=== PATIENT | female | born 1965 | race Hispanic/Latino ===

== ENCOUNTER 2018-03-23 12:43 | Emergency (ER) | payer MEDICARE ==
--- NOTE | 2018-03-23 13:17 | Emergency Department Report ---
ED Psych HPI - General Stated Complaint: EVALUATION Time Seen by Provider: 03/23/18 12:51 - History of Present Illness Initial Comments: Patient is 53 years old female with history of depression and anxiety and panic attack. Patient presented to the ER stating that she is having thoughts of killing herself. Patient does not have a specific plan. She's been very depressed recently. She denied any homicidal ideation, visual or auditory hallucination. MD Complaint: suicidal ideation, feels depressed - Related Data Home Medications Medication Instructions Recorded Confirmed Last Taken Gabapentin [Neurontin] 600 mg PO Q8H 06/20/15 06/20/15 06/20/15 Ibuprofen [Motrin 800 MG tab] 800 mg PO TID 06/20/15 06/20/15 06/20/15 clonazePAM [KlonoPIN] 2 mg PO TID 06/20/15 06/20/15 06/20/15 Allergies Allergy/AdvReac Type Severity Reaction Status Date / Time No Known Allergies Allergy Verified 06/14/15 13:01 ED Review of Systems ROS: Stated complaint: EVALUATION Other details as noted in HPI Comment: All other systems reviewed and negative Constitutional: denies: chills, fever Respiratory: denies: cough Gastrointestinal: denies: abdominal pain, nausea Musculoskeletal: denies: back pain Neurological: denies: headache, weakness ED Past Medical Hx - Past Medical History Hx Psychiatric Treatment: Yes (anxiety, panic attack) Additional medical history: jhoana's dz - Social History Smoking Status: Current Every Day Smoker Substance Use Type: None - Medications Home Medications: Home Medications Medication Instructions Recorded Confirmed Last Taken Type Gabapentin [Neurontin] 600 mg PO Q8H 06/20/15 06/20/15 06/20/15 History Ibuprofen [Motrin 800 MG tab] 800 mg PO TID 06/20/15 06/20/15 06/20/15 History clonazePAM [KlonoPIN] 2 mg PO TID 06/20/15 06/20/15 06/20/15 History ED Physical Exam - General Limitations: No Limitations General appearance: alert, in no apparent distress - Head Head exam: Present: atraumatic, normocephalic, normal inspection - Eye Eye exam: Present: normal appearance, PERRL - ENT ENT exam: Present: normal exam, normal orophraynx, mucous membranes moist - Neck Neck exam: Present: normal inspection, full ROM. Absent: tenderness, meningismus, lymphadenopathy, thyromegaly - Respiratory Respiratory exam: Present: normal lung sounds bilaterally. Absent: respiratory distress, wheezes, rales, rhonchi, chest wall tenderness, accessory muscle use, decreased breath sounds, prolonged expiratory - Cardiovascular Cardiovascular Exam: Present: regular rate, normal rhythm, normal heart sounds - GI/Abdominal GI/Abdominal exam: Present: soft, normal bowel sounds. Absent: distended, tenderness, guarding, rebound, rigid, organomegaly, mass, bruit, pulsatile mass , hernia - Extremities Exam Extremities exam: Present: normal inspection, full ROM, normal capillary refill - Back Exam Back exam: Present: normal inspection, full ROM. Absent: tenderness, CVA tenderness (R) - Neurological Exam Neurological exam: Present: alert, oriented X3, CN II-XII intact, normal gait, reflexes normal - Skin Skin exam: Present: warm, intact, normal color Critical care attestation.: If time is entered above; I have spent that time in minutes in the direct care of this critically ill patient, excluding procedure time. ED Disposition Clinical Impression: Depression, Suicidal ideation Disposition: DC/TX-65 PSY HOSP/PSY UNIT Is pt being admited?: No Condition: Stable Referrals: PRIMARY CARE, [Primary Care Provider] - 3-5 Days
[2018-03-23 13:39] LABS: Basophils # (Auto) 0.1 K/mm3 (0.0-0.1); Basophils % (Auto) 0.8 % (0.0-1.8); Eosinophils # (Auto) 0.1 K/mm3 (0.0-0.4); Eosinophils % (Auto) 0.9 % (0.0-4.3); Hematocrit 44.2 % (30.3-42.9); Hemoglobin 15.5 gm/dl (10.1-14.3); Lymphocytes # (Auto) 2.6 K/mm3 (1.2-5.4); Lymphocytes % (Auto) 32.3 % (13.4-35.0); Mean Corpuscular HGB Conc 35 % (30-34); Mean Corpuscular Hemoglobin 35 pg (28-32); Mean Corpuscular Volume 99 fl (79-97); Monocytes # (Auto) 0.4 K/mm3 (0.0-0.8); Monocytes % (Auto) 5.4 % (0.0-7.3); Platelet Count 343 K/mm3 (140-440); Red Blood Count 4.47 M/mm3 (3.65-5.03); Red Cell Distribution Width 13.5 % (13.2-15.2)
[2018-03-23 13:44] LABS: Bilirubin,Urine NEG (Negative); Blood,Urine NEG (Negative); Color,Urine Yellow (Yellow); Mucus,Urine FEW /HPF; Urobilinogen,Urine < 2.0 mg/dL (<2.0)
[2018-03-23 13:52] LABS: Amphetamine Screen,Urine PRESUMPTIVE NEGATIVE; Benzodiazepines Screen,Urine PRESUMPTIVE NEGATIVE; Cocaine Screen,Urine PRESUMPTIVE NEGATIVE; Methadone Screen,Urine PRESUMPTIVE NEGATIVE; Opiate Screen,Urine PRESUMPTIVE NEGATIVE
[2018-03-23 14:00] LABS: Alanine Aminotransferase 55 units/L (7-56); Albumin 4.9 g/dL (3.9-5); BUN/Creatinine Ratio 14; Blood Urea Nitrogen 11 mg/dL (7-17); Calcium 9.8 mg/dL (8.4-10.2); Hemolysis Index 10
[2018-03-23 14:07] LABS: Cannabinoid Screen,Urine PRESUMPTIVE POSITIVE
[2018-03-24 00:45] VITALS: BP 148/67
== END 2018-03-24 02:40 ==
LOC: EEVIPCON 12:43 → ED 12:43
DX: F32.9 Major depressive disorder, single episode, unspecified (principal); F41.0 Panic disorder [episodic paroxysmal anxiety]; F17.200 Nicotine dependence, unspecified, uncomplicated
CPT/HCPCS: 36415; 80053; 80307; 81001; 84703; 85025; 99285; G0480; 80320

== ENCOUNTER 2018-08-27 15:17 | Emergency (ER) | payer MEDICARE ==
[2018-08-27 16:37] LABS: Basophils # (Auto) 0.1 K/mm3 (0.0-0.1); Basophils % (Auto) 0.9 % (0.0-1.8); Eosinophils # (Auto) 0.1 K/mm3 (0.0-0.4); Eosinophils % (Auto) 1.1 % (0.0-4.3); Hemoglobin 15.3 gm/dl (10.1-14.3); Lymphocytes # (Auto) 2.9 K/mm3 (1.2-5.4); Lymphocytes % (Auto) 30.9 % (13.4-35.0); Mean Corpuscular HGB Conc 34 % (30-34); Mean Corpuscular Volume 99 fl (79-97); Monocytes # (Auto) 0.4 K/mm3 (0.0-0.8); Monocytes % (Auto) 4.7 % (0.0-7.3); Platelet Count 329 K/mm3 (140-440); Red Blood Count 4.54 M/mm3 (3.65-5.03); Red Cell Distribution Width 13.4 % (13.2-15.2)
--- NOTE | 2018-08-27 16:38 | Emergency Department Report ---
HPI - General Chief Complaint: Psych Time Seen by Provider: 08/27/18 15:56 - HPI HPI: 53-year-old female presents to the emergency department via EMS with complaint of suicidal thoughts and racing thoughts. Patient says that she has a history of anxiety for which he takes Ativan. She is a tobacco smoker and also occasionally will smoke marijuana but denies any other illicit drug use. She denies any history of schizophrenia, bipolar disorder or any other psychiatric conditions. She denies having a specific plan as to how she would harm herself. She denies any auditory or visual hallucinations or any homicidal ideations. 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 - Surgical History Past Surgical History?: Yes Additional Surgical History: hand surgery - Social History Smoking Status: Current Some Day Smoker Substance Use Type: None - Medications Home Medications: Home Medications Medication Instructions Recorded Confirmed Last Taken Type Gabapentin [Neurontin] 600 mg PO Q8H 06/20/15 06/20/15 06/20/15 History Ibuprofen [Motrin 800 MG tab] 800 mg PO TID 06/20/15 06/20/15 06/20/15 History clonazePAM [KlonoPIN] 2 mg PO TID 06/20/15 06/20/15 06/20/15 History ED Review of Systems ROS: Stated complaint: MENTAL HEALTH Other details as noted in HPI Comment: All other systems reviewed and negative Constitutional: denies: chills, fever Eyes: denies: eye pain, vision change ENT: denies: ear pain, throat pain Respiratory: denies: cough, shortness of breath Cardiovascular: denies: chest pain, palpitations Gastrointestinal: denies: abdominal pain, vomiting Genitourinary: denies: dysuria, discharge Musculoskeletal: denies: back pain, arthralgia Skin: denies: rash, lesions Neurological: denies: headache, numbness Psychiatric: suicidal thoughts. denies: auditory hallucinations, visual hallucinations Physical Exam - Physical Exam Physical Exam: GENERAL: The patient is well-developed well-nourished. HEENT: Normocephalic. Atraumatic. Patient has moist mucous membranes. EYES: Extraocular motions are intact. NECK: Supple. Trachea is midline. CHEST/LUNGS: Clear to auscultation. There is no respiratory distress noted. HEART/CARDIOVASCULAR: Regular. There is no tachycardia. There is no obvious murmur. ABDOMEN: Abdomen is soft, nontender. Patient has normal bowel sounds. There is no abdominal distention. SKIN: Skin is warm and dry. NEURO: The patient is awake, alert, and oriented. The patient is cooperative. The patient has no focal neurologic deficits. The patient has normal speech. MUSCULOSKELETAL: There is no tenderness or deformity. There is no evidence of acute injury. ED Medical Decision Making - Lab Data Result diagrams: 08/27/18 16:13 08/27/18 16:13 - Medical Decision Making Patient presents to the emergency department with suicidal ideations. For this reason she has been made a 1013 and we will seek inpatient psychiatric admission. Vital signs have been stable throughout her ED course thus far. Labs have been unremarkable including blood alcohol level and urine drug screen. The patient appears medically cleared for psychiatric admission. - Differential Diagnosis depression, anxiety, bipolar disorder, mood disorder Critical Care Time: No Critical care attestation.: If time is entered above; I have spent that time in minutes in the direct care of this critically ill patient, excluding procedure time. ED Disposition Clinical Impression: Suicidal ideations Depression Qualifiers: Depression Type: unspecified Qualified Code(s): F32.9 - Major depressive disorder, single episode, unspecified Disposition: DC/TX-65 PSY HOSP/PSY UNIT Is pt being admited?: No Condition: Stable Referrals: T[facility] SO[facility] [Primary Care Provider] - 3-5 Days Time of Disposition: 18:08
[2018-08-27 16:41] LABS: BUN/Creatinine Ratio 11; Blood Urea Nitrogen 8 mg/dL (7-17); Calcium 9.6 mg/dL (8.4-10.2); Hemolysis Index 11
[2018-08-27 17:03] VITALS: BP 146/91
[2018-08-27 17:17] LABS: Bacteria,Urine 1+ /HPF (Negative); Bilirubin,Urine NEG (Negative); Blood,Urine NEG (Negative); Color,Urine Straw (Yellow); Protein,Urine <15 mg/dL mg/dL (Negative); Urobilinogen,Urine < 2.0 mg/dL (<2.0)
[2018-08-27 17:27] LABS: Amphetamine Screen,Urine PRESUMPTIVE NEGATIVE; Benzodiazepines Screen,Urine PRESUMPTIVE NEGATIVE; Cannabinoid Screen,Urine PRESUMPTIVE NEGATIVE; Cocaine Screen,Urine PRESUMPTIVE NEGATIVE; Methadone Screen,Urine PRESUMPTIVE NEGATIVE; Opiate Screen,Urine PRESUMPTIVE NEGATIVE
[2018-08-27] MEDS ORDERED: NEURONTIN ONE (19:45)
[2018-08-27] MEDS ORDERED: ATIVAN PO SCH (20:00)
[2018-08-27] MEDS ORDERED: NEURONTIN PO SCH (22:00)
[2018-08-27] MEDS ORDERED: NON-FORMULARY (Gabapentin [Neurontin] 800 MG) PO SCH (22:00)
== END 2018-08-27 23:23 ==
LOC: ED 15:17 → EEVIPCON 15:17 → ED 23:23
DX: F32.9 Major depressive disorder, single episode, unspecified (principal); F17.200 Nicotine dependence, unspecified, uncomplicated; F41.0 Panic disorder [episodic paroxysmal anxiety]
CPT/HCPCS: 36415; 80048; 80307; 81001; 85025; 99285; G0480; 80320; J3246

== ENCOUNTER 2019-08-31 20:40 | Emergency (ER) | payer MEDICARE ==
[2019-08-31 21:20] LABS: Basophils % (Auto) 0.7 % (0.0-1.8); Eosinophils % (Auto) 0.7 % (0.0-4.3); Hematocrit 43.6 % (30.3-42.9); Hemoglobin 14.9 gm/dl (10.1-14.3); Lymphocytes # (Auto) 1.9 K/mm3 (1.2-5.4); Lymphocytes % (Auto) 31.6 % (13.4-35.0); Mean Corpuscular HGB Conc 34 % (30-34); Mean Corpuscular Volume 96 fl (79-97); Monocytes # (Auto) 0.3 K/mm3 (0.0-0.8); Monocytes % (Auto) 5.6 % (0.0-7.3); Platelet Count 279 K/mm3 (140-440); Red Blood Count 4.52 M/mm3 (3.65-5.03)
[2019-08-31 21:34] LABS: Bacteria,Urine 1+ /HPF (Negative); Bilirubin,Urine NEG (Negative); Blood,Urine SM (Negative); Color,Urine Yellow (Yellow); Mucus,Urine FEW /HPF; Urobilinogen,Urine < 2.0 mg/dL (<2.0)
[2019-08-31 21:36] LABS: BUN/Creatinine Ratio 13; Blood Urea Nitrogen 9 mg/dL (7-17); Calcium 9.9 mg/dL (8.4-10.2); Hemolysis Index 8
[2019-08-31 21:41] LABS: Amphetamine Screen,Urine PRESUMPTIVE NEGATIVE; Benzodiazepines Screen,Urine PRESUMPTIVE NEGATIVE; Cannabinoid Screen,Urine PRESUMPTIVE NEGATIVE; Cocaine Screen,Urine PRESUMPTIVE NEGATIVE; Methadone Screen,Urine PRESUMPTIVE NEGATIVE; Opiate Screen,Urine PRESUMPTIVE NEGATIVE
--- NOTE | 2019-08-31 22:14 | Emergency Department Report ---
ED General Adult HPI - General Chief complaint: Psych Stated complaint: SI Time Seen by Provider: 08/31/19 21:31 Source: patient Mode of arrival: Ambulatory Limitations: No Limitations - History of Present Illness Initial comments: Patient presents to the emergency department the chief complaint of suicidal ideation. Patient states that she has no plan to kill herself but is concerned because she is having suicidal thoughts. Patient also complains that she is having increased episodes of panic attacks and normally takes Ativan for them. Patient is anxious on my examination. Patient denies homicidal thoughts. Patient denies auditory visual hallucinations. -: Sudden Severity scale (0 -10): 0 Consistency: constant Improves with: none Worsens with: none Associated Symptoms: denies other symptoms Treatments Prior to Arrival: none - Related Data Home Medications Medication Instructions Recorded Confirmed Last Taken Gabapentin [Neurontin] 800 mg PO QID 08/27/18 08/27/18 08/27/18 LORazepam [Ativan] 1 mg PO TID 08/27/18 08/27/18 08/27/18 Allergies Allergy/AdvReac Type Severity Reaction Status Date / Time No Known Allergies Allergy Verified 06/14/15 13:01 ED Review of Systems ROS: Stated complaint: SI Other details as noted in HPI Constitutional: denies: chills, fever Eyes: denies: eye pain, eye discharge, vision change ENT: denies: ear pain, throat pain Respiratory: denies: cough, shortness of breath, wheezing Cardiovascular: denies: chest pain, palpitations Endocrine: no symptoms reported Gastrointestinal: denies: abdominal pain, nausea, diarrhea Genitourinary: denies: urgency, dysuria, discharge Musculoskeletal: denies: back pain, joint swelling, arthralgia Skin: denies: rash, lesions Neurological: denies: headache, weakness, paresthesias Psychiatric: suicidal thoughts. 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 - Surgical History Past Surgical History?: No Additional Surgical History: hand surgery - Social History Smoking Status: Current Every Day Smoker - Medications Home Medications: Home Medications Medication Instructions Recorded Confirmed Last Taken Type Gabapentin [Neurontin] 800 mg PO QID 08/27/18 08/27/1808/27/19 History LORazepam [Ativan] 1 mg PO TID 08/27/18 08/27/18 08/27/18 History ED Physical Exam - General Limitations: No Limitations General appearance: alert, in no apparent distress - Head Head exam: Present: atraumatic, normocephalic - Eye Eye exam: Present: normal appearance, PERRL, EOMI - ENT ENT exam: Present: mucous membranes moist - Neck Neck exam: Present: normal inspection - Respiratory Respiratory exam: Present: normal lung sounds bilaterally. Absent: respiratory distress - Cardiovascular Cardiovascular Exam: Present: regular rate, normal rhythm. Absent: systolic murmur, diastolic murmur, rubs, gallop - GI/Abdominal GI/Abdominal exam: Present: soft, normal bowel sounds. Absent: distended, tenderness - Extremities Exam Extremities exam: Present: normal inspection - Back Exam Back exam: Present: normal inspection - Neurological Exam Neurological exam: Present: alert, oriented X3, CN II-XII intact. Absent: motor sensory deficit - Psychiatric Psychiatric exam: Present: normal affect, normal mood, suicidal ideation - Skin Skin exam: Present: warm, dry, intact, normal color. Absent: rash ED Medical Decision Making - Lab Data Result diagrams: 08/31/19 21:05 08/31/19 21:05 Lab Results 08/31/19 08/31/19 08/31/19 Range/Units 21:05 21:05 21:05 WBC (4.5-11.0) K/mm3 RBC (3.65-5.03) M/mm3 Hgb (10.1-14.3) gm/dl Hct (30.3-42.9) % MCV (79-97) fl MCH (28-32) pg MCHC (30-34) % RDW (13.2-15.2) % Plt Count (140-440) K/mm3 Lymph % (Auto) (13.4-35.0) % [place] % (Auto) (0.0-7.3) % Eos % (Auto) (0.0-4.3) % Baso % (Auto) (0.0-1.8) % Lymph # (1.2-5.4) K/mm3 [place] # (0.0-0.8) K/mm3 Eos # (0.0-0.4) K/mm3 Baso # (0.0-0.1) K/mm3 Seg Neutrophils % (40.0-70.0) % Seg Neutrophils # (1.8-7.7) K/mm3 Sodium 136 L (137-145) mmol/L Potassium 3.6 (3.6-5.0) mmol/L Chloride 99.2 (98-107) mmol/L Carbon Dioxide 21 L (22-30) mmol/L Anion Gap 19 mmol/L BUN 9 (7-17) mg/dL Creatinine 0.7 (0.7-1.2) mg/dL Estimated GFR > 60 ml/min BUN/Creatinine Ratio 13 % Glucose 104 H (65-100) mg/dL Calcium 9.9 (8.4-10.2) mg/dL Urine Color (Yellow) Urine Turbidity (Clear) Urine pH (5.0-7.0) Ur Specific [place] (1.003-1.030) Urine Protein (Negative) mg/dL Urine Glucose (UA) (Negative) mg/dL Urine Ketones (Negative) mg/dL Urine Blood (Negative) Urine Nitrite (Negative) Urine Bilirubin (Negative) Urine Urobilinogen (<2.0) mg/dL Ur Leukocyte Esterase (Negative) Urine WBC (Auto) (0.0-6.0) /HPF Urine RBC (Auto) (0.0-6.0) /HPF U Epithel Cells (Auto) (0-13.0) /HPF Urine Bacteria (Auto) (Negative) /HPF Urine Mucus /HPF Salicylates < 0.3 L (2.8-20.0) mg/dL Urine Opiates Screen Urine Methadone Screen Acetaminophen < 5.0 L (10.0-30.0) ug/mL Ur Barbiturates Screen Ur Phencyclidine Scrn Ur Amphetamines Screen U Benzodiazepines Scrn Urine Cocaine Screen U Marijuana (THC) Screen Drugs of Abuse Note Plasma/Serum Alcohol (0-0.07) % 08/31/19 08/31/19 08/31/19 Range/Units 21:05 21:05 21:19 WBC 6.0 (4.5-11.0) K/mm3 RBC 4.52 (3.65-5.03) M/mm3 Hgb 14.9 H (10.1-14.3) gm/dl Hct 43.6 H (30.3-42.9) % MCV 96 (79-97) fl MCH 33 H (28-32) pg MCHC 34 (30-34) % RDW 13.0 L (13.2-15.2) % Plt Count 279 (140-440) K/mm3 Lymph % (Auto) 31.6 (13.4-35.0) % [place] % (Auto) 5.6 (0.0-7.3) % Eos % (Auto) 0.7 (0.0-4.3) % Baso % (Auto) 0.7 (0.0-1.8) % Lymph # 1.9 (1.2-5.4) K/mm3 [place] # 0.3 (0.0-0.8) K/mm3 Eos # 0.0 (0.0-0.4) K/mm3 Baso # 0.0 (0.0-0.1) K/mm3 Seg Neutrophils % 61.4 (40.0-70.0) % Seg Neutrophils # 3.7 (1.8-7.7) K/mm3 Sodium (137-145) mmol/L Potassium (3.6-5.0) mmol/L Chloride (98-107) mmol/L Carbon Dioxide (22-30) mmol/L Anion Gap mmol/L BUN (7-17) mg/dL Creatinine (0.7-1.2) mg/dL Estimated GFR ml/min BUN/Creatinine Ratio % Glucose (65-100) mg/dL Calcium (8.4-10.2) mg/dL Urine Color Yellow (Yellow) Urine Turbidity Clear (Clear) Urine pH 5.0 (5.0-7.0) Ur Specific [place] 1.012 (1.003-1.030) Urine Protein 30 mg/dl (Negative) mg/dL Urine Glucose (UA) Neg (Negative) mg/dL Urine Ketones 20 (Negative) mg/dL Urine Blood Sm (Negative) Urine Nitrite Neg (Negative) Urine Bilirubin Neg (Negative) Urine Urobilinogen < 2.0 (<2.0) mg/dL Ur Leukocyte Esterase Tr (Negative) Urine WBC (Auto) 6.0 (0.0-6.0) /HPF Urine RBC (Auto) 2.0 (0.0-6.0) /HPF U Epithel Cells (Auto) 1.0 (0-13.0) /HPF Urine Bacteria (Auto) 1+ (Negative) /HPF Urine Mucus Few /HPF Salicylates (2.8-20.0) mg/dL Urine Opiates Screen Urine Methadone Screen Acetaminophen (10.0-30.0) ug/mL Ur Barbiturates Screen Ur Phencyclidine Scrn Ur Amphetamines Screen U Benzodiazepines Scrn Urine Cocaine Screen U Marijuana (THC) Screen Drugs of Abuse Note Plasma/Serum Alcohol < 0.01 (0-0.07) % 08/31/19 Range/Units 21:19 WBC (4.5-11.0) K/mm3 RBC (3.65-5.03) M/mm3 Hgb (10.1-14.3) gm/dl Hct (30.3-42.9) % MCV (79-97) fl MCH (28-32) pg MCHC (30-34) % RDW (13.2-15.2) % Plt Count (140-440) K/mm3 Lymph % (Auto) (13.4-35.0) % [place] % (Auto) (0.0-7.3) % Eos % (Auto) (0.0-4.3) % Baso % (Auto) (0.0-1.8) % Lymph # (1.2-5.4) K/mm3 [place] # (0.0-0.8) K/mm3 Eos # (0.0-0.4) K/mm3 Baso # (0.0-0.1) K/mm3 Seg Neutrophils % (40.0-70.0) % Seg Neutrophils # (1.8-7.7) K/mm3 Sodium (137-145) mmol/L Potassium (3.6-5.0) mmol/L Chloride (98-107) mmol/L Carbon Dioxide (22-30) mmol/L Anion Gap mmol/L BUN (7-17) mg/dL Creatinine (0.7-1.2) mg/dL Estimated GFR ml/min BUN/Creatinine Ratio % Glucose (65-100) mg/dL Calcium (8.4-10.2) mg/dL Urine Color (Yellow) Urine Turbidity (Clear) Urine pH (5.0-7.0) Ur Specific [place] (1.003-1.030) Urine Protein (Negative) mg/dL Urine Glucose (UA) (Negative) mg/dL Urine Ketones (Negative) mg/dL Urine Blood (Negative) Urine Nitrite (Negative) Urine Bilirubin (Negative) Urine Urobilinogen (<2.0) mg/dL Ur Leukocyte Esterase (Negative) Urine WBC (Auto) (0.0-6.0) /HPF Urine RBC (Auto) (0.0-6.0) /HPF U Epithel Cells (Auto) (0-13.0) /HPF Urine Bacteria (Auto) (Negative) /HPF Urine Mucus /HPF Salicylates (2.8-20.0) mg/dL Urine Opiates Screen Presumptive negative Urine Methadone Screen Presumptive negative Acetaminophen (10.0-30.0) ug/mL Ur Barbiturates Screen Presumptive negative Ur Phencyclidine Scrn Presumptive negative Ur Amphetamines Screen Presumptive negative U Benzodiazepines Scrn Presumptive negative Urine Cocaine Screen Presumptive negative U Marijuana (THC) Screen Presumptive negative Drugs of Abuse Note Disclamer Plasma/Serum Alcohol (0-0.07) % - Medical Decision Making MEDICALLY CLEARED AWAITING MENTAL HEALTH EVALUATION Critical care attestation.: If time is entered above; I have spent that time in minutes in the direct care of this critically ill patient, excluding procedure time. ED Disposition Clinical Impression: Suicidal ideation Disposition: DC/TX-65 PSY HOSP/PSY UNIT Is pt being admited?: No Does the pt Need Aspirin: No Condition: Stable Referrals: PRIMARY CARE, [Primary Care Provider] - 3-5 Days
[2019-08-31] MEDS ORDERED: LORazepam 1 MG TAB PO ONE (22:46)
[2019-08-31] MEDS ORDERED: LORazepam 1 MG TAB ONE (22:46)
[2019-09-01] MEDS ORDERED: LORazepam 1 MG TAB PO ONE (11:27)
[2019-09-01 20:09] VITALS: BP 149/87
== END 2019-09-01 22:58 | disposition other institution (70) ==
LOC: ED 20:40
DX: R45.851 Suicidal ideations (principal); F41.9 Anxiety disorder, unspecified; F17.200 Nicotine dependence, unspecified, uncomplicated; Z98.890 Other specified postprocedural states; Z79.899 Other long term (current) drug therapy
CPT/HCPCS: 36415; 80048; 80307; 80320; 81001; 85025; G0480

== ENCOUNTER 2019-09-26 23:21 | Emergency (ER) | payer MEDICARE ==
--- NOTE | 2019-09-26 23:38 | Emergency Department Report ---
HPI - General Time Seen by Provider: 09/26/19 23:25 - HPI HPI: 54-year-old female presents to the emergency department via EMS with a complaint of depression and suicidal ideations. The patient also admits to some generic homicidal ideations that she does not want to hurt anyone in particular but does say that she feels "like I might hurt somebody." The patient denies any specific reason as to why she is feeling so depressed and suicidal at this time. The suicidal ideation started earlier today. Patient says that she has a diagnosed history of anxiety for which she takes Ativan. She also has a medical history of "permanent nerve damage" for which she takes gabapentin. She has been inpatient at [facility] in the past. She is a tobacco smoker but denies an y illicit drug use or any heavy alcohol use/abuse. 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 - Surgical History Past Surgical History?: Yes Hx Cholecystectomy: No Hx Appendectomy: No Additional Surgical History: hand surgery - Social History Smoking Status: Current Some Day Smoker Substance Use Type: None - Medications Home Medications: Home Medications Medication Instructions Recorded Confirmed Last Taken Type LORazepam [Ativan] 1 mg PO TID 08/27/18 09/02/19 08/27/18 History Doxepin [SINEquan] 10 mg PO QHS #30 capsule 09/10/19 Unknown Rx Escitalopram [Lexapro] 5 mg PO QDAY #30 tablet 09/10/19 Unknown Rx Gabapentin [Neurontin] 800 mg PO TID #90 09/10/19 Unknown Rx Melatonin [Melatonin 5MG TAB] 5 mg PO QHS PRN #30 tablet 09/10/19 Unknown Rx Nystatin [Nystop Powder] 1 applic TP BID powder 09/10/19 Unknown Rx ED Review of Systems ROS: Stated complaint: SUICIDAL IDEATIONS Other details as noted in HPI Comment: All other systems reviewed and negative Constitutional: denies: chills, fever Eyes: denies: eye pain, vision change ENT: denies: ear pain, throat pain Respiratory: denies: cough, shortness of breath Cardiovascular: denies: chest pain, palpitations Gastrointestinal: denies: abdominal pain, vomiting Musculoskeletal: denies: back pain, arthralgia Neurological: denies: headache, weakness Psychiatric: anxiety, depression, homicidal thoughts, suicidal thoughts. denies: auditory hallucinations, visual hallucinations Physical Exam - Physical Exam Vital Signs: Vital Signs 09/26/19 23:30 Temperature 98.1 F Pulse Rate 89 Respiratory 18 Rate Blood Pressure 113/97 O2 Sat by Pulse 96 Oximetry Physical Exam: GENERAL: The patient is well-developed well-nourished. HENT: Normocephalic. Atraumatic. Patient has moist mucous membranes. EYES: Extraocular motions are intact. NECK: Supple. Trachea is midline. CHEST/LUNGS: Clear to auscultation. There is no respiratory distress noted. HEART/CARDIOVASCULAR: Regular. There is no tachycardia. ABDOMEN: Abdomen is soft, nontender. Patient has normal bowel sounds. SKIN: Skin is warm and dry. NEURO: The patient is awake, alert, and oriented. The patient is cooperative. Normal speech. MUSCULOSKELETAL: There is no tenderness or deformity. There is no evidence of acute injury. ED Course Vital Signs 09/26/19 23:30 Temperature 98.1 F Pulse Rate 89 Respiratory 18 Rate Blood Pressure 113/97 O2 Sat by Pulse 96 Oximetry ED Medical Decision Making - Lab Data Result diagrams: 09/26/19 23:35 09/26/19 23:35 - Medical Decision Making This patient presents to the emergency department with complaint of depression and suicidal ideations. However the reason for these feelings are nonspecific. The patient says that she would overdose on pills in order to harm herself. For all these reasons the patient has been made a 1013. Patient's labs are mostly unremarkable including CBC, metabolic panel, blood alcohol level, urine drug screen, but the patient does have a urinary tract infection. She has been started on Macrobid. Vital signs stable throughout her ED course. The patient is medically cleared for psychiatric placement. - Differential Diagnosis Depression, bipolar disorder, schizophrenia, schizoaffective, substance abu Critical Care Time: No Critical care attestation.: If time is entered above; I have spent that time in minutes in the direct care of this critically ill patient, excluding procedure time. ED Disposition Clinical Impression: Suicidal ideations Depression Qualifiers: Depression Type: unspecified Qualified Code(s): F32.9 - Major depressive disorder, single episode, unspecified Disposition: DC/TX-65 PSY HOSP/PSY UNIT Is pt being admited?: No Condition: Stable Time of Disposition: 05:58
[2019-09-27 00:25] LABS: Bacteria,Urine 1+ /HPF (Negative); Bilirubin,Urine NEG (Negative); Blood,Urine SM (Negative); Color,Urine Yellow (Yellow); Mucus,Urine 2+ /HPF; Urobilinogen,Urine < 2.0 mg/dL (<2.0)
[2019-09-27 00:28] LABS: Amphetamine Screen,Urine PRESUMPTIVE NEGATIVE; Benzodiazepines Screen,Urine PRESUMPTIVE NEGATIVE; Cannabinoid Screen,Urine PRESUMPTIVE NEGATIVE; Cocaine Screen,Urine PRESUMPTIVE NEGATIVE; Methadone Screen,Urine PRESUMPTIVE NEGATIVE; Opiate Screen,Urine PRESUMPTIVE NEGATIVE
[2019-09-27 00:44] LABS: Basophils # (Auto) 0.1 K/mm3 (0.0-0.1); Basophils % (Auto) 0.8 % (0.0-1.8); Eosinophils # (Auto) 0.1 K/mm3 (0.0-0.4); Eosinophils % (Auto) 1.3 % (0.0-4.3); Hemoglobin 15.1 gm/dl (10.1-14.3); Lymphocytes # (Auto) 1.9 K/mm3 (1.2-5.4); Mean Corpuscular HGB Conc 34 % (30-34); Mean Corpuscular Volume 98 fl (79-97); Monocytes # (Auto) 0.4 K/mm3 (0.0-0.8); Monocytes % (Auto) 6.7 % (0.0-7.3); Platelet Count 307 K/mm3 (140-440); Red Blood Count 4.61 M/mm3 (3.65-5.03)
[2019-09-27 01:09] LABS: BUN/Creatinine Ratio 14; Blood Urea Nitrogen 11 mg/dL (7-17); Calcium 10.2 mg/dL (8.4-10.2); Hemolysis Index 4
[2019-09-27] MEDS ORDERED: LORazepam 1 MG TAB PO ONE ×3 (02:13→12:19)
[2019-09-27] MEDS: NITROFURANTOIN MONOHYD/M-CRYST 100 MG CAP PO SCH ×2 (02:17→11:12)
[2019-09-27 08:44] VITALS: BP 128/89
== END 2019-09-27 15:00 ==
LOC: ED 23:21
DX: F32.9 Major depressive disorder, single episode, unspecified (principal); R45.851 Suicidal ideations; F17.200 Nicotine dependence, unspecified, uncomplicated; F41.9 Anxiety disorder, unspecified
CPT/HCPCS: 36415; 80048; 80307; 80320; 81001; 85025; 87076; 87086; 87186; G0480

== ENCOUNTER 2020-01-29 11:32 | Emergency (ER) | payer MEDICARE ==
[2020-01-29 12:44] VITALS: BP 134/87
[2020-01-29] MEDS ORDERED: MELATONIN 5 MG TAB PO PRN (14:10)
[2020-01-29] MEDS ORDERED: LORazepam 1 MG TAB PO ONE (14:11)
[2020-01-29] MEDS ORDERED: GABAPENTIN 400 MG CAP PO ONE (14:12)
[2020-01-29 14:44] LABS: Basophils % (Auto) 0.7 % (0.0-1.8); Eosinophils # (Auto) 0.1 K/mm3 (0.0-0.4); Eosinophils % (Auto) 1.2 % (0.0-4.3); Hematocrit 44.6 % (30.3-42.9); Hemoglobin 15.1 gm/dl (10.1-14.3); Lymphocytes # (Auto) 1.8 K/mm3 (1.2-5.4); Lymphocytes % (Auto) 26.4 % (13.4-35.0); Mean Corpuscular HGB Conc 34 % (30-34); Mean Corpuscular Volume 99 fl (79-97); Monocytes # (Auto) 0.3 K/mm3 (0.0-0.8); Monocytes % (Auto) 4.3 % (0.0-7.3); Platelet Count 297 K/mm3 (140-440); Red Blood Count 4.52 M/mm3 (3.65-5.03); Red Cell Distribution Width 13.5 % (13.2-15.2)
--- NOTE | 2020-01-29 14:44 | Emergency Department Report ---
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 Patient has been feeling suicidal since last night. She denies a trigger. She denies plan or previous suicide attempt. She wants to go to [facility] or [facility]. She denies auditory visual hallucinations. She is requesting continuation of her chronic Ativan and gabapentin. She states she is feeling anxious at this time - Related Data Home Medications Medication Instructions Recorded Confirmed Last Taken LORazepam [Ativan] 1 mg PO TID 08/27/18 01/29/20 08/27/18 Previous Rx's Medication Instructions Recorded Last Taken Type Doxepin [SINEquan] 10 mg PO QHS #30 capsule 09/10/19 Unknown Rx Escitalopram [Lexapro] 5 mg PO QDAY #30 tablet 09/10/19 Unknown Rx Gabapentin [Neurontin] 800 mg PO TID #90 09/10/19 Unknown Rx Melatonin [Melatonin 5MG TAB] 5 mg PO QHS PRN #30 tablet 09/10/19 Unknown Rx Nystatin [Nystop Powder] 1 applic TP BID powder 09/10/19 Unknown Rx Allergies Allergy/AdvReac Type Severity Reaction Status Date / Time No Known Allergies Allergy Verified 06/14/15 13:01 ED Review of Systems ROS: Stated complaint: SI Other details as noted in HPI Comment: All other systems reviewed and negative 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 - Surgical History Hx Cholecystectomy: No Hx Appendectomy: No Additional Surgical History: hand surgery - Social History Smoking Status: Current Every Day Smoker Substance Use Type: None - Medications Home Medications: Home Medications Medication Instructions Recorded Confirmed Last Taken Type LORazepam [Ativan] 1 mg PO TID 08/27/18 01/29/20 08/27/18 History Doxepin [SINEquan] 10 mg PO QHS #30 capsule 09/10/19 01/29/20 Unknown Rx Escitalopram [Lexapro] 5 mg PO QDAY #30 tablet 09/10/19 01/29/20 Unknown Rx Gabapentin [Neurontin] 800 mg PO TID #90 09/10/19 01/29/20 Unknown Rx Melatonin [Melatonin 5MG TAB] 5 mg PO QHS PRN #30 tablet 09/10/19 01/29/20 Unknown Rx Nystatin [Nystop Powder] 1 applic TP BID powder 09/10/19 01/29/20 Unknown Rx ED Physical Exam - General Limitations: No Limitations - Other Other exam information: General: No acute distress Head: Atraumatic Eyes: normal appearance ENT: Moist mucous membranes Neck: Normal appearance, no midline tenderness Chest: Clear to auscultation bilaterally CV: Regular rate and rhythm Abdomen: Soft, normal bowel sounds, nontender, nondistended, no rebound or guarding Back: Normal inspection Extremity: Normal inspection, full range of motion Neuro: Alert O x 3, no facial asymmetry, speech clear, no gross motor sensory deficit Psych: Appropriate behavior Skin: No rash ED Course Vital Signs 01/29/20 01/29/20 01/29/20 12:32 12:45 14:47 Temperature 99.1 F Pulse Rate 98 H Respiratory 18 Rate Blood Pressure 134/87 O2 Sat by Pulse 99 98 Oximetry - Consultations Consultation #1: 01/29/20 16:25 Patient received mental health evaluation. Patient does not meet criteria for inpatient psychiatric treatment and case was discussed with nurse practitioner. Patient also has a outpatient counselor and it was verified the patient has medications currently as well as prescriptions for a 3-month supply of her medications. Since patient has outpatient counseling resources in place and has access to his medications she will be discharged. As per crisis note: Pt is a 54 yo female presenting to ED for MHE, as pt reported SI and requested to be admitted to [facility]. During ax, pt presented as calm and cooperative, with congruent affect. Pt displays lucid thought process. Pt stated she came in for suicidal ideations. Pt denies plan. Pt denies A/V H. Pt reports a dx of Anxiety and Panic Attacks, with connection to OP tx. Per records, pt is connected to [facility]. Pt informed collections representative that she has been out of her psychiatric medication. Pt initially reported attending day program Tuesday, Tuesday and Tuesday. Once collections representative attempted to explore f/u care on Tuesday to address medication concern, pt recanted and stated she does not go to program until Tuesday. Multicraft Operator contacted shield cleaner, Silvia of [facility] to inquire about pts treatment. Per Silvia, pt last received a 3-month supply for medication on December 18. Multicraft Operator informed that contact will be made with pharmacy to check if refill was picked up. Multicraft Operator also informed that pt is scheduled for day program services Tuesday-Tuesday; however, has recently not been coming out of [facility] when being picked up in the morning. Per Silvia, she will call to encourage pt to attend. Pt is scheduled to see SENIOR STORAGE ENGINE[facility] this upcoming , and medication will be explored. Recommendations: Multicraft Operator presents to ED with passive SI and is actively seeking IP tx admission, although she does not meet criteria for IP tx currently and is not presenting with acute sxs. Pt is well known to psychiatric team and is being recommended for discharge, with f/u OP tx with [facility]. Multicraft Operator confirmed with OP team. Case has been briefed with psychiatry team. ED Medical Decision Making - Lab Data Result diagrams: 01/29/20 14:27 01/29/20 14:27 Lab Results 01/29/20 01/29/20 01/29/20 Range/Units 14:27 14:27 14:27 WBC 6.8 (4.5-11.0) K/mm3 RBC 4.52 (3.65-5.03) M/mm3 Hgb 15.1 H (10.1-14.3) gm/dl Hct 44.6 H (30.3-42.9) % MCV 99 H (79-97) fl MCH 33 H (28-32) pg MCHC 34 (30-34) % RDW 13.5 (13.2-15.2) % Plt Count 297 (140-440) K/mm3 Lymph % (Auto) 26.4 (13.4-35.0) % [place] % (Auto) 4.3 (0.0-7.3) % Eos % (Auto) 1.2 (0.0-4.3) % Baso % (Auto) 0.7 (0.0-1.8) % Lymph # 1.8 (1.2-5.4) K/mm3 [place] # 0.3 (0.0-0.8) K/mm3 Eos # 0.1 (0.0-0.4) K/mm3 Baso # 0.0 (0.0-0.1) K/mm3 Seg Neutrophils % 67.4 (40.0-70.0) % Seg Neutrophils # 4.6 (1.8-7.7) K/mm3 Sodium 139 (137-145) mmol/L Potassium 4.3 (3.6-5.0) mmol/L Chloride 102.3 (98-107) mmol/L Carbon Dioxide 25 (22-30) mmol/L Anion Gap 16 mmol/L BUN 5 L (7-17) mg/dL Creatinine 0.7 (0.7-1.2) mg/dL Estimated GFR > 60 ml/min BUN/Creatinine Ratio 7 % Glucose 113 H (65-100) mg/dL Calcium 9.3 (8.4-10.2) mg/dL Salicylates < 0.3 L (2.8-20.0) mg/dL Acetaminophen (10.0-30.0) ug/mL Plasma/Serum Alcohol (0-0.07) % 01/29/20 01/29/20 Range/Units 14:27 14:27 WBC (4.5-11.0) K/mm3 RBC (3.65-5.03) M/mm3 Hgb (10.1-14.3) gm/dl Hct (30.3-42.9) % MCV (79-97) fl MCH (28-32) pg MCHC (30-34) % RDW (13.2-15.2) % Plt Count (140-440) K/mm3 Lymph % (Auto) (13.4-35.0) % [place] % (Auto) (0.0-7.3) % Eos % (Auto) (0.0-4.3) % Baso % (Auto) (0.0-1.8) % Lymph # (1.2-5.4) K/mm3 [place] # (0.0-0.8) K/mm3 Eos # (0.0-0.4) K/mm3 Baso # (0.0-0.1) K/mm3 Seg Neutrophils % (40.0-70.0) % Seg Neutrophils # (1.8-7.7) K/mm3 Sodium (137-145) mmol/L Potassium (3.6-5.0) mmol/L Chloride (98-107) mmol/L Carbon Dioxide (22-30) mmol/L Anion Gap mmol/L BUN (7-17) mg/dL Creatinine (0.7-1.2) mg/dL Estimated GFR ml/min BUN/Creatinine Ratio % Glucose (65-100) mg/dL Calcium (8.4-10.2) mg/dL Salicylates (2.8-20.0) mg/dL Acetaminophen 5.0 L (10.0-30.0) ug/mL Plasma/Serum Alcohol < 0.01 (0-0.07) % - Medical Decision Making Patient expressed suicidal ideation without plan. Patient has been cleared for discharge by mental health collections representative's we have also verified that she has access to outpatient treatment and medications. She will be discharged to follow-up and continue her current meds Critical Care Time: No Critical care attestation.: If time is entered above; I have spent that time in minutes in the direct care of this critically ill patient, excluding procedure time. ED Disposition Clinical Impression: Suicidal ideation Disposition: DC-01 TO HOME OR SELFCARE Is pt being admited?: No Does the pt Need Aspirin: No Condition: Stable Instructions: Suicide Prevention for Adults (ED) Additional Instructions: Continue your current medication as prescribed. Follow-up with your mental health providers return if symptoms worsen as indicated by your discharge instructions. Referrals: LAILA GALLEGO MD [Primary Care Provider] - 3-5 Days Your, psychiatrist [Other] - 3-5 Days Time of Disposition: 17:36
[2020-01-29 15:02] LABS: BUN/Creatinine Ratio 7; Blood Urea Nitrogen 5 mg/dL (7-17); Calcium 9.3 mg/dL (8.4-10.2); Hemolysis Index 18
[2020-01-29] MEDS ORDERED: GABAPENTIN 400 MG CAP PO SCH (20:00)
[2020-01-29] MEDS ORDERED: LORazepam 1 MG TAB PO SCH (20:00)
[2020-01-29] MEDS ORDERED: NON-FORMULARY EACH (Gabapentin [Neurontin] 800 MG) PO SCH (20:00)
[2020-01-29] MEDS ORDERED: DOXEPIN 10 MG CAP PO SCH (22:00)
[2020-01-30] MEDS ORDERED: ESCITALOPRAM 10 MG TAB PO SCH (10:00)
== END 2020-01-29 17:43 | disposition home or self-care (01) ==
LOC: ED 11:32
DX: R45.851 Suicidal ideations (principal); F17.200 Nicotine dependence, unspecified, uncomplicated; Z98.890 Other specified postprocedural states; Z79.899 Other long term (current) drug therapy
CPT/HCPCS: 36415; 80048; 80320; 85025; 99283; G0480

== ENCOUNTER 2020-03-19 19:01 | Emergency (ER) | payer MEDICARE ==
[2020-03-19 20:15] LABS: Basophils % (Auto) 0.7 % (0.0-1.8); Eosinophils # (Auto) 0.1 K/mm3 (0.0-0.4); Eosinophils % (Auto) 1.6 % (0.0-4.3); Hematocrit 42.2 % (30.3-42.9); Hemoglobin 14.3 gm/dl (10.1-14.3); Lymphocytes # (Auto) 2.3 K/mm3 (1.2-5.4); Lymphocytes % (Auto) 31.3 % (13.4-35.0); Mean Corpuscular HGB Conc 34 % (30-34); Mean Corpuscular Volume 100 fl (79-97); Monocytes # (Auto) 0.3 K/mm3 (0.0-0.8); Monocytes % (Auto) 4.3 % (0.0-7.3); Platelet Count 278 K/mm3 (140-440); Red Blood Count 4.21 M/mm3 (3.65-5.03); Red Cell Distribution Width 13.7 % (13.2-15.2)
[2020-03-19 20:29] LABS: BUN/Creatinine Ratio 9; Blood Urea Nitrogen 6 mg/dL (7-17); Calcium 9.3 mg/dL (8.4-10.2); Hemolysis Index 16
--- NOTE | 2020-03-19 20:37 | Emergency Department Report ---
HPI - General Chief Complaint: Psych PUI?: No Time Seen by Provider: 03/19/20 20:27 - HPI HPI: Room 16 The patient is a 55-year-old female present with a chief complaint of suicidal ideation. Patient states she started feeling suicidal yesterday but denies any plans or active attempts at harming herself. Patient states she considered "pills" but never acted on it. ED Past Medical Hx - Past Medical History Hx Psychiatric Treatment: Yes (anxiety, panic attack) Additional medical history: jhoana's dz, 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 - Surgical History Additional Surgical History: hand surgery - Family History Family history: no significant - Social History Smoking Status: Current Every Day Smoker (1/2 pack/day) Substance Use Type: None (Denies illicit drug use) - Medications Home Medications: Home Medications Medication Instructions Recorded Confirmed Last Taken Type LORazepam [Ativan] 1 mg PO TID 08/27/18 01/29/20 08/27/18 History Doxepin [SINEquan] 10 mg PO QHS #30 capsule 09/10/19 01/29/20 Unknown Rx Escitalopram [Lexapro] 5 mg PO QDAY #30 tablet 09/10/19 01/29/20 Unknown Rx Gabapentin [Neurontin] 800 mg PO TID #90 09/10/19 01/29/20 Unknown Rx Melatonin [Melatonin 5MG TAB] 5 mg PO QHS PRN #30 tablet 09/10/19 01/29/20 Unknown Rx Nystatin [Nystop Powder] 1 applic TP BID powder 09/10/19 01/29/20 Unknown Rx ED Review of Systems ROS: Stated complaint: MH Other details as noted in HPI Constitutional: no symptoms reported Respiratory: no symptoms reported Endocrine: no symptoms reported Psychiatric: suicidal thoughts Physical Exam - Physical Exam Vital Signs: Vital Signs 03/19/20 19:23 Temperature 98.1 F Pulse Rate 90 Respiratory 20 Rate Blood Pressure 159/85 O2 Sat by Pulse 97 Oximetry Physical Exam: GENERAL: The patient is well-developed well-nourished female sitting in chair not appearing to be in acute distress HEENT: Normocephalic. Atraumatic. Extraocular motions are intact. Patient has moist mucous membranes. NECK: Supple. Trachea midline CHEST/LUNGS: Clear to auscultation. There is no respiratory distress noted. HEART/CARDIOVASCULAR: Regular. There is no tachycardia. There is no gallop rub or murmur. ABDOMEN: Abdomen is soft, nontender. Patient has normal bowel sounds. There is no abdominal distention. SKIN: There is no rash. There is no edema. There is no diaphoresis. NEURO: The patient is awake, alert, and oriented. The patient is cooperative. The patient has normal speech MUSCULOSKELETAL: There is no evidence of acute injury. ED Course Vital Signs 03/19/20 19:23 Temperature 98.1 F Pulse Rate 90 Respiratory 20 Rate Blood Pressure 159/85 O2 Sat by Pulse 97 Oximetry ED Medical Decision Making - Lab Data Result diagrams: 03/19/20 19:55 03/19/20 19:55 Laboratory Tests 03/19/20 03/19/20 03/19/20 19:25 19:55 19:55 WBC RBC Hgb Hct MCV MCH MCHC RDW Plt Count Lymph % (Auto) [place] % (Auto) Eos % (Auto) Baso % (Auto) Lymph # [place] # Eos # Baso # Seg Neutrophils % Seg Neutrophils # Sodium Potassium Chloride Carbon Dioxide Anion Gap BUN Creatinine Estimated GFR BUN/Creatinine Ratio Glucose Calcium Urine Color Urine Turbidity Urine pH Ur Specific [place] Urine Protein Urine Glucose (UA) Urine Ketones Urine Blood Urine Nitrite Urine Bilirubin Urine Urobilinogen Ur Leukocyte Esterase Urine WBC (Auto) Urine RBC (Auto) Salicylates < 0.3 L Urine Opiates Screen Presumptive negative Urine Methadone Screen Presumptive negative Acetaminophen 5.0 L Ur Barbiturates Screen Presumptive negative Ur Phencyclidine Scrn Presumptive negative Ur Amphetamines Screen Presumptive negative U Benzodiazepines Scrn Presumptive negative Urine Cocaine Screen Presumptive negative U Marijuana (THC) Screen Presumptive negative Drugs of Abuse Note Disclamer Plasma/Serum Alcohol 03/19/20 03/19/20 03/19/20 19:55 19:55 19:55 WBC 7.3 RBC 4.21 Hgb 14.3 Hct 42.2 MCV 100 H MCH 34 H MCHC 34 RDW 13.7 Plt Count 278 Lymph % (Auto) 31.3 [place] % (Auto) 4.3 Eos % (Auto) 1.6 Baso % (Auto) 0.7 Lymph # 2.3 [place] # 0.3 Eos # 0.1 Baso # 0.0 Seg Neutrophils % 62.1 Seg Neutrophils # 4.5 Sodium 139 Potassium 3.9 Chloride 101.5 Carbon Dioxide 24 Anion Gap 17 BUN 6 L Creatinine 0.7 Estimated GFR > 60 BUN/Creatinine Ratio 9 Glucose 99 Calcium 9.3 Urine Color Urine Turbidity Urine pH Ur Specific [place] Urine Protein Urine Glucose (UA) Urine Ketones Urine Blood Urine Nitrite Urine Bilirubin Urine Urobilinogen Ur Leukocyte Esterase Urine WBC (Auto) Urine RBC (Auto) Salicylates Urine Opiates Screen Urine Methadone Screen Acetaminophen Ur Barbiturates Screen Ur Phencyclidine Scrn Ur Amphetamines Screen U Benzodiazepines Scrn Urine Cocaine Screen U Marijuana (THC) Screen Drugs of Abuse Note Plasma/Serum Alcohol < 0.01 03/19/20 20:40 WBC RBC Hgb Hct MCV MCH MCHC RDW Plt Count Lymph % (Auto) [place] % (Auto) Eos % (Auto) Baso % (Auto) Lymph # [place] # Eos # Baso # Seg Neutrophils % Seg Neutrophils # Sodium Potassium Chloride Carbon Dioxide Anion Gap BUN Creatinine Estimated GFR BUN/Creatinine Ratio Glucose Calcium Urine Color Colorless Urine Turbidity Clear Urine pH 8.0 H Ur Specific [place] 1.004 Urine Protein <15 mg/dl Urine Glucose (UA) Neg Urine Ketones Neg Urine Blood Neg Urine Nitrite Neg Urine Bilirubin Neg Urine Urobilinogen < 2.0 Ur Leukocyte Esterase Neg Urine WBC (Auto) 1.0 Urine RBC (Auto) < 1.0 Salicylates Urine Opiates Screen Urine Methadone Screen Acetaminophen Ur Barbiturates Screen Ur Phencyclidine Scrn Ur Amphetamines Screen U Benzodiazepines Scrn Urine Cocaine Screen U Marijuana (THC) Screen Drugs of Abuse Note Plasma/Serum Alcohol - Differential Diagnosis Suicidal ideation Critical care attestation.: If time is entered above; I have spent that time in minutes in the direct care of this critically ill patient, excluding procedure time. ED Disposition Clinical Impression: Suicidal ideation Disposition: DC/TX-65 PSY HOSP/PSY UNIT Is pt being admited?: No Does the pt Need Aspirin: No Condition: Stable Referrals: PRIMARY CARE, [Primary Care Provider] - 3-5 Days Time of Disposition: 20:38 (Awaiting placement)
[2020-03-19] MEDS: LORazepam 1 MG TAB PO SCH (22:17)
[2020-03-19] MEDS: GABAPENTIN 400 MG CAP PO SCH (22:18)
[2020-03-19 23:14] LABS: Bilirubin,Urine NEG (Negative); Blood,Urine NEG (Negative); Color,Urine Colorless (Yellow); Protein,Urine <15 mg/dL mg/dL (Negative); RBC,Urine < 1.0 /HPF (0.0-6.0); Urobilinogen,Urine < 2.0 mg/dL (<2.0)
[2020-03-19 23:15] LABS: Amphetamine Screen,Urine PRESUMPTIVE NEGATIVE; Benzodiazepines Screen,Urine PRESUMPTIVE NEGATIVE; Cannabinoid Screen,Urine PRESUMPTIVE NEGATIVE; Cocaine Screen,Urine PRESUMPTIVE NEGATIVE; Methadone Screen,Urine PRESUMPTIVE NEGATIVE; Opiate Screen,Urine PRESUMPTIVE NEGATIVE
[2020-03-20] MEDS: GABAPENTIN 400 MG CAP PO SCH ×3 (02:47→13:36)
[2020-03-20 09:08] VITALS: BP 121/86
--- NOTE | 2020-03-20 09:08 | Consultation ---
History of Present Illness - Reason for Consult Consult date: 03/20/20 Reason for consult: MHE Requesting physician: JULIÁN MONCADA - Chief Complaint Chief complaint: SI - History of Present Psychiatric Illness Per ED Provider: The patient is a 55-year-old female present with a chief complaint of suicidal ideation. Patient states she started feeling suicidal yesterday but denies any plans or active attempts at harming herself. Patient states she considered "pills" but never acted on it. Per MHA: Pt is a 54 yo female presenting to ED for MHE, as pt reported SI and requested to be admitted to [facility]. During ax, pt presented as calm and cooperative, with congruent affect. Pt displays lucid thought process. Pt stated she came in for suicidal ideations. Pt denies plan. Pt denies A/V H. Pt reports a dx of Anxiety and Panic Attacks, with connection to OP tx. Per records, pt is connected to [facility]. Pt informed lunchroom attendant that she has been out of her psychiatric medication. Pt initially reported attending day program Tuesday, Tuesday and Tuesday. Once lunchroom attendant attempted to explore f/u care on Tuesday to address medication concern, pt recanted and stated she does not go to program until Tuesday. Auto Parts Counter Person contacted power screwdriver operator, Silvia of [facility] to inquire about pts treatment. Per Silvia, pt last received a 3-month supply for medication on December 18. [employer] Counter Person informed that contact will be made with pharmacy to check if refill was picked up. [employer] Counter Person also informed that pt is scheduled for day program services Tuesday-Tuesday; however, has recently not been coming out of home when being picked up in the morning. Per Silvia, she will call to encourage pt to attend. Pt is scheduled to see [facility] N[facility] this upcoming , and medication will be explored. PSYCH HPI Patient is a 55 year old single, unemployed currently on disability 55 year old female who resides in a transitional home with past psychiatric history of depression and panic attacks presents to the ED with chief complaint of suicidal ideation. Patient reports: Now 1 from a transitional living facility after sister having suicidal thoughts and she does not know why. She reports feeling severely depressed with unknown specific trigger, denies hearing voices, she reports sleeping pretty good denies no changes in appetite but endorses decreased interest and motivation to do anything at all. Patient reports she wishes that she knows why she is depressed that she would not be here. Patient appears restless, impulsive and constantly moving PAST PSYCHIATRIC HISTORY: Diagnoses: suicidal thoughts, panic attacks Suicide attempts or Self-harm behavior: Denies Prior psychiatric hospitalizations: Twice Substance Abuse history: Denies Previous psychiatric medications tried: Ativan, Gabapentin Outpatient treatment: Yes PAST MEDICAL HISTORY: None reported Family Psychiatric History None reported SOCIAL HISTORY Marital Status: Single Living Arrangements: "rents a room" Employment Status: Disabled Access to guns/weapons: Denied Education: High school diploma History of Abuse: Denies Legal History: Denies ROS: Constitutional: Negative for weight loss ENT: Negative for stridor Respiratory: Negative for cough or hemoptysis All other systems reviewed and are negative MENTAL STATUS EXAMINATION General Appearance and Behavior: Age appropriate, fair hygiene, wearing appropriate clothes, good eye contact, uncooperative polite with questioning. Cooperation: Participating and Guarded Psychomotor Behavior: Psychomotor agitation Mood: Depressed Affect and affective range: decreased range, dysthymic,, irritable Thought Process: Illogical Thought Content: Illogical Speech: Normal volume, Regular rate and rhythm Intellectual Functioning: Average Suicidal Ideation: Suicidal Homicidal Ideation: Denies HI Impulse Control: Impaired Insight and Judgment: Impaired Memory: Prospective memory impaired Attention: Distractible Orientation: Alert, oriented, anxious Diagnoses: Assessment and Plan - Psychiatric problem (1) Bipolar 2 disorder, major depressive episode Current Visit: Yes Status: Acute Treatment Plan MEDICATIONS: Risks, benefits and alternatives of medications discussed with the patient, questions answered and consent obtained from patient. PSYCHOTHERAPY: Supportive psychotherapy provided MEDICAL: Per primary team DELIRIUM PRECAUTIONS: Please re-orient patient frequently, keep lights on during the day, and minimize benzodiazepines and opiates as these medications could worsen patient's confusion. ECHOCARDIOGRAPH TECH: DISPOSITION: Do Recommend acute inpatient psychiatric hospitalization at this time LEGAL STATUS: 1013 FOLLOW-UP: Will follow Thank you for the consult. Please contact with any questions and/or concerns. Medications and Allergies Allergies Allergy/AdvReac Type Severity Reaction Status Date / Time No Known Allergies Allergy Verified 03/19/20 19:21 Home Medications Medication Instructions Recorded Confirmed Last Taken Type LORazepam [Ativan] 1 mg PO TID 08/27/18 01/29/20 08/27/18 History Doxepin [SINEquan] 10 mg PO QHS #30 capsule 09/10/19 01/29/20 Unknown Rx Escitalopram [Lexapro] 5 mg PO QDAY #30 tablet 09/10/19 01/29/20 Unknown Rx Gabapentin [Neurontin] 800 mg PO TID #90 09/10/19 01/29/20 Unknown Rx Melatonin [Melatonin 5MG TAB] 5 mg PO QHS PRN #30 tablet 09/10/19 01/29/20 Unknown Rx Nystatin [Nystop Powder] 1 applic TP BID powder 09/10/19 01/29/20 Unknown Rx Active Meds: Active Medications Gabapentin (Gabapentin) 800 mg PO TID [facility] Last Admin: 03/20/20 08:37 Dose: 800 mg Documented by: Lorazepam (Ativan) 1 mg PO BID [facility] Last Admin: 03/19/20 22:17 Dose: 1 mg Documented by: Mental Status Exam - Vital signs Last Vital Signs Temp 98.8 F 03/20/20 09:06 Pulse 74 03/20/20 09:06 Resp 18 03/20/20 09:06 BP 121/86 03/20/20 09:06 Pulse Ox 97 03/20/20 09:06 Results Result Diagrams: 03/19/20 19:55 03/19/20 19:55 Abnormal lab results 03/19/20 03/19/20 03/19/20 Range/Units 19:55 19:55 19:55 MCV (79-97) fl MCH (28-32) pg BUN 6 L (7-17) mg/dL Urine pH (5.0-7.0) Salicylates < 0.3 L (2.8-20.0) mg/dL Acetaminophen 5.0 L (10.0-30.0) ug/mL 03/19/20 03/19/20 Range/Units 19:55 20:40 MCV 100 H (79-97) fl MCH 34 H (28-32) pg BUN (7-17) mg/dL Urine pH 8.0 H (5.0-7.0) Salicylates (2.8-20.0) mg/dL Acetaminophen (10.0-30.0) ug/mL All other labs normal. Assessment and Plan - Psychiatric problem (1) Bipolar 2 disorder, major depressive episode Current Visit: Yes Status: Acute
[2020-03-20] MEDS: LORazepam 1 MG TAB PO SCH (09:41)
== END 2020-03-20 19:17 ==
LOC: ED 19:01 → EEVIPCON 19:01 → ED 03-20 19:17
DX: R45.851 Suicidal ideations (principal); F41.9 Anxiety disorder, unspecified; F41.0 Panic disorder [episodic paroxysmal anxiety]; F17.200 Nicotine dependence, unspecified, uncomplicated; Z98.890 Other specified postprocedural states; Z79.899 Other long term (current) drug therapy
CPT/HCPCS: 36415; 80048; 80307; 81001; 85025; 99284; U0003; 80320; G0480

== ENCOUNTER 2020-03-20 14:52 | Inpatient (IN) | payer MEDICARE ==
[2020-03-20] MEDS ORDERED: MELATONIN 5 MG TAB PO PRN (15:59)
--- NOTE | 2020-03-20 16:01 | History and Physical Report ---
GP History & Physical - History of Present Illness Date of admission: 03/20/20 Date of Examination: 03/20/20 Reason for Admission: Danger to self History of Present Illness: Per ED Provider: The patient is a 55-year-old female present with a chief complaint of suicidal ideation. Patient states she started feeling suicidal yesterday but denies any plans or active attempts at harming herself. Patient states she considered "pills" but never acted on it. Per [facility]: Pt is a 54 yo female presenting to ED for MHE, as pt reported SI and requested to be admitted to [employer]. During ax, pt presented as calm and cooperative, with congruent affect. Pt displays lucid thought process. Pt stated she came in for suicidal ideations. Pt denies plan. Pt denies A/V H. Pt reports a dx of Anxiety and Panic Attacks, with connection to OP tx. Per records, pt is connected to [facility]. Pt informed lot boss that she has been out of her psychiatric medication. Pt initially reported attending day program Tuesday, Tuesday and Tuesday. Once lot boss attempted to explore f/u care on Tuesday to address medication concern, pt recanted and stated she does not go to program until Tuesday. Mobile Developer contacted van owner operator, Silvia of [employer] to inquire about pts treatment. Per Silvia, pt last received a 3-month supply for medication on December 18. Mobile Developer informed that contact will be made with pharmacy to check if refill was picked up. Mobile Developer also informed that pt is scheduled for day program services Tuesday-Tuesday; however, has recently not been coming out of home when being picked up in the morning. Per Silvia, she will call to encourage pt to attend. Pt is scheduled to see LICENSED VOCATIONAL NURSE this upcoming , and medication will be explored. PSYCH HPI Patient is a 55 year old single, unemployed currently on disability 55 year old female who resides in a transitional home with past psychiatric history of depression and panic attacks presents to the ED with chief complaint of suicidal ideation. Patient reports: Now 1 from a transitional living facility after sister having suicidal thoughts and she does not know why. She reports feeling severely depressed with unknown specific trigger, denies hearing voices, she reports sleeping pretty good denies no changes in appetite but end orses decreased interest and motivation to do anything at all. Patient reports she wishes that she knows why she is depressed that she would not be here. Patient appears restless, impulsive and constantly moving PAST PSYCHIATRIC HISTORY: Diagnoses: suicidal thoughts, panic attacks Suicide attempts or Self-harm behavior: Denies Prior psychiatric hospitalizations: Twice Substance Abuse history: Denies Previous psychiatric medications tried: Ativan, Gabapentin Outpatient treatment: Yes PAST MEDICAL HISTORY: None reported Family Psychiatric History None reported SOCIAL HISTORY Marital Status: Single Living Arrangements: "rents a room" Employment Status: Disabled Access to guns/weapons: Denied Education: High school diploma History of Abuse: Denies Legal History: Denies ROS: Constitutional: Negative for weight loss ENT: Negative for stridor Respiratory: Negative for cough or hemoptysis All other systems reviewed and are negative MENTAL STATUS EXAMINATION General Appearance and Behavior: Age appropriate, fair hygiene, wearing appropriate clothes, good eye contact, uncooperative polite with questioning. Cooperation: Participating and Guarded Psychomotor Behavior: Psychomotor agitation Mood: Depressed Affect and affective range: decreased range, dysthymic,, irritable Thought Process: Illogical Thought Content: Illogical Speech: Normal volume, Regular rate and rhythm Intellectual Functioning: Average Suicidal Ideation: Suicidal Homicidal Ideation: Denies HI Impulse Control: Impaired Insight and Judgment: Impaired Memory: Prospective memory impaired Attention: Distractible Orientation: Alert, oriented, anxious Diagnoses: Assessment and Plan - Psychiatric problem (1) Bipolar 2 disorder, major depressive episode Current Visit: Yes Status: Acute Treatment Plan Treatment Plan Patient will be admitted for inpatient psychiatric evaluation, medication adjustment and close monitoring The patient's behavior, mood, sleep and appetite will be closely monitored. Patient will be enrolled in individual and group therapeutic sessions and encouraged to attend. Patient will be provided with a safe and structured environment. Patient's physical health needs will be addressed by the Hospitalist. Hospitalist Consulted Labs including CBC, CMP, Lipid profile and Hemoglobin A1C ordered Social Assessment will be completed and the Master Craftsman will work with patient and family to ensure a suitable and safe disposition Medication adjustment will be made as clinically indicated Usual Wellness Sabianist/Preservation: - Start Trazodone 50 mg po QHS & 50 mg po QHS PRN between 10 PM & 2 AM for insomnia - Start Melatonin 5 mg po QHS to promote circadian rhythm - Start [place]-3 for brain health, reduce impulsivity, and as adjunctive treatment for mood disorder, continue upon discharge given overall benefits. - Start B1 prophylaxis with 200 mg po for 5 days The patient agreed on the treatment plan, understood the risk, benefit, alternative treatment, potential consequence of no treatment, and gave informed consent. Initial Certification Inpatient psych services: I certify that the inpatient psychiatric services are required for treatment that could reasonably be expected to improve the patient's condition. Estimated days: 7 Post hospital care: primary care provider, psychiatric provider Legal Status: Voluntary Patient Problems: Current Active Problems Bipolar 2 disorder, major depressive episode (Acute) Suicidal ideation (Acute) Reaction to Hospitalization: Accepting Medications and Allergies Allergies Allergy/AdvReac Type Severity Reaction Status Date / Time No Known Allergies Allergy Verified 03/19/20 19:21 Home Medications Medication Instructions Recorded Confirmed Last Taken Type LORazepam [Ativan] 1 mg PO TID 08/27/18 01/29/20 08/27/18 History Doxepin [SINEquan] 10 mg PO QHS #30 capsule 09/10/19 01/29/20 Unknown Rx Escitalopram [Lexapro] 5 mg PO QDAY #30 tablet 09/10/19 01/29/20 Unknown Rx Gabapentin [Neurontin] 800 mg PO TID #90 09/10/19 01/29/20 Unknown Rx Melatonin [Melatonin 5MG TAB] 5 mg PO QHS PRN #30 tablet 09/10/19 01/29/20 Unknown Rx Nystatin [Nystop Powder] 1 applic TP BID powder 09/10/19 01/29/20 Unknown Rx Assessment and Plan - Psychiatric problem (1) Bipolar 2 disorder, major depressive episode Status: Acute Physician Certification - Certification Statement Physician Certification Statement: This is an acknowledgement statement that ANU LANDRY is a 55 year old F who requires inpatient psychiatric admission for treatment which could reasonably be expected to improve the patient's condition for Estimated period of time patient will need to remain in the hospital: [ ] Plan for post-hospital care: [ ]
[2020-03-20] MEDS: traZODone 50 MG TAB PO SCH (22:19)
[2020-03-20] MEDS: OMEGA-3 FATTY ACIDS/FISH OIL 1 GRAM CAP PO SCH (22:19)
[2020-03-20] MEDS: GABAPENTIN 400 MG CAP PO SCH (22:20)
[2020-03-20] MEDS: LORazepam 1 MG TAB PO SCH (22:20)
--- NOTE | 2020-03-21 08:19 | Progress Note ---
Subjective Date of service: 03/21/20 Principal diagnosis: Bipolar Disorder Subjective Comment: The patient's medical record was reviewed and the patient's progress was discussed with the nursing staff. The nurse note states the patient denies HI and AVH. pt states she is still having suicidal thoughts but she has no plan. During my interview with the patient today, she is sitting in the dayroom. She is a/o x 3. The patient appears slightly anxious. She is fidgety. She describes her mood as "alright." The patient says she "feels suicidal." She denies having a plan. The patient denies hallucinations. REVIEW OF SYSTEMS Constitutional: Negative for weight loss ENT: Negative for stridor Respiratory: Negative for cough or hemoptysis All other systems reviewed and are negative MENTAL STATUS EXAMINATION General Appearance; Dressed appropriately Behavior: Calm and cooperative. Fair eye contact Mood: alright Affect and affective range: congruent with stated mood Thought Process: Fluent/Logical Thought Content: within reality Speech: Normal volume, Regular rate and rhythm Suicidal Ideation: Yes Homicidal Ideation: Denies Hallucinations: Denies Delusions: None elicited Insight and Judgment: Limited Memory/Cognition: Normal Attention: Normal Orientation: Alert, oriented Assessment (1)Bipolar Disorder, Severe, Current Episode Depressed Current Visit: Yes Status: Acute Treatment Plan Patient will be admitted for inpatient psychiatric evaluation, medication adjustment and close monitoring The patient's behavior, mood, sleep and appetite will be closely monitored. Patient will be enrolled in individual and group therapeutic sessions and encouraged to attend. Patient will be provided with a safe and structured environment. Patient's physical health needs will be addressed by the Hospitalist. Hospitalist Consulted Labs including CBC, CMP, Lipid profile and Hemoglobin A1C ordered Social Assessment will be completed and the Grader Meat will work with patient and family to ensure a suitable and safe disposition Medication adjustment will be made as clinically indicated Start Zoloft 25mg po daily Start Abilify 5mg po daily Usual Wellness Shinto/Preservation: - Start Trazodone 50 mg po QHS & 50 mg po QHS PRN between 10 PM & 2 AM for insomnia - Start Melatonin 5 mg po QHS to promote circadian rhythm - Start [place]-3 for brain health, reduce impulsivity, and as adjunctive treatment for mood disorder, continue upon discharge given overall benefits. The patient agreed on the treatment plan, understood the risk, benefit, alternative treatment, potential consequence of no treatment, and gave informed consent. Estimated days: 6 Post hospital care: primary care provider, psychiatric provider Medications and Allergies Allergies Allergy/AdvReac Type Severity Reaction Status Date / Time No Known Allergies Allergy Verified 03/19/20 19:21 Home Medications Medication Instructions Recorded Confirmed Last Taken Type LORazepam [Ativan] 1 mg PO TID 08/27/18 03/20/20 08/27/18 History Melatonin [Melatonin 5MG TAB] 5 mg PO QHS PRN #30 tablet 09/10/19 03/20/20 Unknown Rx Gabapentin [Neurontin] 800 mg PO QID 03/20/20 03/20/20 Unknown History Active Meds: Active Medications Fish Oil (Fish Oil) 2,000 mg PO BID [facility] Last Admin: 03/20/20 22:19 Dose: 2,000 mg Documented by: Gabapentin (Gabapentin) 800 mg PO QID [facility] Last Admin: 03/20/20 22:20 Dose: 800 mg Documented by: Lorazepam (Ativan) 1 mg PO TID [facility] Last Admin: 03/20/20 22:20 Dose: 1 mg Documented by: Melatonin (Melatonin) 5 mg PO QHS PRN PRN Reason: Sleep Last Admin: 03/20/20 22:20 Dose: 5 mg Documented by: Trazodone HCl (Desyrel) 50 mg PO QHS [facility] Last Admin: 03/20/20 22:19 Dose: 50 mg Documented by: Results - Results Labs/Vitals: Laboratory Last Values POC Glucose 85 (70-105) 03/21/20 07:47 Last Vital Signs Temp 98.6 F 03/21/20 07:41 Pulse 82 03/21/20 07:41 Resp 18 03/21/20 07:41 BP 118/81 03/21/20 07:41 Pulse Ox 97 03/21/20 07:41
[2020-03-21] MEDS: LORazepam 1 MG TAB PO SCH ×3 (08:45→20:50)
[2020-03-21] MEDS: SERTRALINE 25 MG TAB PO SCH (09:01)
[2020-03-21] MEDS: ARIPiprazole 5 MG TAB PO SCH (09:01)
[2020-03-21] MEDS: GABAPENTIN 400 MG CAP PO SCH ×4 (09:01→21:08)
[2020-03-21] MEDS: OMEGA-3 FATTY ACIDS/FISH OIL 1 GRAM CAP PO SCH ×2 (09:05→21:08)
[2020-03-21 12:33] LABS: Basophils % (Auto) 0.6 % (0.0-1.8); Eosinophils # (Auto) 0.1 K/mm3 (0.0-0.4); Eosinophils % (Auto) 1.5 % (0.0-4.3); Hemoglobin 13.4 gm/dl (10.1-14.3); Lymphocytes # (Auto) 2.2 K/mm3 (1.2-5.4); Lymphocytes % (Auto) 29.7 % (13.4-35.0); Mean Corpuscular HGB Conc 34 % (30-34); Mean Corpuscular Volume 100 fl (79-97); Monocytes # (Auto) 0.4 K/mm3 (0.0-0.8); Monocytes % (Auto) 4.7 % (0.0-7.3); Platelet Count 287 K/mm3 (140-440); Red Cell Distribution Width 14.3 % (13.2-15.2)
[2020-03-21 12:49] LABS: Alanine Aminotransferase 31 units/L (7-56); Albumin 4.4 g/dL (3.9-5); BUN/Creatinine Ratio 19; Blood Urea Nitrogen 15 mg/dL (7-17); Calcium 9.2 mg/dL (8.4-10.2); HDL Cholesterol 39 mg/dL (40-59); LDL Cholesterol,Direct 156 mg/dL (50-130)
[2020-03-21 12:50] LABS: Chol/HDL Ratio 5.41 %; Hemolysis Index 6
--- NOTE | 2020-03-21 14:45 | Consultation ---
History of Present Illness - Reason for Consult Consult date: 03/21/20 Medical management - History of Present Illness Patient not able to volunteer any history during my encounter As per psych team Patient is a 55 year old single, unemployed currently on disability 55 year old female who resides in a transitional home with past psychiatric history of depression and panic attacks presents to the ED with chief complaint of suicidal ideation. Patient reports: Now 1 from a transitional living facility after sister having suicidal thoughts and she does not know why. She reports feeling severely depressed with unknown specific trigger, denies hearing voices, she reports sleeping pretty good denies no changes in appetite but endorses decreased interest and motivation to do anything at all. Patient reports she wishes that she knows why she is depressed that she would not be here. Patient appears restless, impulsive and constantly moving Medications and Allergies Allergies Allergy/AdvReac Type Severity Reaction Status Date / Time No Known Allergies Allergy Verified 03/19/20 19:21 Home Medications Medication Instructions Recorded Confirmed Last Taken Type LORazepam [Ativan] 1 mg PO TID 08/27/18 03/20/20 08/27/18 History Melatonin [Melatonin 5MG TAB] 5 mg PO QHS PRN #30 tablet 09/10/19 03/20/20 Unknown Rx Gabapentin [Neurontin] 800 mg PO QID 03/20/20 03/20/20 Unknown History Active Meds: Active Medications Aripiprazole (Aripiprazole) 5 mg PO QDAY [facility] Last Admin: 03/21/20 09:01 Dose: 5 mg Documented by: Fish Oil (Fish Oil) 2,000 mg PO BID [facility] Last Admin: 03/21/20 09:05 Dose: Not Given Documented by: Gabapentin (Gabapentin) 800 mg PO QID [facility] Last Admin: 03/21/20 13:32 Dose: 800 mg Documented by: Lorazepam (Ativan) 1 mg PO TID [facility] Last Admin: 03/21/20 13:32 Dose: 1 mg Documented by: Melatonin (Melatonin) 5 mg PO QHS PRN PRN Reason: Sleep Last Admin: 03/20/20 22:20 Dose: 5 mg Documented by: Sertraline HCl (Zoloft) 25 mg PO QDAY [facility] Last Admin: 03/21/20 09:01 Dose: 25 mg Documented by: Trazodone HCl (Desyrel) 50 mg PO QHS [facility] Last Admin: 03/20/20 22:19 Dose: 50 mg Documented by: Review of Systems All systems: negative Exam - Physical Exam Narrative exam: Refused physical exam - Constitutional Vitals: Temp Pulse Resp BP Pulse Ox 98.6 F 82 18 118/81 97 03/21/20 07:41 03/21/20 07:41 03/21/20 07:41 03/21/20 07:41 03/21/20 07:41 - Neurologic Neurologic: moves all extremities Results - Labs CBC & Chem 7: 03/21/20 12:06 03/21/20 12:06 Labs: Abnormal lab results 03/21/20 03/21/20 Range/Units 12:06 12:06 MCV 100 H (79-97) fl MCH 34 H (28-32) pg Glucose 101 H (65-100) mg/dL Triglycerides 216 H (2-149) mg/dL Cholesterol 211 H (50-199) mg/dL LDL Cholesterol Direct 156 H (50-130) mg/dL HDL Cholesterol 39 L (40-59) mg/dL Assessment and Plan 55 year old F with a medical history of depression and panic attacks here with suicidal ideation. Medical team has been consulted for medical management and evaluation of reported rash Patient refused exam today. Will try at a later time Thank you for the consult
[2020-03-21] MEDS: traZODone 50 MG TAB PO SCH ×2 (21:08→21:11)
--- NOTE | 2020-03-22 08:17 | Progress Note ---
Subjective Date of service: 03/22/20 Principal diagnosis: Bipolar Disorder Subjective Comment: The patient's medical record was reviewed and the patient's progress was discussed with the nursing staff. During my interview with the patient today, she is in bed asleep. She easily arouses. She is oriented x 3. She describes her mood as "light depression." She still verbalizes suicidal thoughts that "comes and goes." She denies hallucinations of any kind. Reason for continued inpatient treatment: The patient continues to have depression, with suicidal thoughts on and off. Will continue to treat and stabilize. REVIEW OF SYSTEMS Constitutional: Negative for weight loss ENT: Negative for stridor Respiratory: Negative for cough or hemoptysis All other systems reviewed and are negative MENTAL STATUS EXAMINATION General Appearance; Dressed appropriately Behavior: Calm and cooperative. Fair eye contact Mood: "light depression" Affect and affective range: congruent with stated mood Thought Process: Fluent/Logical Thought Content: within reality Speech: Normal volume, Regular rate and rhythm Suicidal Ideation: Yes, comes and goes Homicidal Ideation: Denies Hallucinations: Denies Delusions: None elicited Insight and Judgment: Limited Memory/Cognition: Normal Attention: Normal Orientation: Alert, oriented Assessment (1)Bipolar Disorder, Severe, Current Episode Depressed Current Visit: Yes Status: Acute Treatment Plan Patient will be admitted for inpatient psychiatric evaluation, medication adjustment and close monitoring The patient's behavior, mood, sleep and appetite will be closely monitored. Patient will be enrolled in individual and group therapeutic sessions and encouraged to attend. Patient will be provided with a safe and structured environment. Patient's physical health needs will be addressed by the Hospitalist. Hospitalist Consulted Labs including CBC, CMP, Lipid profile and Hemoglobin A1C ordered Social Assessment will be completed and the Head Sugar Reprocess Operator will work with patient and family to ensure a suitable and safe disposition Medication adjustment will be made as clinically indicated Start Zoloft 25mg po daily yesterday Start Abilify 5mg po daily yesterday No changes today Usual Wellness Congregational/Preservation: - Start Trazodone 50 mg po QHS & 50 mg po QHS PRN between 10 PM & 2 AM for insomnia - Start Melatonin 5 mg po QHS to promote circadian rhythm - Start [place]-3 for brain health, reduce impulsivity, and as adjunctive treatment for mood disorder, continue upon discharge given overall benefits. The patient agreed on the treatment plan, understood the risk, benefit, alternative treatment, potential consequence of no treatment, and gave informed consent. Estimated days: 5 Post hospital care: primary care provider, psychiatric provider Medications and Allergies Allergies Allergy/AdvReac Type Severity Reaction Status Date / Time No Known Allergies Allergy Verified 03/19/20 19:21 Home Medications Medication Instructions Recorded Confirmed Last Taken Type LORazepam [Ativan] 1 mg PO TID 08/27/18 03/20/20 08/27/18 History Melatonin [Melatonin 5MG TAB] 5 mg PO QHS PRN #30 tablet 09/10/19 03/20/20 Unknown Rx Gabapentin [Neurontin] 800 mg PO QID 03/20/20 03/20/20 Unknown History Active Meds: Active Medications Aripiprazole (Aripiprazole) 5 mg PO QDAY [facility] Last Admin: 03/21/20 09:01 Dose: 5 mg Documented by: Fish Oil (Fish Oil) 2,000 mg PO BID [facility] Last Admin: 03/21/20 21:08 Dose: 2,000 mg Documented by: Gabapentin (Gabapentin) 800 mg PO QID [facility] Last Admin: 03/21/20 21:08 Dose: 800 mg Documented by: Lorazepam (Ativan) 1 mg PO TID [facility] Last Admin: 03/21/20 20:50 Dose: 1 mg Documented by: Melatonin (Melatonin) 5 mg PO QHS PRN PRN Reason: Sleep Last Admin: 03/20/20 22:20 Dose: 5 mg Documented by: Sertraline HCl (Zoloft) 25 mg PO QDAY [facility] Last Admin: 03/21/20 09:01 Dose: 25 mg Documented by: Trazodone HCl (Desyrel) 50 mg PO QHS [facility] Last Admin: 03/21/20 21:11 Dose: Not Given Documented by: Results - Results Labs/Vitals: Laboratory Last Values WBC 7.5 K/mm3 (4.5-11.0) 03/21/20 12:06 RBC 4.00 M/mm3 (3.65-5.03) 03/21/20 12:06 Hgb 13.4 gm/dl (10.1-14.3) 03/21/20 12:06 Hct 40.0 % (30.3-42.9) 03/21/20 12:06 MCV 100 fl (79-97) H 03/21/20 12:06 MCH 34 pg (28-32) H 03/21/20 12:06 MCHC 34 % (30-34) 03/21/20 12:06 RDW 14.3 % (13.2-15.2) 03/21/20 12:06 Plt Count 287 K/mm3 (140-440) 03/21/20 12:06 Lymph % (Auto) 29.7 % (13.4-35.0) 03/21/20 12:06 Winn % (Auto) 4.7 % (0.0-7.3) 03/21/20 12:06 Eos % (Auto) 1.5 % (0.0-4.3) 03/21/20 12:06 Baso % (Auto) 0.6 % (0.0-1.8) 03/21/20 12:06 Lymph # 2.2 K/mm3 (1.2-5.4) 03/21/20 12:06 Winn # 0.4 K/mm3 (0.0-0.8) 03/21/20 12:06 Eos # 0.1 K/mm3 (0.0-0.4) 03/21/20 12:06 Baso # 0.0 K/mm3 (0.0-0.1) 03/21/20 12:06 Seg Neutrophils % 63.5 % (40.0-70.0) 03/21/20 12:06 Seg Neutrophils # 4.8 K/mm3 (1.8-7.7) 03/21/20 12:06 Sodium 139 mmol/L (137-145) 03/21/20 12:06 Potassium 4.4 mmol/L (3.6-5.0) 03/21/20 12:06 Chloride 101.2 mmol/L (98-107) 03/21/20 12:06 Carbon Dioxide 26 mmol/L (22-30) 03/21/20 12:06 Anion Gap 16 mmol/L 03/21/20 12:06 BUN 15 mg/dL (7-17) 03/21/20 12:06 Creatinine 0.8 mg/dL (0.6-1.2) 03/21/20 12:06 Estimated GFR > 60 ml/min 03/21/20 12:06 BUN/Creatinine Ratio 19 % 03/21/20 12:06 Glucose 101 mg/dL (65-100) H 03/21/20 12:06 POC Glucose 84 (70-105) 03/21/20 11:54 Hemoglobin A1c 5.5 % (4-6) 03/21/20 12:06 Calcium 9.2 mg/dL (8.4-10.2) 03/21/20 12:06 Total Bilirubin 0.40 mg/dL (0.1-1.2) 03/21/20 12:06 AST 24 units/L (5-40) 03/21/20 12:06 ALT 31 units/L (7-56) 03/21/20 12:06 Alkaline Phosphatase 81 units/L (35-129) 03/21/20 12:06 Total Protein 7.2 g/dL (6.3-8.2) 03/21/20 12:06 Albumin 4.4 g/dL (3.9-5) 03/21/20 12:06 Albumin/Globulin Ratio 1.6 % 03/21/20 12:06 Triglycerides 216 mg/dL (2-149) H 03/21/20 12:06 Cholesterol 211 mg/dL (50-199) H 03/21/20 12:06 LDL Cholesterol Direct 156 mg/dL (50-130) H 03/21/20 12:06 HDL Cholesterol 39 mg/dL (40-59) L 03/21/20 12:06 Cholesterol/HDL Ratio 5.41 % 03/21/20 12:06 TSH 1.140 mlU/mL (0.270-4.200) 03/21/20 12:06 Last Vital Signs Temp 99.0 F 03/21/20 19:24 Pulse 79 03/21/20 19:24 Resp 18 03/21/20 19:24 BP 106/56 03/21/20 19:24 Pulse Ox 96 03/21/20 19:24
[2020-03-22] MEDS: OMEGA-3 FATTY ACIDS/FISH OIL 1 GRAM CAP PO SCH ×2 (10:00→21:22)
[2020-03-22] MEDS: GABAPENTIN 400 MG CAP PO SCH ×4 (10:00→21:22)
[2020-03-22] MEDS: ARIPiprazole 5 MG TAB PO SCH (10:00)
[2020-03-22] MEDS: SERTRALINE 25 MG TAB PO SCH (10:00)
[2020-03-22] MEDS: LORazepam 1 MG TAB PO SCH ×3 (10:00→20:53)
[2020-03-22] MEDS: traZODone 50 MG TAB PO SCH (21:22)
[2020-03-23] MEDS: SERTRALINE 25 MG TAB PO SCH (09:18)
[2020-03-23] MEDS: OMEGA-3 FATTY ACIDS/FISH OIL 1 GRAM CAP PO SCH ×2 (09:18→21:10)
[2020-03-23] MEDS: ARIPiprazole 5 MG TAB PO SCH (09:18)
[2020-03-23] MEDS: GABAPENTIN 400 MG CAP PO SCH ×4 (09:18→21:10)
[2020-03-23] MEDS: LORazepam 1 MG TAB PO SCH ×3 (09:18→20:45)
--- NOTE | 2020-03-23 09:24 | Progress Note ---
Subjective Date of service: 03/23/20 Principal diagnosis: Bipolar Disorder Subjective Comment: The patient's medical record was reviewed and the patient's progress was discussed with the nursing staff. During my interview with the patient today, she is walking down the [place]. She is disheveled. She is a/o x 3. She says she feels "great." She initially denies SI/HI or hallucinations of any kind, but then states, "I am just a little, not hallucinating but feeling suicidal." Reason for continued inpatient treatment: The patient continues to verbalize suicidal thoughts on and off. Will continue to treat and stabilize. REVIEW OF SYSTEMS Constitutional: Negative for weight loss ENT: Negative for stridor Respiratory: Negative for cough or hemoptysis All other systems reviewed and are negative MENTAL STATUS EXAMINATION General Appearance; Dressed appropriately Behavior: Calm and cooperative. Fair eye contact Mood: "great" Affect and affective range: incongruent with stated mood Thought Process: Fluent/Logical Thought Content: within reality Speech: Normal volume, Regular rate and rhythm Suicidal Ideation: Yes, comes and goes Homicidal Ideation: Denies Hallucinations: Denies Delusions: None elicited Insight and Judgment: Limited Memory/Cognition: Normal Attention: Normal Orientation: Alert, oriented Assessment (1)Bipolar Disorder, Severe, Current Episode Depressed Current Visit: Yes Status: Acute Treatment Plan Patient will be admitted for inpatient psychiatric evaluation, medication adjustment and close monitoring The patient's behavior, mood, sleep and appetite will be closely monitored. Patient will be enrolled in individual and group therapeutic sessions and encouraged to attend. Patient will be provided with a safe and structured environment. Patient's physical health needs will be addressed by the Hospitalist. Hospitalist Consulted Labs including CBC, CMP, Lipid profile and Hemoglobin A1C ordered Social Assessment will be completed and the Adult Basic Education Instructor will work with patient and family to ensure a suitable and safe disposition Medication adjustment will be made as clinically indicated Increased Zoloft 50mg po daily Usual Wellness [facility]/Preservation: - Start Trazodone 50 mg po QHS & 50 mg po QHS PRN between 10 PM & 2 AM for insomnia - Start Melatonin 5 mg po QHS to promote circadian rhythm - Start [place]-3 for brain health, reduce impulsivity, and as adjunctive treatment for mood disorder, continue upon discharge given overall benefits. The patient agreed on the treatment plan, understood the risk, benefit, alternative treatment, potential consequence of no treatment, and gave informed consent. Estimated days: 3 Post hospital care: primary care provider, psychiatric provider Medications and Allergies Allergies Allergy/AdvReac Type Severity Reaction Status Date / Time No Known Allergies Allergy Verified 03/19/20 19:21 Home Medications Medication Instructions Recorded Confirmed Last Taken Type LORazepam [Ativan] 1 mg PO TID 08/27/18 03/20/20 08/27/18 History Melatonin [Melatonin 5MG TAB] 5 mg PO QHS PRN #30 tablet 09/10/19 03/20/20 Unknown Rx Gabapentin [Neurontin] 800 mg PO QID 03/20/20 03/20/20 Unknown History Active Meds: Active Medications Aripiprazole (Aripiprazole) 5 mg PO QDAY [facility] Last Admin: 03/23/20 09:18 Dose: 5 mg Documented by: Fish Oil (Fish Oil) 2,000 mg PO BID [facility] Last Admin: 03/23/20 09:18 Dose: 2,000 mg Documented by: Gabapentin (Gabapentin) 800 mg PO QID [facility] Last Admin: 03/23/20 09:18 Dose: 800 mg Documented by: Lorazepam (Ativan) 1 mg PO TID [facility] Last Admin: 03/23/20 09:18 Dose: 1 mg Documented by: Melatonin (Melatonin) 5 mg PO QHS PRN PRN Reason: Sleep Last Admin: 03/20/20 22:20 Dose: 5 mg Documented by: Sertraline HCl (Zoloft) 25 mg PO QDAY [facility] Last Admin: 03/23/20 09:18 Dose: 25 mg Documented by: Trazodone HCl (Desyrel) 50 mg PO QHS [facility] Last Admin: 03/22/20 21:22 Dose: Not Given Documented by: Results - Results Labs/Vitals: Laboratory Last Values WBC 7.5 K/mm3 (4.5-11.0) 03/21/20 12:06 RBC 4.00 M/mm3 (3.65-5.03) 03/21/20 12:06 Hgb 13.4 gm/dl (10.1-14.3) 03/21/20 12:06 Hct 40.0 % (30.3-42.9) 03/21/20 12:06 MCV 100 fl (79-97) H 03/21/20 12:06 MCH 34 pg (28-32) H 03/21/20 12:06 MCHC 34 % (30-34) 03/21/20 12:06 RDW 14.3 % (13.2-15.2) 03/21/20 12:06 Plt Count 287 K/mm3 (140-440) 03/21/20 12:06 Lymph % (Auto) 29.7 % (13.4-35.0) 03/21/20 12:06 [place] % (Auto) 4.7 % (0.0-7.3) 03/21/20 12:06 Eos % (Auto) 1.5 % (0.0-4.3) 03/21/20 12:06 Baso % (Auto) 0.6 % (0.0-1.8) 03/21/20 12:06 Lymph # 2.2 K/mm3 (1.2-5.4) 03/21/20 12:06 [place] # 0.4 K/mm3 (0.0-0.8) 03/21/20 12:06 Eos # 0.1 K/mm3 (0.0-0.4) 03/21/20 12:06 Baso # 0.0 K/mm3 (0.0-0.1) 03/21/20 12:06 Seg Neutrophils % 63.5 % (40.0-70.0) 03/21/20 12:06 Seg Neutrophils # 4.8 K/mm3 (1.8-7.7) 03/21/20 12:06 Sodium 139 mmol/L (137-145) 03/21/20 12:06 Potassium 4.4 mmol/L (3.6-5.0) 03/21/20 12:06 Chloride 101.2 mmol/L (98-107) 03/21/20 12:06 Carbon Dioxide 26 mmol/L (22-30) 03/21/20 12:06 Anion Gap 16 mmol/L 03/21/20 12:06 BUN 15 mg/dL (7-17) 03/21/20 12:06 Creatinine 0.8 mg/dL (0.6-1.2) 03/21/20 12:06 Estimated GFR > 60 ml/min 03/21/20 12:06 BUN/Creatinine Ratio 19 % 03/21/20 12:06 Glucose 101 mg/dL (65-100) H 03/21/20 12:06 POC Glucose 84 (70-105) 03/21/20 11:54 Hemoglobin A1c 5.5 % (4-6) 03/21/20 12:06 Calcium 9.2 mg/dL (8.4-10.2) 03/21/20 12:06 Total Bilirubin 0.40 mg/dL (0.1-1.2) 03/21/20 12:06 AST 24 units/L (5-40) 03/21/20 12:06 ALT 31 units/L (7-56) 03/21/20 12:06 Alkaline Phosphatase 81 units/L (35-129) 03/21/20 12:06 Total Protein 7.2 g/dL (6.3-8.2) 03/21/20 12:06 Albumin 4.4 g/dL (3.9-5) 03/21/20 12:06 Albumin/Globulin Ratio 1.6 % 03/21/20 12:06 Triglycerides 216 mg/dL (2-149) H 03/21/20 12:06 Cholesterol 211 mg/dL (50-199) H 03/21/20 12:06 LDL Cholesterol Direct 156 mg/dL (50-130) H 03/21/20 12:06 HDL Cholesterol 39 mg/dL (40-59) L 03/21/20 12:06 Cholesterol/HDL Ratio 5.41 % 03/21/20 12:06 TSH 1.140 mlU/mL (0.270-4.200) 03/21/20 12:06 Last Vital Signs Temp 98.5 F 03/22/20 22:00 Pulse 81 03/22/20 22:00 Resp 18 03/22/20 22:00 BP 126/81 03/22/20 22:00 Pulse Ox 94 03/22/20 22:00
[2020-03-23] MEDS: SERTRALINE 50 MG TAB PO SCH (13:28)
[2020-03-23] MEDS: traZODone 50 MG TAB PO SCH (21:11)
[2020-03-24] MEDS: LORazepam 1 MG TAB PO SCH ×3 (08:10→20:41)
--- NOTE | 2020-03-24 09:54 | Progress Note ---
Subjective Date of service: 03/24/20 Principal diagnosis: Bipolar Disorder Subjective Comment: The patient's medical record was reviewed and the patient's progress was discussed with the nursing staff. The nursing staff states the patient has been hyperverbal, easily irritable, and has poor insight. They also say the patient has been pacing, having outbursts and throwing objects. During my interview with the patient today, she is in the dayroom. The patient's hair is disheveled. She describes her mood as "good." She denies hallucinations of any kind. She also denies SI/HI at the moment, but states, "sometimes but not right now." When asking the patient about her behaviors witnessed by the nurse, she sates "I don't really remember that." Reason for continued inpatient treatment: The patient continues to verbalize suicidal thoughts on and off, and have episodic mood swings. Will continue to treat and stabilize. REVIEW OF SYSTEMS Constitutional: Negative for weight loss ENT: Negative for stridor Respiratory: Negative for cough or hemoptysis All other systems reviewed and are negative MENTAL STATUS EXAMINATION General Appearance; Dressed appropriately Behavior: Calm and cooperative. Fair eye contact Mood: "good" Affect and affective range: incongruent with stated mood, restricted Thought Process: Fluent/Logical Thought Content: within reality Speech: Normal volume, Regular rate and rhythm Suicidal Ideation: "sometimes" Homicidal Ideation: Denies Hallucinations: Denies Delusions: None elicited Insight and Judgment: Limited Memory/Cognition: Normal Attention: Normal Orientation: Alert, oriented Assessment (1)Bipolar Disorder, Severe, Current Episode Depressed Current Visit: Yes Status: Acute Treatment Plan Patient will be admitted for inpatient psychiatric evaluation, medication adjustment and close monitoring The patient's behavior, mood, sleep and appetite will be closely monitored. Patient will be enrolled in individual and group therapeutic sessions and encouraged to attend. Patient will be provided with a safe and structured environment. Patient's physical health needs will be addressed by the Hospitalist. Hospitalist Consulted Labs including CBC, CMP, Lipid profile and Hemoglobin A1C ordered Social Assessment will be completed and the Posting Specialist will work with patient and family to ensure a suitable and safe disposition Medication adjustment will be made as clinically indicated Increased Abilify 10mg po daily Start Depakote DR 125mg po BID Usual Wellness [facility]/Preservation: - Start Trazodone 50 mg po QHS & 50 mg po QHS PRN between 10 PM & 2 AM for insomnia - Start Melatonin 5 mg po QHS to promote circadian rhythm - Start [place]-3 for brain health, reduce impulsivity, and as adjunctive treatment for mood disorder, continue upon discharge given overall benefits. The patient agreed on the treatment plan, understood the risk, benefit, alternative treatment, potential consequence of no treatment, and gave informed consent. Estimated days: 3 Post hospital care: primary care provider, psychiatric provider Medications and Allergies Allergies Allergy/AdvReac Type Severity Reaction Status Date / Time No Known Allergies Allergy Verified 03/19/20 19:21 Home Medications Medication Instructions Recorded Confirmed Last Taken Type LORazepam [Ativan] 1 mg PO TID 08/27/18 03/20/20 08/27/18 History Melatonin [Melatonin 5MG TAB] 5 mg PO QHS PRN #30 tablet 09/10/19 03/20/20 Unknown Rx Gabapentin [Neurontin] 800 mg PO QID 03/20/20 03/20/20 Unknown History Active Meds: Active Medications Aripiprazole (Aripiprazole) 5 mg PO QDAY [facility] Last Admin: 03/23/20 09:18 Dose: 5 mg Documented by: Fish Oil (Fish Oil) 2,000 mg PO BID [facility] Last Admin: 03/23/20 21:10 Dose: 2,000 mg Documented by: Gabapentin (Gabapentin) 800 mg PO QID [facility] Last Admin: 03/23/20 21:10 Dose: 800 mg Documented by: Lorazepam (Ativan) 1 mg PO TID [facility] Last Admin: 03/24/20 08:10 Dose: 1 mg Documented by: Melatonin (Melatonin) 5 mg PO QHS PRN PRN Reason: Sleep Last Admin: 03/20/20 22:20 Dose: 5 mg Documented by: Sertraline HCl (Zoloft) 50 mg PO QDAY [facility] Last Admin: 03/23/20 13:28 Dose: 50 mg Documented by: Trazodone HCl (Desyrel) 50 mg PO QHS [facility] Last Admin: 03/23/20 21:11 Dose: Not Given Documented by: Results - Results Labs/Vitals: Laboratory Last Values WBC 7.5 K/mm3 (4.5-11.0) 03/21/20 12:06 RBC 4.00 M/mm3 (3.65-5.03) 03/21/20 12:06 Hgb 13.4 gm/dl (10.1-14.3) 03/21/20 12:06 Hct 40.0 % (30.3-42.9) 03/21/20 12:06 MCV 100 fl (79-97) H 03/21/20 12:06 MCH 34 pg (28-32) H 03/21/20 12:06 MCHC 34 % (30-34) 03/21/20 12:06 RDW 14.3 % (13.2-15.2) 03/21/20 12:06 Plt Count 287 K/mm3 (140-440) 03/21/20 12:06 Lymph % (Auto) 29.7 % (13.4-35.0) 03/21/20 12:06 [place] % (Auto) 4.7 % (0.0-7.3) 03/21/20 12:06 Eos % (Auto) 1.5 % (0.0-4.3) 03/21/20 12:06 Baso % (Auto) 0.6 % (0.0-1.8) 03/21/20 12:06 Lymph # 2.2 K/mm3 (1.2-5.4) 03/21/20 12:06 [place] # 0.4 K/mm3 (0.0-0.8) 03/21/20 12:06 Eos # 0.1 K/mm3 (0.0-0.4) 03/21/20 12:06 Baso # 0.0 K/mm3 (0.0-0.1) 03/21/20 12:06 Seg Neutrophils % 63.5 % (40.0-70.0) 03/21/20 12:06 Seg Neutrophils # 4.8 K/mm3 (1.8-7.7) 03/21/20 12:06 Sodium 139 mmol/L (137-145) 03/21/20 12:06 Potassium 4.4 mmol/L (3.6-5.0) 03/21/20 12:06 Chloride 101.2 mmol/L (98-107) 03/21/20 12:06 Carbon Dioxide 26 mmol/L (22-30) 03/21/20 12:06 Anion Gap 16 mmol/L 03/21/20 12:06 BUN 15 mg/dL (7-17) 03/21/20 12:06 Creatinine 0.8 mg/dL (0.6-1.2) 03/21/20 12:06 Estimated GFR > 60 ml/min 03/21/20 12:06 BUN/Creatinine Ratio 19 % 03/21/20 12:06 Glucose 101 mg/dL (65-100) H 03/21/20 12:06 POC Glucose 84 (70-105) 03/21/20 11:54 Hemoglobin A1c 5.5 % (4-6) 03/21/20 12:06 Calcium 9.2 mg/dL (8.4-10.2) 03/21/20 12:06 Total Bilirubin 0.40 mg/dL (0.1-1.2) 03/21/20 12:06 AST 24 units/L (5-40) 03/21/20 12:06 ALT 31 units/L (7-56) 03/21/20 12:06 Alkaline Phosphatase 81 units/L (35-129) 03/21/20 12:06 Total Protein 7.2 g/dL (6.3-8.2) 03/21/20 12:06 Albumin 4.4 g/dL (3.9-5) 03/21/20 12:06 Albumin/Globulin Ratio 1.6 % 03/21/20 12:06 Triglycerides 216 mg/dL (2-149) H 03/21/20 12:06 Cholesterol 211 mg/dL (50-199) H 03/21/20 12:06 LDL Cholesterol Direct 156 mg/dL (50-130) H 03/21/20 12:06 HDL Cholesterol 39 mg/dL (40-59) L 03/21/20 12:06 Cholesterol/HDL Ratio 5.41 % 03/21/20 12:06 TSH 1.140 mlU/mL (0.270-4.200) 03/21/20 12:06 Last Vital Signs Temp 99.2 F 03/23/20 19:48 Pulse 67 03/23/20 19:48 Resp 16 03/23/20 19:48 BP 126/53 03/23/20 19:48 Pulse Ox 98 03/23/20 20:29
[2020-03-24] MEDS: SERTRALINE 50 MG TAB PO SCH (10:15)
[2020-03-24] MEDS: GABAPENTIN 400 MG CAP PO SCH ×4 (10:15→21:22)
[2020-03-24] MEDS: OMEGA-3 FATTY ACIDS/FISH OIL 1 GRAM CAP PO SCH ×2 (10:15→21:22)
[2020-03-24] MEDS: DIVALPROEX DR 125 MG TAB PO SCH ×2 (10:15→21:22)
[2020-03-24] MEDS: ARIPiprazole 10 MG TAB PO SCH (10:15)
[2020-03-25] MEDS: LORazepam 1 MG TAB PO SCH ×3 (08:15→20:28)
--- NOTE | 2020-03-25 09:10 | Progress Note ---
Subjective Date of service: 03/25/20 Principal diagnosis: Bipolar Disorder Subjective Comment: The patient's medical record was reviewed and the patient's progress was discussed with the nursing staff. During my interview with the patient today, she is in the dayroom. She says she feels "okay." The patient denies hallucinations of any kind. When asked about her mood swings, she says "when, I don't remember that. That must have been the other day." The patient says she's "not experiencing self harm thoughts right now, but early this morning." Reason for continued inpatient treatment: The patient continues to verbalize suicidal thoughts on and off, and have episodic mood swings. Will continue to treat and stabilize. REVIEW OF SYSTEMS Constitutional: Negative for weight loss ENT: Negative for stridor Respiratory: Negative for cough or hemoptysis All other systems reviewed and are negative MENTAL STATUS EXAMINATION General Appearance; Dressed appropriately Behavior: Calm and cooperative. Fair eye contact Mood: "okay" Affect and affective range: congruent with stated mood, restricted Thought Process: Fluent/Logical Thought Content: within reality Speech: Normal volume, Regular rate and rhythm Suicidal Ideation: "not now but early this morning" Homicidal Ideation: Denies Hallucinations: Denies Delusions: None elicited Insight and Judgment: Limited Memory/Cognition: Normal Attention: Normal Orientation: Alert, oriented Assessment (1)Bipolar Disorder, Severe, Current Episode Depressed Current Visit: Yes Status: Acute Treatment Plan Patient will be admitted for inpatient psychiatric evaluation, medication adjustment and close monitoring The patient's behavior, mood, sleep and appetite will be closely monitored. Patient will be enrolled in individual and group therapeutic sessions and encouraged to attend. Patient will be provided with a safe and structured environment. Patient's physical health needs will be addressed by the Hospitalist. Hospitalist Consulted Labs including CBC, CMP, Lipid profile and Hemoglobin A1C ordered Social Assessment will be completed and the Machine Ironer will work with patient and family to ensure a suitable and safe disposition Medication adjustment will be made as clinically indicated Increased Abilify 10mg po daily yesterday Start Depakote DR 250mg po BID Usual Wellness [facility]/Preservation: - Start Trazodone 50 mg po QHS & 50 mg po QHS PRN between 10 PM & 2 AM for insomnia - Start Melatonin 5 mg po QHS to promote circadian rhythm - Start [place]-3 for brain health, reduce impulsivity, and as adjunctive treatment for mood disorder, continue upon discharge given overall benefits. The patient agreed on the treatment plan, understood the risk, benefit, alternative treatment, potential consequence of no treatment, and gave informed consent. Estimated days: 2 Post hospital care: primary care provider, psychiatric provider Medications and Allergies Allergies Allergy/AdvReac Type Severity Reaction Status Date / Time No Known Allergies Allergy Verified 03/19/20 19:21 Home Medications Medication Instructions Recorded Confirmed Last Taken Type LORazepam [Ativan] 1 mg PO TID 08/27/18 03/20/20 08/27/18 History Melatonin [Melatonin 5MG TAB] 5 mg PO QHS PRN #30 tablet 09/10/19 03/20/20 Unknown Rx Gabapentin [Neurontin] 800 mg PO QID 03/20/20 03/20/20 Unknown History Active Meds: Active Medications Aripiprazole (Aripiprazole) 10 mg PO QDAY [facility] Last Admin: 03/24/20 10:15 Dose: 10 mg Documented by: Divalproex Sodium (Depakote Dr) 125 mg PO BID [facility] Last Admin: 03/24/20 21:22 Dose: 125 mg Documented by: Fish Oil (Fish Oil) 2,000 mg PO BID [facility] Last Admin: 03/24/20 21:22 Dose: 2,000 mg Documented by: Gabapentin (Gabapentin) 800 mg PO QID [facility] Last Admin: 03/24/20 21:22 Dose: 800 mg Documented by: Lorazepam (Ativan) 1 mg PO TID [facility] Last Admin: 03/25/20 08:15 Dose: 1 mg Documented by: Melatonin (Melatonin) 5 mg PO QHS PRN PRN Reason: Sleep Last Admin: 03/20/20 22:20 Dose: 5 mg Documented by: Sertraline HCl (Zoloft) 50 mg PO QDAY [facility] Last Admin: 03/24/20 10:15 Dose: 50 mg Documented by: Results - Results Labs/Vitals: Laboratory Last Values WBC 7.5 K/mm3 (4.5-11.0) 03/21/20 12:06 RBC 4.00 M/mm3 (3.65-5.03) 03/21/20 12:06 Hgb 13.4 gm/dl (10.1-14.3) 03/21/20 12:06 Hct 40.0 % (30.3-42.9) 03/21/20 12:06 MCV 100 fl (79-97) H 03/21/20 12:06 MCH 34 pg (28-32) H 03/21/20 12:06 MCHC 34 % (30-34) 03/21/20 12:06 RDW 14.3 % (13.2-15.2) 03/21/20 12:06 Plt Count 287 K/mm3 (140-440) 03/21/20 12:06 Lymph % (Auto) 29.7 % (13.4-35.0) 03/21/20 12:06 [place] % (Auto) 4.7 % (0.0-7.3) 03/21/20 12:06 Eos % (Auto) 1.5 % (0.0-4.3) 03/21/20 12:06 Baso % (Auto) 0.6 % (0.0-1.8) 03/21/20 12:06 Lymph # 2.2 K/mm3 (1.2-5.4) 03/21/20 12:06 [place] # 0.4 K/mm3 (0.0-0.8) 03/21/20 12:06 Eos # 0.1 K/mm3 (0.0-0.4) 03/21/20 12:06 Baso # 0.0 K/mm3 (0.0-0.1) 03/21/20 12:06 Seg Neutrophils % 63.5 % (40.0-70.0) 03/21/20 12:06 Seg Neutrophils # 4.8 K/mm3 (1.8-7.7) 03/21/20 12:06 Sodium 139 mmol/L (137-145) 03/21/20 12:06 Potassium 4.4 mmol/L (3.6-5.0) 03/21/20 12:06 Chloride 101.2 mmol/L (98-107) 03/21/20 12:06 Carbon Dioxide 26 mmol/L (22-30) 03/21/20 12:06 Anion Gap 16 mmol/L 03/21/20 12:06 BUN 15 mg/dL (7-17) 03/21/20 12:06 Creatinine 0.8 mg/dL (0.6-1.2) 03/21/20 12:06 Estimated GFR > 60 ml/min 03/21/20 12:06 BUN/Creatinine Ratio 19 % 03/21/20 12:06 Glucose 101 mg/dL (65-100) H 03/21/20 12:06 POC Glucose 84 (70-105) 03/21/20 11:54 Hemoglobin A1c 5.5 % (4-6) 03/21/20 12:06 Calcium 9.2 mg/dL (8.4-10.2) 03/21/20 12:06 Total Bilirubin 0.40 mg/dL (0.1-1.2) 03/21/20 12:06 AST 24 units/L (5-40) 03/21/20 12:06 ALT 31 units/L (7-56) 03/21/20 12:06 Alkaline Phosphatase 81 units/L (35-129) 03/21/20 12:06 Total Protein 7.2 g/dL (6.3-8.2) 03/21/20 12:06 Albumin 4.4 g/dL (3.9-5) 03/21/20 12:06 Albumin/Globulin Ratio 1.6 % 03/21/20 12:06 Triglycerides 216 mg/dL (2-149) H 03/21/20 12:06 Cholesterol 211 mg/dL (50-199) H 03/21/20 12:06 LDL Cholesterol Direct 156 mg/dL (50-130) H 03/21/20 12:06 HDL Cholesterol 39 mg/dL (40-59) L 03/21/20 12:06 Cholesterol/HDL Ratio 5.41 % 03/21/20 12:06 TSH 1.140 mlU/mL (0.270-4.200) 03/21/20 12:06 Last Vital Signs Temp 98.3 F 03/24/20 19:15 Pulse 77 03/24/20 19:15 Resp 18 03/24/20 19:15 BP 124/60 03/24/20 19:15 Pulse Ox 97 03/24/20 19:15
[2020-03-25] MEDS: SERTRALINE 50 MG TAB PO SCH (09:37)
[2020-03-25] MEDS: GABAPENTIN 400 MG CAP PO SCH ×4 (09:37→21:25)
[2020-03-25] MEDS: ARIPiprazole 10 MG TAB PO SCH (09:38)
[2020-03-25] MEDS: DIVALPROEX DR 250 MG TAB PO SCH ×2 (09:38→21:25)
[2020-03-25] MEDS: OMEGA-3 FATTY ACIDS/FISH OIL 1 GRAM CAP PO SCH ×2 (09:38→21:24)
--- NOTE | 2020-03-26 09:15 | Progress Note ---
Subjective Date of service: 03/26/20 Principal diagnosis: Bipolar Disorder Subjective Comment: The patient's medical record was reviewed and the patient's progress was discussed with the nursing staff. During my interview with the patient today, she is in the dayroom. Her affect is bright and her mood seems a little heightened. She says she feels "great." The patient denies hallucinations of any kind. She also states, "I've been calm all night." The patient denies SI/HI. She says "they seem to be gone right now." Reason for continued inpatient treatment: The patient has improved significantly. Will continue to monitor overnight and plan for a safe discharge tomorrow if night uneventful. REVIEW OF SYSTEMS Constitutional: Negative for weight loss ENT: Negative for stridor Respiratory: Negative for cough or hemoptysis All other systems reviewed and are negative MENTAL STATUS EXAMINATION General Appearance; Dressed appropriately Behavior: Calm and cooperative. Fair eye contact Mood: "okay" Affect and affective range: congruent with stated mood, restricted Thought Process: Fluent/Logical Thought Content: within reality Speech: Normal volume, Regular rate and rhythm Suicidal Ideation: "not now but early this morning" Homicidal Ideation: Denies Hallucinations: Denies Delusions: None elicited Insight and Judgment: Limited Memory/Cognition: Normal Attention: Normal Orientation: Alert, oriented Assessment (1)Bipolar Disorder, Severe, Current Episode Depressed Current Visit: Yes Status: Acute Treatment Plan Patient will be admitted for inpatient psychiatric evaluation, medication adjustment and close monitoring The patient's behavior, mood, sleep and appetite will be closely monitored. Patient will be enrolled in individual and group therapeutic sessions and encouraged to attend. Patient will be provided with a safe and structured environment. Patient's physical health needs will be addressed by the Hospitalist. Hospitalist Consulted Labs including CBC, CMP, Lipid profile and Hemoglobin A1C ordered Social Assessment will be completed and the Weigher And Mixer will work with patient and family to ensure a suitable and safe disposition Medication adjustment will be made as clinically indicated Increase Depakote DR 250mg po BID yesterday No changes made today Usual Wellness Mandaeism/Preservation: - Start Trazodone 50 mg po QHS & 50 mg po QHS PRN between 10 PM & 2 AM for insomnia - Start Melatonin 5 mg po QHS to promote circadian rhythm - Start [place]-3 for brain health, reduce impulsivity, and as adjunctive treatment for mood disorder, continue upon discharge given overall benefits. The patient agreed on the treatment plan, understood the risk, benefit, alternative treatment, potential consequence of no treatment, and gave informed consent. Estimated days: 1 Post hospital care: primary care provider, psychiatric provider Medications and Allergies Allergies Allergy/AdvReac Type Severity Reaction Status Date / Time No Known Allergies Allergy Verified 03/19/20 19:21 Home Medications Medication Instructions Recorded Confirmed Last Taken Type LORazepam [Ativan] 1 mg PO TID 08/27/18 03/20/20 08/27/18 History Melatonin [Melatonin 5MG TAB] 5 mg PO QHS PRN #30 tablet 09/10/19 03/20/20 Unknown Rx Gabapentin [Neurontin] 800 mg PO QID 03/20/20 03/20/20 Unknown History Active Meds: Active Medications Aripiprazole (Aripiprazole) 10 mg PO QDAY [facility] Last Admin: 03/25/20 09:38 Dose: 10 mg Documented by: Divalproex Sodium (Depakote Dr) 250 mg PO BID [facility] Last Admin: 03/25/20 21:25 Dose: 250 mg Documented by: Fish Oil (Fish Oil) 2,000 mg PO BID [facility] Last Admin: 03/25/20 21:24 Dose: 2,000 mg Documented by: Gabapentin (Gabapentin) 800 mg PO QID [facility] Last Admin: 03/25/20 21:25 Dose: 800 mg Documented by: Lorazepam (Ativan) 1 mg PO TID [facility] Last Admin: 03/25/20 20:28 Dose: 1 mg Documented by: Melatonin (Melatonin) 5 mg PO QHS PRN PRN Reason: Sleep Last Admin: 03/20/20 22:20 Dose: 5 mg Documented by: Sertraline HCl (Zoloft) 50 mg PO QDAY [facility] Last Admin: 03/25/20 09:37 Dose: 50 mg Documented by: Results - Results Labs/Vitals: Laboratory Last Values WBC 7.5 K/mm3 (4.5-11.0) 03/21/20 12:06 RBC 4.00 M/mm3 (3.65-5.03) 03/21/20 12:06 Hgb 13.4 gm/dl (10.1-14.3) 03/21/20 12:06 Hct 40.0 % (30.3-42.9) 03/21/20 12:06 MCV 100 fl (79-97) H 03/21/20 12:06 MCH 34 pg (28-32) H 03/21/20 12:06 MCHC 34 % (30-34) 03/21/20 12:06 RDW 14.3 % (13.2-15.2) 03/21/20 12:06 Plt Count 287 K/mm3 (140-440) 03/21/20 12:06 Lymph % (Auto) 29.7 % (13.4-35.0) 03/21/20 12:06 [place] % (Auto) 4.7 % (0.0-7.3) 03/21/20 12:06 Eos % (Auto) 1.5 % (0.0-4.3) 03/21/20 12:06 Baso % (Auto) 0.6 % (0.0-1.8) 03/21/20 12:06 Lymph # 2.2 K/mm3 (1.2-5.4) 03/21/20 12:06 [place] # 0.4 K/mm3 (0.0-0.8) 03/21/20 12:06 Eos # 0.1 K/mm3 (0.0-0.4) 03/21/20 12:06 Baso # 0.0 K/mm3 (0.0-0.1) 03/21/20 12:06 Seg Neutrophils % 63.5 % (40.0-70.0) 03/21/20 12:06 Seg Neutrophils # 4.8 K/mm3 (1.8-7.7) 03/21/20 12:06 Sodium 139 mmol/L (137-145) 03/21/20 12:06 Potassium 4.4 mmol/L (3.6-5.0) 03/21/20 12:06 Chloride 101.2 mmol/L (98-107) 03/21/20 12:06 Carbon Dioxide 26 mmol/L (22-30) 03/21/20 12:06 Anion Gap 16 mmol/L 03/21/20 12:06 BUN 15 mg/dL (7-17) 03/21/20 12:06 Creatinine 0.8 mg/dL (0.6-1.2) 03/21/20 12:06 Estimated GFR > 60 ml/min 03/21/20 12:06 BUN/Creatinine Ratio 19 % 03/21/20 12:06 Glucose 101 mg/dL (65-100) H 03/21/20 12:06 POC Glucose 84 (70-105) 03/21/20 11:54 Hemoglobin A1c 5.5 % (4-6) 03/21/20 12:06 Calcium 9.2 mg/dL (8.4-10.2) 03/21/20 12:06 Total Bilirubin 0.40 mg/dL (0.1-1.2) 03/21/20 12:06 AST 24 units/L (5-40) 03/21/20 12:06 ALT 31 units/L (7-56) 03/21/20 12:06 Alkaline Phosphatase 81 units/L (35-129) 03/21/20 12:06 Total Protein 7.2 g/dL (6.3-8.2) 03/21/20 12:06 Albumin 4.4 g/dL (3.9-5) 03/21/20 12:06 Albumin/Globulin Ratio 1.6 % 03/21/20 12:06 Triglycerides 216 mg/dL (2-149) H 03/21/20 12:06 Cholesterol 211 mg/dL (50-199) H 03/21/20 12:06 LDL Cholesterol Direct 156 mg/dL (50-130) H 03/21/20 12:06 HDL Cholesterol 39 mg/dL (40-59) L 03/21/20 12:06 Cholesterol/HDL Ratio 5.41 % 03/21/20 12:06 TSH 1.140 mlU/mL (0.270-4.200) 03/21/20 12:06 Last Vital Signs Temp 98.6 F 03/25/20 19:33 Pulse 79 03/25/20 19:34 Resp 16 03/25/20 19:33 BP 131/70 03/25/20 19:33 Pulse Ox 96 03/25/20 19:34
[2020-03-26] MEDS: ARIPiprazole 10 MG TAB PO SCH (10:51)
[2020-03-26] MEDS: DIVALPROEX DR 250 MG TAB PO SCH ×2 (10:51→21:04)
[2020-03-26] MEDS: LORazepam 1 MG TAB PO SCH ×3 (10:51→20:28)
[2020-03-26] MEDS: SERTRALINE 50 MG TAB PO SCH (10:51)
[2020-03-26] MEDS: OMEGA-3 FATTY ACIDS/FISH OIL 1 GRAM CAP PO SCH ×2 (10:53→21:04)
[2020-03-26] MEDS: GABAPENTIN 400 MG CAP PO SCH ×4 (11:35→21:04)
--- NOTE | 2020-03-27 09:02 | Discharge Summary ---
Providers - Providers Date of Admission: 03/20/20 18:48 Date of discharge: 03/27/20 Attending physician: RAY LYLES MD 03/20/20 15:58 Consult to Physician [CONS] Routine Comment: Consulting Provider: BRENDA SIDDIQUI Physician Instructions: Reason For Exam: Medical Management Primary care physician: FORENSIC DNA ANALYST Hospitalization Reason for admission: suicidal thoughts Admitting Diagnosis: F31.4 - BIPOLAR DISORD, CRNT EPSD DEPRESS, SEV, W/O PSYCH FEATURES Hospital course: The patient was provided inpatient psychiatric treatment with safe and supportive care, medication adjustment, adverse effect monitoring, medical evaluations, medical treatments, assessment and psycho-education. The patient's mood, cognition, behavior, moral support are improved and stabilized. St the time of discharge, the patient had no endangering behavior and no debilitating adverse effects. The patient agreed on potential consequences of no treatment and gave informed consent. Disposition: DC-01 TO HOME OR SELFCARE Time spent for discharge: 39 Allergies/Adverse Reactions: Allergies No Known Allergies Allergy (Verified 03/19/20 19:21) Vital Signs: Last Vital Signs Temp 99 F 03/26/20 21:17 Pulse 78 03/26/20 21:17 Resp 18 03/26/20 21:17 BP 137/68 03/26/20 22:13 Pulse Ox 96 03/26/20 21:17 Last Lab: Laboratory Last Values WBC 7.5 K/mm3 (4.5-11.0) 03/21/20 12:06 RBC 4.00 M/mm3 (3.65-5.03) 03/21/20 12:06 Hgb 13.4 gm/dl (10.1-14.3) 03/21/20 12:06 Hct 40.0 % (30.3-42.9) 03/21/20 12:06 MCV 100 fl (79-97) H 03/21/20 12:06 MCH 34 pg (28-32) H 03/21/20 12:06 MCHC 34 % (30-34) 03/21/20 12:06 RDW 14.3 % (13.2-15.2) 03/21/20 12:06 Plt Count 287 K/mm3 (140-440) 03/21/20 12:06 Lymph % (Auto) 29.7 % (13.4-35.0) 03/21/20 12:06 [place] % (Auto) 4.7 % (0.0-7.3) 03/21/20 12:06 Eos % (Auto) 1.5 % (0.0-4.3) 03/21/20 12:06 Baso % (Auto) 0.6 % (0.0-1.8) 03/21/20 12:06 Lymph # 2.2 K/mm3 (1.2-5.4) 03/21/20 12:06 [place] # 0.4 K/mm3 (0.0-0.8) 03/21/20 12:06 Eos # 0.1 K/mm3 (0.0-0.4) 03/21/20 12:06 Baso # 0.0 K/mm3 (0.0-0.1) 03/21/20 12:06 Seg Neutrophils % 63.5 % (40.0-70.0) 03/21/20 12:06 Seg Neutrophils # 4.8 K/mm3 (1.8-7.7) 03/21/20 12:06 Sodium 139 mmol/L (137-145) 03/21/20 12:06 Potassium 4.4 mmol/L (3.6-5.0) 03/21/20 12:06 Chloride 101.2 mmol/L (98-107) 03/21/20 12:06 Carbon Dioxide 26 mmol/L (22-30) 03/21/20 12:06 Anion Gap 16 mmol/L 03/21/20 12:06 BUN 15 mg/dL (7-17) 03/21/20 12:06 Creatinine 0.8 mg/dL (0.6-1.2) 03/21/20 12:06 Estimated GFR > 60 ml/min 03/21/20 12:06 BUN/Creatinine Ratio 19 % 03/21/20 12:06 Glucose 101 mg/dL (65-100) H 03/21/20 12:06 POC Glucose 84 (70-105) 03/21/20 11:54 Hemoglobin A1c 5.5 % (4-6) 03/21/20 12:06 Calcium 9.2 mg/dL (8.4-10.2) 03/21/20 12:06 Total Bilirubin 0.40 mg/dL (0.1-1.2) 03/21/20 12:06 AST 24 units/L (5-40) 03/21/20 12:06 ALT 31 units/L (7-56) 03/21/20 12:06 Alkaline Phosphatase 81 units/L (35-129) 03/21/20 12:06 Total Protein 7.2 g/dL (6.3-8.2) 03/21/20 12:06 Albumin 4.4 g/dL (3.9-5) 03/21/20 12:06 Albumin/Globulin Ratio 1.6 % 03/21/20 12:06 Triglycerides 216 mg/dL (2-149) H 03/21/20 12:06 Cholesterol 211 mg/dL (50-199) H 03/21/20 12:06 LDL Cholesterol Direct 156 mg/dL (50-130) H 03/21/20 12:06 HDL Cholesterol 39 mg/dL (40-59) L 03/21/20 12:06 Cholesterol/HDL Ratio 5.41 % 03/21/20 12:06 TSH 1.140 mlU/mL (0.270-4.200) 03/21/20 12:06 Core Measure Documentation - Palliative Care Palliative Care/ Comfort Measures: Not Applicable - Core Measures Any of the following diagnoses?: none Exam - Constitutional Vitals: Temp Pulse Resp BP Pulse Ox 99 F 78 18 137/68 96 03/26/20 21:17 03/26/20 21:17 03/26/20 21:17 03/26/20 22:13 03/26/20 21:17 General appearance: Present: no acute distress, well-nourished - EENT Eyes: Present: EOM intact ENT: hearing intact, clear oral mucosa - Neck Neck: Present: supple, normal ROM - Respiratory Respiratory effort: normal Plan Activity: advance as tolerated Weight Bearing Status: Weight Bear as Tolerated Care Plan Goals: maintain good and stable mental health Plan of Treatment: The patient should be compliant with medications, not to use drugs, and not to drink alcohol. The patient understands that if suicidal ideas, homicidal ideas or any endangering feeling arise, the patient should seek assistance including, but not limited to crisis hotline, and emergency room. Assessment: Bipolar Disorder During time of assessment for discharge readiness, the patient was calm, cooperative with an organized thought process and stable mood. She denies SI/HI or hallucinations of any kind. Follow up with: PRIMARY CARE, [Primary Care Provider] - 7 Days
[2020-03-27 09:50] VITALS: BP 107/73
[2020-03-27] MEDS: LORazepam 1 MG TAB PO SCH (11:11)
[2020-03-27] MEDS: DIVALPROEX DR 250 MG TAB PO SCH (11:11)
[2020-03-27] MEDS: ARIPiprazole 10 MG TAB PO SCH (11:12)
[2020-03-27] MEDS: GABAPENTIN 400 MG CAP PO SCH (11:12)
[2020-03-27] MEDS: SERTRALINE 50 MG TAB PO SCH (11:12)
[2020-03-27] MEDS: OMEGA-3 FATTY ACIDS/FISH OIL 1 GRAM CAP PO SCH (11:12)
== END 2020-03-27 12:45 | disposition home or self-care (01) | DRG 885 ==
LOC: UNDOADMIN 14:52 → 3A 14:52 → 5A 18:48
PROVIDERS: ADMIT Psychiatry & Neurology Psychiatry; ATTEND Psychiatry & Neurology Psychiatry
DX: F31.4 Bipolar disorder, current episode depressed, severe, without psychotic features (principal); F41.0 Panic disorder [episodic paroxysmal anxiety]
CPT/HCPCS: 36415; 80048; 80053; 80061; 80307; 80320; 81001; 82962; 83036; 84443; 85025; 99284; G0378; G0480; U0003-CS

== ENCOUNTER 2020-04-17 19:26 | Emergency (ER) | payer MEDICARE ==
[2020-04-17 22:02] LABS: Basophils # (Auto) 0.1 K/mm3 (0.0-0.1); Basophils % (Auto) 0.9 % (0.0-1.8); Eosinophils # (Auto) 0.1 K/mm3 (0.0-0.4); Eosinophils % (Auto) 0.8 % (0.0-4.3); Hematocrit 43.1 % (30.3-42.9); Hemoglobin 15.1 gm/dl (10.1-14.3); Lymphocytes # (Auto) 3.6 K/mm3 (1.2-5.4); Lymphocytes % (Auto) 34.8 % (13.4-35.0); Mean Corpuscular HGB Conc 35 % (30-34); Mean Corpuscular Volume 97 fl (79-97); Monocytes # (Auto) 0.5 K/mm3 (0.0-0.8); Monocytes % (Auto) 4.6 % (0.0-7.3); Platelet Count 353 K/mm3 (140-440); Red Blood Count 4.46 M/mm3 (3.65-5.03)
[2020-04-17 22:14] LABS: Calcium 10.1 mg/dL (8.4-10.2)
[2020-04-17 22:45] LABS: Bilirubin,Urine NEG (Negative); Blood,Urine NEG (Negative); Color,Urine Yellow (Yellow); Mucus,Urine FEW /HPF; Urobilinogen,Urine < 2.0 mg/dL (<2.0)
[2020-04-17] MEDS ORDERED: QUEtiapine 25 MG TAB PO ONE (22:45)
[2020-04-17] MEDS ORDERED: LORazepam 1 MG TAB PO ONE (22:45)
[2020-04-17 22:48] LABS: Amphetamine Screen,Urine PRESUMPTIVE NEGATIVE; Benzodiazepines Screen,Urine PRESUMPTIVE NEGATIVE; Cannabinoid Screen,Urine PRESUMPTIVE NEGATIVE; Cocaine Screen,Urine PRESUMPTIVE NEGATIVE; Methadone Screen,Urine PRESUMPTIVE NEGATIVE; Opiate Screen,Urine PRESUMPTIVE NEGATIVE
--- NOTE | 2020-04-17 23:35 | Emergency Department Report ---
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 Patient states he has been compliant with her Ativan 1 mg 3 times daily, gabap entin 800 mg 4 times daily, and Seroquel 50 mg nightly. Patient denies previous suicide attempts or current plan. She has no complaints other than chronic right hand neuropathy pain. As per medical record review patient was admitted to [facility] and discharged on March 27 with a diagnosis of BIPOLAR DISORD, CRNT EPSD DEPRESS, SEV, W/O PSYCH FEATURES. Discharge meds also include Depakote, Abilify, and Zoloft which the patient denies currently taking. - Related Data Home Medications Medication Instructions Recorded Confirmed Last Taken LORazepam [Ativan] 1 mg PO TID 08/27/18 04/17/20 08/27/18 Gabapentin [Neurontin] 800 mg PO QID 03/20/20 04/17/20 Unknown Previous Rx's Medication Instructions Recorded Last Taken Type Nitrofurantoin Sublette/M-Cryst 100 mg PO BID #8 capsule 04/18/20 Unknown Rx [Macrobid CAP] Allergies Allergy/AdvReac Type Severity Reaction Status Date / Time No Known Allergies Allergy Verified 03/19/20 19:21 ED Review of Systems Comment: All other systems reviewed and negative 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 - Surgical History Past Surgical History?: Yes Hx Cholecystectomy: No Hx Appendectomy: No Additional Surgical History: hand surgery - Social History Smoking Status: Current Every Day Smoker Substance Use Type: None - Medications Home Medications: Home Medications Medication Instructions Recorded Confirmed Last Taken Type LORazepam [Ativan] 1 mg PO TID 08/27/18 04/17/20 08/27/18 History Gabapentin [Neurontin] 800 mg PO QID 03/20/20 04/17/20 Unknown History Nitrofurantoin Sublette/M-Cryst 100 mg PO BID #8 capsule 04/18/20 Unknown Rx [Macrobid CAP] ED Physical Exam - General Limitations: No Limitations - Other Other exam information: General: No acute distress Head: Atraumatic Eyes: normal appearance ENT: Moist mucous membranes Neck: Normal appearance, no midline tenderness Chest: Clear to auscultation bilaterally CV: Regular rate and rhythm Abdomen: Soft, normal bowel sounds, nontender, nondistended, no rebound or guarding Back: Normal inspection Extremity: Limited movement of right hand secondary to chronic nerve damage and tendon injury Neuro: Alert O x 3, no facial asymmetry, speech clear, no gross motor sensory deficit Psych: Appropriate behavior Skin: No rash ED Medical Decision Making - Lab Data Result diagrams: 04/17/20 21:36 04/17/20 21:36 - Medical Decision Making Patient presents to the hospital with suicidal ideation, depression, psychosis. Patient is she presents tachycardic and was provided Ativan and Seroquel with improvement in heart rate UA has increased RBC count therefore patient was treated for UTI Patient is medically clear for inpatient psychiatric admission Critical Care Time: No ED Disposition Clinical Impression: UTI (urinary tract infection), Schizoaffective disorder Disposition: DC-01 TO HOME OR SELFCARE Is pt being admited?: No Condition: Stable Instructions: Schizoaffective Disorder (ED), Urinary Tract Infection in Women (ED) Additional Instructions: OUTPATIENT MENTAL HEALTH RESOURCES [facility], [facility] Sue Ni MD: [address] [place] [address], [address] [facility] [address] [place] [address] [place], [place] [id number] [facility]: [employer] [address] [place] [address] [place] [address] [phone] [facility]: [facility]: [address] [place] [address] [address] [place] [address] [address] [place], [place] [id number] [place] [address] [phone] [facility]: Mitchell Leary MD: [address] [facility] [address] [place], [place] [id number] [facility]: [address] [place] [address] [phone] [place] [facility]IS AND ACCESS LINE: Prescriptions: Nitrofurantoin Sublette/M-Cryst [Macrobid CAP] 100 mg PO BID #8 capsule Time of Disposition: 01:59 <ARIANNA ALLEN - Last Filed: 04/18/20 16:17> ED Review of Systems ROS: Stated complaint: SI Other details as noted in HPI ED Course Vital Signs 04/17/20 04/18/20 04/18/20 21:17 01:40 01:46 Temperature 98.4 F 97.4 F L Pulse Rate 119 H 88 Respiratory 16 18 Rate Blood Pressure 137/93 119/61 O2 Sat by Pulse 94 100 Oximetry 04/18/20 08:58 Temperature 98.4 F Pulse Rate 107 H Respiratory 18 Rate Blood Pressure 144/77 O2 Sat by Pulse 97 Oximetry - Reevaluation(s) Reevaluation #1: 04/18/20 16:12 Patient seen and evaluated by psychiatry team. Patient thought to be reporting suicidal ideations for secondary gain (which include food and Ativan), as patient had a recent psychiatric admission 3 weeks ago. Outpatient follow-up was recommended. 1013 rescinded. Patient will be discharged home with prescriptions for antibiotics for UTI. ED Medical Decision Making - Lab Data Result diagrams: 04/17/20 21:36 04/17/20 21:36 Critical care attestation.: If time is entered above; I have spent that time in minutes in the direct care of this critically ill patient, excluding procedure time. ED Disposition Is pt being admited?: No
[2020-04-18] MEDS: NITROFURANTOIN MONOHYD/M-CRYST 100 MG CAP PO SCH ×2 (02:53→12:25)
[2020-04-18] MEDS ORDERED: LORazepam 1 MG TAB PO SCH ×2 (08:00→22:00)
[2020-04-18 09:27] VITALS: BP 144/77
[2020-04-18] MEDS ORDERED: NON-FORMULARY EACH (Gabapentin [Neurontin] 800 MG) PO SCH (10:00)
--- NOTE | 2020-04-18 10:55 | Consultation ---
History of Present Illness - Reason for Consult Consult date: 04/18/20 Reason for consult: MHE Requesting physician: SOHA YOON - Chief Complaint Chief complaint: Per ED Provider: The patient is a 55-year-old female present with a chief complaint of suicidal ideation. Patient states she started feeling suicidal yesterday but denies any plans or active attempts at harming herself. Patient states she considered "pills" but never acted on it. Per MHA: Pt is a 55 year old female; Pt endorses active SI with command auditory hallucinations; "the voices keep saying Just kill yourself; it will be better." Pt is unable to identify triggers at this time. "I can't think; the voices are racing." Pt carries a diagnosis of Schizoaffective Disorder. Pt has had multiple inpatient admissions in the past; most recent stabilization was at this [facility] unit 03/20/2020 to 03/27/2020. Pt receives outpatient mental health services through [facility] Address: [address] [place] [id number]: ; . Pt endorses command AH to kill self. Pt has poor memory with flat affect. Pt reports severe anxiety and inability to control the racing thoughts and AH. Pt is disheveled in appearance.Pt denies any homicidal thoughts/plans. "No, I don't want to hurt anyone." Pt resides at [address] [place] [address]. [facility] where she rents out a room. PSYCH HPI Patient is a 55 year old single, unemployed currently on disability 55 year old female who resides in a transitional home with past psychiatric history of depression and panic attacks presents to the ED with chief complaint of suicidal ideation accompanied with auditory hallucination. Patient is known to me from prior encounter and was admitted for similar complaints barely 2 weeks ago in which she could not attribute any reasons to why she was suicidal. Patient today, is asking for ativan that she takes at home to be continued, seeking to be placed and unable to provide secondary information. PAST PSYCHIATRIC HISTORY: Diagnoses: suicidal thoughts, panic attacks Suicide attempts or Self-harm behavior: Denies Prior psychiatric hospitalizations: Twice Substance Abuse history: Denies Previous psychiatric medications tried: Ativan, Gabapentin Outpatient treatment: Yes PAST MEDICAL HISTORY: None reported Family Psychiatric History None reported SOCIAL HISTORY Marital Status: Single Living Arrangements: "rents a room" Employment Status: Disabled Access to guns/weapons: Denied Education: High school diploma History of Abuse: Denies Legal History: Denies ROS: Constitutional: Negative for weight loss ENT: Negative for stridor Respiratory: Negative for cough or hemoptysis All other systems reviewed and are negative MENTAL STATUS EXAMINATION General Appearance and Behavior: Age appropriate, fair hygiene, wearing appropriate clothes, good eye contact, uncooperative polite with questioning. Cooperation: Participating and Guarded Psychomotor Behavior: Psychomotor agitation Mood: Depressed Affect and affective range: decreased range, dysthymic,, irritable Thought Process: Illogical Thought Content: Illogical Speech: Normal volume, Regular rate and rhythm Intellectual Functioning: Average Suicidal Ideation: Suicidal Homicidal Ideation: Denies HI Impulse Control: Impaired Insight and Judgment: Impaired Memory: Prospective memory impaired Attention: Distractible Orientation: Alert, oriented, anxious Diagnoses: Assessment and Plan - Psychiatric problem (1) Bipolar 2 disorder, major depressive episode Current Visit: Yes Status: Acute Treatment Plan MEDICATIONS: Risks, benefits and alternatives of medications discussed with the patient, questions answered and consent obtained from patient. PSYCHOTHERAPY: Supportive psychotherapy provided MEDICAL: Per primary team DELIRIUM PRECAUTIONS: Please re-orient patient frequently, keep lights on during the day, and minimize benzodiazepines and opiates as these medications could worsen patient's confusion. HACK DRIVER: DISPOSITION: Do Recommend acute inpatient psychiatric hospitalization at this time LEGAL STATUS: 1013 FOLLOW-UP: Will follow Thank you for the consult. Please contact with any questions and/or concerns. 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 Patient states he has been compliant with her Ativan 1 mg 3 times daily, gabapentin 800 mg 4 times daily, and Seroquel 50 mg nightly. Patient denies previous suicide attempts or current plan. She has no complaints other than chronic right hand neuropathy pain. As per medical record review patient was admitted to [facility] and discharged on March 27 with a diagnosis of BIPOLAR DISORD, CRNT EPSD DEPRESS, SEV, W/O PSYCH FEATURES. Discharge meds also include Depakote, Abilify, and Zoloft which the patient denies currently taking. Per MHA: Pt is a 54 yo female presenting to ED for MHE, as pt reported SI and requested to be admitted to [facility]. During ax, pt presented as calm and cooperative, with congruent affect. Pt displays lucid thought process. Pt stated she came in for suicidal ideations. Pt denies plan. Pt denies A/V H. Pt reports a dx of Anxiety and Panic Attacks, with connection to OP tx. Per records, pt is connected to [facility]. Pt informed head sugar reprocess operator that she has been out of her psychiatric medication. Pt initially reported attending day program Tuesday, Tuesday and Tuesday. Once head sugar reprocess operator attempted to explore f/u care on Tuesday to address medication concern, pt recanted and stated she does not go to program until Tuesday. Apprentice Carpenter contacted business process engineer, Silvia of [employer] to inquire about pts treatment. Per Silvia, pt last received a 3-month supply for medication on December 18. Apprentice Carpenter informed that contact will be made with pharmacy to check if refill was picked up. Apprentice Carpenter also informed that pt is scheduled for day program services Tuesday-Tuesday; however, has recently not been coming out of home when being picked up in the morning. Per Silvia, she will call to encourage pt to attend. Pt is scheduled to see DEPUTY FELONY CLERK this upcoming , and medication will be explored. PSYCH HPI Patient is a 55 year old single, unemployed currently on disability 55 year old female who resides in a transitional home with past psychiatric history of depression and panic attacks presents to the ED with chief complaint of suicidal ideation. Patient reports: Now 1 from a transitional living facility after sister having suicidal thoughts and she does not know why. She reports feeling severely depressed with unknown specific trigger, denies hearing voices, she reports sleeping pretty good denies no changes in appetite but endorses decreased interest and motivation to do anything at all. Patient reports she wishes that she knows why she is depressed that she would not be here. Patient appears restless, impulsive and constantly moving PAST PSYCHIATRIC HISTORY: Diagnoses: suicidal thoughts, panic attacks Suicide attempts or Self-harm behavior: Denies Prior psychiatric hospitalizations: Twice Substance Abuse history: Denies Previous psychiatric medications tried: Ativan, Gabapentin Outpatient treatment: Yes PAST MEDICAL HISTORY: None reported Family Psychiatric History None reported SOCIAL HISTORY Marital Status: Single Living Arrangements: "rents a room" Employment Status: Disabled Access to guns/weapons: Denied Education: High school diploma History of Abuse: Denies Legal History: Denies ROS: Constitutional: Negative for weight loss ENT: Negative for stridor Respiratory: Negative for cough or hemoptysis All other systems reviewed and are negative MENTAL STATUS EXAMINATION General Appearance and Behavior: Age appropriate, fair hygiene, wearing appropriate clothes, good eye contact, cooperative polite with questioning. Cooperation: Participating and Guarded Psychomotor Behavior: Psychomotor normal Mood: Depressed Affect and affective range: incongruent with mood Thought Process: Illogical Thought Content: Illogical, hallucination Speech: Normal volume, Regular rate and rhythm Intellectual Functioning: Average Suicidal Ideation: Suicidal Homicidal Ideation: Denies HI Impulse Control: Impaired Insight and Judgment: Impaired Memory: Prospective memory impaired Attention: Normal Orientation: Alert, oriented, Diagnoses: Assessment and Plan - Psychiatric problem (1) Bipolar 2 disorder, major depressive episode Current Visit: Yes Status: Acute Treatment Plan Patient is known to me from prior encounters, has diagnosis of chronic schizoaffective, never presented to me with pyschotic disorders but only SI accompained with auditory hallucination, patient has received intervention and stabilized with medications most recently 3 weeks ago, patient current risk factors are not currently modifiable with acute inpatient psychiatric hospitalization based on history, the patient is seeking secondary gain for inpatient care as regards to food, medication mostly ativan hence psychiatrically hospitalizing this patient is contraindicated, as it will reinforce maladaptive behaviors of coming to the hospital for those specific reasons. Patient presenting symptoms can be managed outpt with her psychiatrist, patient also is non compliant with medicine as she does not remember the name of her psych medicines but knows she takes ativan and gabapentin. Protective factors include access to care, no history of suicide attempts, and disability income. MEDICATIONS: Risks, benefits and alternatives of medications discussed with the patient, questions answered and consent obtained from patient. PSYCHOTHERAPY: Supportive psychotherapy provided MEDICAL: Per primary team DELIRIUM PRECAUTIONS: Please re-orient patient frequently, keep lights on during the day, and minimize benzodiazepines and opiates as these medications could worsen patient's confusion. HACK DRIVER: DISPOSITION: Do not Recommend acute inpatient psychiatric hospitalization at this time. Outpt psych, defer to case management LEGAL STATUS: 1013 rescinded FOLLOW-UP: Will follow Thank you for the consult. Please contact with any questions and/or concerns. Medications and Allergies Allergies Allergy/AdvReac Type Severity Reaction Status Date / Time No Known Allergies Allergy Verified 03/19/20 19:21 Home Medications Medication Instructions Recorded Confirmed Last Taken Type LORazepam [Ativan] 1 mg PO TID 08/27/18 04/17/20 08/27/18 History Gabapentin [Neurontin] 800 mg PO QID 03/20/20 04/17/20 Unknown History Active Meds: Active Medications Gabapentin (Gabapentin) 800 mg PO QID [facility] Lorazepam (Ativan) 1 mg PO TID [facility] Nitrofurantoin Macrocrystals (Macrobid) 100 mg PO BID [facility] Stop: 04/22/20 10:01 Last Admin: 04/18/20 02:53 Dose: 100 mg Documented by: Quetiapine Fumarate (Seroquel) 50 mg PO QHS [facility] Mental Status Exam - Vital signs Last Vital Signs Temp 98.4 F 04/18/20 08:58 Pulse 107 H 04/18/20 08:58 Resp 18 04/18/20 08:58 BP 144/77 04/18/20 08:58 Pulse Ox 97 04/18/20 08:58 Results Result Diagrams: 04/17/20 21:36 04/17/20 21:36 Abnormal lab results 04/17/20 04/17/20 04/17/20 Range/Units 21:34 21:36 21:36 Hgb (10.1-14.3) gm/dl Hct (30.3-42.9) % MCH (28-32) pg MCHC (30-34) % RDW (13.2-15.2) % Chloride (98-107) mmol/L Glucose (65-100) mg/dL Total Creatine Kinase (30-135) units/L Urine WBC (Auto) 36.0 H (0.0-6.0) /HPF Salicylates < 0.3 L (2.8-20.0) mg/dL Acetaminophen 5.0 L (10.0-30.0) ug/mL 04/17/20 04/17/20 04/17/20 Range/Units 21:36 21:36 21:36 Hgb 15.1 H (10.1-14.3) gm/dl Hct 43.1 H (30.3-42.9) % MCH 34 H (28-32) pg MCHC 35 H (30-34) % RDW 13.0 L (13.2-15.2) % Chloride 96.1 L (98-107) mmol/L Glucose 126 H (65-100) mg/dL Total Creatine Kinase 268 H (30-135) units/L Urine WBC (Auto) (0.0-6.0) /HPF Salicylates (2.8-20.0) mg/dL Acetaminophen (10.0-30.0) ug/mL All other labs normal.
[2020-04-18] MEDS: GABAPENTIN 400 MG CAP PO SCH ×2 (12:25→15:30)
[2020-04-18] MEDS ORDERED: QUEtiapine 25 MG TAB PO SCH ×2 (22:00)
== END 2020-04-18 17:06 | disposition home or self-care (01) ==
LOC: ED 19:26
DX: N39.0 Urinary tract infection, site not specified (principal); F25.9 Schizoaffective disorder, unspecified; F41.9 Anxiety disorder, unspecified; Z79.899 Other long term (current) drug therapy
CPT/HCPCS: 36415; 80048; 80307; 80320; 81001; 82550; 85025; 87086; G0480

== ENCOUNTER 2020-05-18 16:19 | Emergency (ER) | payer MEDICARE ==
[2020-05-18 17:27] LABS: Basophils # (Auto) 0.1 K/mm3 (0.0-0.1); Basophils % (Auto) 1.8 % (0.0-1.8); Eosinophils # (Auto) 0.3 K/mm3 (0.0-0.4); Eosinophils % (Auto) 3.3 % (0.0-4.3); Hemoglobin 15.3 gm/dl (10.1-14.3); Lymphocytes # (Auto) 2.4 K/mm3 (1.2-5.4); Lymphocytes % (Auto) 31.1 % (13.4-35.0); Mean Corpuscular HGB Conc 34 % (30-34); Mean Corpuscular Volume 98 fl (79-97); Monocytes # (Auto) 0.3 K/mm3 (0.0-0.8); Monocytes % (Auto) 4.3 % (0.0-7.3); Platelet Count 302 K/mm3 (140-440); Red Blood Count 4.59 M/mm3 (3.65-5.03); Red Cell Distribution Width 13.2 % (13.2-15.2)
--- NOTE | 2020-05-18 17:28 | Emergency Department Report ---
HPI - General Chief Complaint: Psych Time Seen by Provider: 05/18/20 17:20 - HPI HPI: This is a 55-year-old female presents to the emergency department with complaint of a 2-day history of suicidal ideations. The patient also admits to auditory hallucinations that are telling her to kill herself and that "it would be a good thing." Patient says that she would overdose on medication in order to harm herself. She has a past psychiatric history of anxiety and schizophrenia. Patient says that she takes Ativan for her anxiety, gabapentin for chronic nerve pain, and she is also on some psychiatric medications for the schizophrenia but has not been compliant with them over the past few days. She says that she follows up with a psychiatrist or therapist, Coni Celestin. The patient is specifically asking to go to [facility]. She denies any past medical history. 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 - Surgical History Hx Cholecystectomy: No Hx Appendectomy: No Additional Surgical History: hand surgery - Social History Smoking Status: Current Every Day Smoker Substance Use Type: None - Medications Home Medications: Home Medications Medication Instructions Recorded Confirmed Last Taken Type LORazepam [Ativan] 1 mg PO TID 08/27/18 05/18/20 1 Day Ago History ~05/17/20 Gabapentin [Neurontin] 800 mg PO QID 03/20/20 05/18/20 1 Day Ago History ~05/17/20 Nitrofurantoin [place]/M-Cryst 100 mg PO BID #8 capsule 04/18/20 05/18/20 Unknown Rx [Macrobid CAP] ED Review of Systems ROS: Stated complaint: PSYCH/SUICIDAL THOUGHTS Other details as noted in HPI Comment: All other systems reviewed and negative Constitutional: denies: chills, fever Respiratory: denies: cough, shortness of breath Cardiovascular: denies: chest pain, palpitations Gastrointestinal: denies: abdominal pain, vomiting Neurological: denies: headache, weakness Psychiatric: depression, auditory hallucinations, suicidal thoughts. denies: homicidal thoughts Physical Exam - Physical Exam Vital Signs: Vital Signs 05/18/20 16:59 Temperature 97.8 F Pulse Rate 102 H Respiratory 18 Rate Blood Pressure 142/83 [Left] O2 Sat by Pulse 100 Oximetry Physical Exam: GENERAL: The patient is well-developed well-nourished. HENT: Normocephalic. Atraumatic. Patient has moist mucous membranes. EYES: Extraocular motions are intact. NECK: Supple. Trachea is midline. CHEST/LUNGS: Clear to auscultation. There is no respiratory distress noted. HEART/CARDIOVASCULAR: Regular. There is no tachycardia. ABDOMEN: Abdomen is soft, nontender. Patient has normal bowel sounds. SKIN: Skin is warm and dry. NEURO: The patient is awake, alert, and oriented. The patient is cooperative. Normal speech. MUSCULOSKELETAL: There is no tenderness or deformity. There is no limitation range of motion. ED Course Vital Signs 05/18/20 16:59 Temperature 97.8 F Pulse Rate 102 H Respiratory 18 Rate Blood Pressure 142/83 [Left] O2 Sat by Pulse 100 Oximetry - Consultations Consultation #1: 05/18/20 23:17 Lab Results 05/18/20 05/18/20 05/18/20 Range/Units 17:10 17:10 17:10 WBC (4.5-11.0) K/mm3 RBC (3.65-5.03) M/mm3 Hgb (10.1-14.3) gm/dl Hct (30.3-42.9) % MCV (79-97) fl MCH (28-32) pg MCHC (30-34) % RDW (13.2-15.2) % Plt Count (140-440) K/mm3 Lymph % (Auto) (13.4-35.0) % [place] % (Auto) (0.0-7.3) % Eos % (Auto) (0.0-4.3) % Baso % (Auto) (0.0-1.8) % Lymph # (Auto) (1.2-5.4) K/mm3 [place] # (Auto) (0.0-0.8) K/mm3 Eos # (Auto) (0.0-0.4) K/mm3 Baso # (Auto) (0.0-0.1) K/mm3 Seg Neutrophils % (40.0-70.0) % Seg Neutrophils # (1.8-7.7) K/mm3 Sodium 140 (137-145) mmol/L Potassium 4.4 (3.6-5.0) mmol/L Chloride 101.1 (98-107) mmol/L Carbon Dioxide 27 (22-30) mmol/L Anion Gap 16 mmol/L BUN 7 (7-17) mg/dL Creatinine 0.8 (0.6-1.2) mg/dL Estimated GFR > 60 ml/min BUN/Creatinine Ratio 9 % Glucose 113 H (65-100) mg/dL Calcium 9.8 (8.4-10.2) mg/dL Urine Color (Yellow) Urine Turbidity (Clear) Urine pH (5.0-7.0) Ur Specific [place] (1.003-1.030) Urine Protein (Negative) mg/dL Urine Glucose (UA) (Negative) mg/dL Urine Ketones (Negative) mg/dL Urine Blood (Negative) Urine Nitrite (Negative) Urine Bilirubin (Negative) Urine Urobilinogen (<2.0) mg/dL Ur Leukocyte Esterase (Negative) Urine WBC (Auto) (0.0-6.0) /HPF Urine RBC (Auto) (0.0-6.0) /HPF U Epithel Cells (Auto) (0-13.0) /HPF Salicylates < 0.3 L (2.8-20.0) mg/dL Urine Opiates Screen Urine Methadone Screen Acetaminophen 7.2 L (10.0-30.0) ug/mL Ur Barbiturates Screen Ur Phencyclidine Scrn Ur Amphetamines Screen U Benzodiazepines Scrn Urine Cocaine Screen U Marijuana (THC) Screen Drugs of Abuse Note Plasma/Serum Alcohol (0-0.07) % 05/18/20 05/18/20 05/18/20 Range/Units 17:10 17:10 17:27 WBC 7.7 (4.5-11.0) K/mm3 RBC 4.59 (3.65-5.03) M/mm3 Hgb 15.3 H (10.1-14.3) gm/dl Hct 45.0 H (30.3-42.9) % MCV 98 H (79-97) fl MCH 33 H (28-32) pg MCHC 34 (30-34) % RDW 13.2 (13.2-15.2) % Plt Count 302 (140-440) K/mm3 Lymph % (Auto) 31.1 (13.4-35.0) % [place] % (Auto) 4.3 (0.0-7.3) % Eos % (Auto) 3.3 (0.0-4.3) % Baso % (Auto) 1.8 (0.0-1.8) % Lymph # (Auto) 2.4 (1.2-5.4) K/mm3 [place] # (Auto) 0.3 (0.0-0.8) K/mm3 Eos # (Auto) 0.3 (0.0-0.4) K/mm3 Baso # (Auto) 0.1 (0.0-0.1) K/mm3 Seg Neutrophils % 59.5 (40.0-70.0) % Seg Neutrophils # 4.6 (1.8-7.7) K/mm3 Sodium (137-145) mmol/L Potassium (3.6-5.0) mmol/L Chloride (98-107) mmol/L Carbon Dioxide (22-30) mmol/L Anion Gap mmol/L BUN (7-17) mg/dL Creatinine (0.6-1.2) mg/dL Estimated GFR ml/min BUN/Creatinine Ratio % Glucose (65-100) mg/dL Calcium (8.4-10.2) mg/dL Urine Color Yellow (Yellow) Urine Turbidity Clear (Clear) Urine pH 5.0 (5.0-7.0) Ur Specific [place] 1.011 (1.003-1.030) Urine Protein 100 mg/dl (Negative) mg/dL Urine Glucose (UA) Neg (Negative) mg/dL Urine Ketones Neg (Negative) mg/dL Urine Blood Neg (Negative) Urine Nitrite Neg (Negative) Urine Bilirubin Neg (Negative) Urine Urobilinogen < 2.0 (<2.0) mg/dL Ur Leukocyte Esterase Neg (Negative) Urine WBC (Auto) 1.0 (0.0-6.0) /HPF Urine RBC (Auto) 1.0 (0.0-6.0) /HPF U Epithel Cells (Auto) 1.0 (0-13.0) /HPF Salicylates (2.8-20.0) mg/dL Urine Opiates Screen Urine Methadone Screen Acetaminophen (10.0-30.0) ug/mL Ur Barbiturates Screen Ur Phencyclidine Scrn Ur Amphetamines Screen U Benzodiazepines Scrn Urine Cocaine Screen U Marijuana (THC) Screen Drugs of Abuse Note Plasma/Serum Alcohol < 0.01 (0-0.07) % 05/18/20 Range/Units 17:27 WBC (4.5-11.0) K/mm3 RBC (3.65-5.03) M/mm3 Hgb (10.1-14.3) gm/dl Hct (30.3-42.9) % MCV (79-97) fl MCH (28-32) pg MCHC (30-34) % RDW (13.2-15.2) % Plt Count (140-440) K/mm3 Lymph % (Auto) (13.4-35.0) % [place] % (Auto) (0.0-7.3) % Eos % (Auto) (0.0-4.3) % Baso % (Auto) (0.0-1.8) % Lymph # (Auto) (1.2-5.4) K/mm3 [place] # (Auto) (0.0-0.8) K/mm3 Eos # (Auto) (0.0-0.4) K/mm3 Baso # (Auto) (0.0-0.1) K/mm3 Seg Neutrophils % (40.0-70.0) % Seg Neutrophils # (1.8-7.7) K/mm3 Sodium (137-145) mmol/L Potassium (3.6-5.0) mmol/L Chloride (98-107) mmol/L Carbon Dioxide (22-30) mmol/L Anion Gap mmol/L BUN (7-17) mg/dL Creatinine (0.6-1.2) mg/dL Estimated GFR ml/min BUN/Creatinine Ratio % Glucose (65-100) mg/dL Calcium (8.4-10.2) mg/dL Urine Color (Yellow) Urine Turbidity (Clear) Urine pH (5.0-7.0) Ur Specific [place] (1.003-1.030) Urine Protein (Negative) mg/dL Urine Glucose (UA) (Negative) mg/dL Urine Ketones (Negative) mg/dL Urine Blood (Negative) Urine Nitrite (Negative) Urine Bilirubin (Negative) Urine Urobilinogen (<2.0) mg/dL Ur Leukocyte Esterase (Negative) Urine WBC (Auto) (0.0-6.0) /HPF Urine RBC (Auto) (0.0-6.0) /HPF U Epithel Cells (Auto) (0-13.0) /HPF Salicylates (2.8-20.0) mg/dL Urine Opiates Screen Presumptive negative Urine Methadone Screen Presumptive negative Acetaminophen (10.0-30.0) ug/mL Ur Barbiturates Screen Presumptive negative Ur Phencyclidine Scrn Presumptive negative Ur Amphetamines Screen Presumptive negative U Benzodiazepines Scrn Presumptive negative Urine Cocaine Screen Presumptive negative U Marijuana (THC) Screen Presumptive negative Drugs of Abuse Note Disclamer Plasma/Serum Alcohol (0-0.07) % ED Medical Decision Making - Lab Data Result diagrams: 05/18/20 17:10 05/18/20 17:10 - Medical Decision Making This patient presents to the emergency department with a complaint of anxiety, depression and suicidal ideations with a plan to overdose on medication. For this reason the patient has been made a 1013. Labs have been unremarkable including CBC, metabolic panel, blood alcohol level, urine drug screen. Vital signs have been reassuring throughout her ED course including being afebrile. Patient was seen by the psychiatric forming machine tender who feels that the patient is a candidate for [facility] for inpatient stabilization. This patient is medically cleared for psychiatric placement. Critical Care Time: No Critical care attestation.: If time is entered above; I have spent that time in minutes in the direct care of this critically ill patient, excluding procedure time. ED Disposition Clinical Impression: Suicidal ideations Depression Qualifiers: Depression Type: unspecified Qualified Code(s): F32.9 - Major depressive disorder, single episode, unspecified Disposition: DC/TX-65 PSY HOSP/PSY UNIT Is pt being admited?: No Condition: Stable Time of Disposition: 23:19
[2020-05-18 17:39] LABS: BUN/Creatinine Ratio 9; Blood Urea Nitrogen 7 mg/dL (7-17); Calcium 9.8 mg/dL (8.4-10.2); Hemolysis Index 7
[2020-05-18 20:05] LABS: Bilirubin,Urine NEG (Negative); Blood,Urine NEG (Negative); Color,Urine Yellow (Yellow); Urobilinogen,Urine < 2.0 mg/dL (<2.0)
[2020-05-18 20:13] LABS: Amphetamine Screen,Urine PRESUMPTIVE NEGATIVE; Benzodiazepines Screen,Urine PRESUMPTIVE NEGATIVE; Cannabinoid Screen,Urine PRESUMPTIVE NEGATIVE; Cocaine Screen,Urine PRESUMPTIVE NEGATIVE; Methadone Screen,Urine PRESUMPTIVE NEGATIVE; Opiate Screen,Urine PRESUMPTIVE NEGATIVE
[2020-05-18] MEDS ORDERED: LORazepam 1 MG TAB ONE (20:31)
[2020-05-18] MEDS ORDERED: LORazepam 1 MG TAB PO ONE (20:31)
[2020-05-19 07:47] VITALS: BP 135/75
--- NOTE | 2020-05-19 10:48 | Consultation ---
History of Present Illness - Reason for Consult Consult date: 05/19/20 Reason for consult: SI - History of Present Psychiatric Illness Rina Judge is a 55y/o female patient who is known to me from previous visits. She presents to the hospital to day for suicidal thoughts. She says she is "depressed and hearing voices telling me to kill myself." She denies illicit drug use, alcohol or nicotine use. PAST PSYCHIATRIC HISTORY: Diagnoses: Bipolar, Depression Suicide attempts or Self-harm behavior: Denies Prior psychiatric hospitalizations: Twice Substance Abuse history: Denies Previous psychiatric medications tried: Ativan, Gabapentin Outpatient treatment: Yes PAST MEDICAL HISTORY: None reported Family Psychiatric History: None reported SOCIAL HISTORY Marital Status: Single Living Arrangements: "rents a room" Employment Status: Disabled Access to guns/weapons: Denied Education: High school diploma History of Abuse: Denies Legal History: Denies ROS: Constitutional: Negative for weight loss ENT: Negative for stridor Respiratory: Negative for cough or hemoptysis All other systems reviewed and are negative MENTAL STATUS EXAMINATION General Appearance and Behavior: Age appropriate, fair hygiene, wearing appropriate clothes, good eye contact, cooperative polite with questioning. Cooperation: Participating Psychomotor Behavior: Normal Mood: Depressed Affect and affective range: incongruent, patient smiling Thought Process: Goal oriented Thought Content: Hallucinations, suicidal thoughts Speech: Normal volume, Regular rate and rhythm Suicidal Ideation: Suicidal Homicidal Ideation: Denies HI Hallucinations: Auditory Delusions: None elicited Insight and Judgment: Impaired Memory: Prospective memory impaired Attention: Distractible Orientation: Alert, oriented, anxious Assessment and Plan Psychiatric problem (1) Bipolar 2 disorder, major depressive episode Current Visit: Yes Status: Acute TREATMENT PLAN 1013 Risperidone 0.25mg po BID Trazodone 50mg po qhs Change ativan to Klonopin 0.25mg po TID Sitter: Defer to medical Medical: per medical Disposition: Recommend acute inpatient psychiatric treatment Will follow. Thank you for this consult. Medications and Allergies Allergies Allergy/AdvReac Type Severity Reaction Status Date / Time No Known Allergies Allergy Verified 03/19/20 19:21 Home Medications Medication Instructions Recorded Confirmed Last Taken Type LORazepam [Ativan] 1 mg PO TID 08/27/18 05/18/20 1 Day Ago History ~05/17/20 Gabapentin [Neurontin] 800 mg PO QID 03/20/20 05/18/20 1 Day Ago History ~05/17/20 Nitrofurantoin [place]/M-Cryst 100 mg PO BID #8 capsule 04/18/20 05/18/20 Unknown Rx [Macrobid CAP] Mental Status Exam - Vital signs Last Vital Signs Temp 98.0 F 05/19/20 07:46 Pulse 86 05/19/20 07:46 Resp 18 05/19/20 07:46 BP 135/75 05/19/20 07:46 Pulse Ox 96 05/19/20 07:46 Results Result Diagrams: 05/18/20 17:10 05/18/20 17:10 Abnormal lab results 05/18/20 05/18/20 05/18/20 Range/Units 17:10 17:10 17:10 Hgb (10.1-14.3) gm/dl Hct (30.3-42.9) % MCV (79-97) fl MCH (28-32) pg Glucose 113 H (65-100) mg/dL Salicylates < 0.3 L (2.8-20.0) mg/dL Acetaminophen 7.2 L (10.0-30.0) ug/mL 05/18/20 Range/Units 17:10 Hgb 15.3 H (10.1-14.3) gm/dl Hct 45.0 H (30.3-42.9) % MCV 98 H (79-97) fl MCH 33 H (28-32) pg Glucose (65-100) mg/dL Salicylates (2.8-20.0) mg/dL Acetaminophen (10.0-30.0) ug/mL All other labs normal.
[2020-05-19] MEDS ORDERED: risperiDONE 0.25 MG TAB PO SCH (11:30)
[2020-05-19] MEDS: GABAPENTIN 400 MG CAP PO SCH ×2 (11:35→13:29)
[2020-05-19] MEDS ORDERED: clonazePAM 0.5 MG TAB PO SCH (14:00)
[2020-05-19] MEDS ORDERED: NON-FORMULARY EACH (Gabapentin [Neurontin] 800 MG) PO SCH (14:00)
[2020-05-19] MEDS ORDERED: traZODone 50 MG TAB PO SCH (22:00)
== END 2020-05-19 16:41 ==
LOC: ED 16:19
DX: R45.851 Suicidal ideations (principal); F32.9 Major depressive disorder, single episode, unspecified; F41.9 Anxiety disorder, unspecified; F17.200 Nicotine dependence, unspecified, uncomplicated; Z98.890 Other specified postprocedural states; Z79.899 Other long term (current) drug therapy
CPT/HCPCS: 36415; 80048; 80307; 81001; 85025; 99285; U0003; 80320; G0480

== ENCOUNTER 2020-05-19 16:02 | Inpatient (IN) | payer MEDICARE ==
[2020-05-19 21:06] LABS: Chol/HDL Ratio 6.11 %; HDL Cholesterol 44 mg/dL (40-59); LDL Cholesterol,Direct TNR mg/dL (50-130)
[2020-05-19] MEDS: traZODone 50 MG TAB PO SCH (22:40)
--- NOTE | 2020-05-20 11:09 | History and Physical Report ---
GP History & Physical - History of Present Illness Date of admission: 05/19/20 Date of Examination: 05/20/20 Reason for Admission: Danger to self History of Present Illness: Rina Judge is a 55y/o female patient who is known to me from previous visits. I saw the patient initially in the ER. She presents to the hospital to day for suicidal thoughts. Yesterday she says she was "depressed and hearing voices telling me to kill myself." She denies illicit drug use, alcohol or nicotine use. During my interview today, the patient is sitting on side of the bed. She says she's "still suicidal." She denies the voices today. She says her mood is "okay." PAST PSYCHIATRIC HISTORY: Diagnoses: Bipolar, Depression Suicide attempts or Self-harm behavior: Denies Prior psychiatric hospitalizations: Twice Substance Abuse history: Denies Previous psychiatric medications tried: Ativan, Gabapentin Outpatient treatment: Yes PAST MEDICAL HISTORY: None reported Family Psychiatric History: None reported SOCIAL HISTORY Marital Status: Single Living Arrangements: "rents a room" Employment Status: Disabled Access to guns/weapons: Denied Education: High school diploma History of Abuse: Denies Legal History: Denies ROS: Constitutional: Negative for weight loss ENT: Negative for stridor Respiratory: Negative for cough or hemoptysis All other systems reviewed and are negative MENTAL STATUS EXAMINATION General Appearance and Behavior: Age appropriate, fair hygiene, wearing appropriate clothes, good eye contact, cooperative polite with questioning. Cooperation: Participating Psychomotor Behavior: Normal Mood: Depressed Affect and affective range: incongruent, patient smiling Thought Process: Goal oriented Thought Content: Hallucinations yesterda, suicidal thoughts Speech: Normal volume, Regular rate and rhythm Suicidal Ideation: Suicidal Homicidal Ideation: Denies HI Hallucinations: Auditory yesterday, denies today Delusions: None elicited Insight and Judgment: Limited Memory: Limited Attention: Limited Orientation: Alert, oriented, anxious Assessment and Plan Psychiatric problem (1) Bipolar 2 disorder, major depressive episode Current Visit: Yes Status: Acute Treatment Plan Patient admitted for inpatient psychiatric evaluation, medication adjustment and close monitoring The patient's behavior, mood, sleep and appetite will be closely monitored. Patient enrolled in individual and group therapeutic sessions and encouraged to attend. Patient provided with a safe and structured environment. Patient's physical health needs will be addressed by the Hospitalist. Hospitalist Consulted Labs including CBC, CMP, Lipid profile and Hemoglobin A1C levels ordered for baseline reference Social Assessment will be completed and the Radio Producer will work with patient and family to ensure a suitable and safe disposition Medication adjustment will be made as clinically indicated Risperidone 0.25mg po BID Trazodone 50mg po qhs Change ativan to Klonopin 0.25mg po TID Usual Wellness Mu-Ism/Preservation: - Start Trazodone 50 mg po QHS & 50 mg po QHS PRN between 10 PM & 2 AM for insomnia - Start Melatonin 5 mg po QHS to promote circadian rhythm - Start [place]-3 for brain health, reduce impulsivity, and as adjunctive treatment for mood disorder, continue upon discharge given overall benefits. - Start B1 prophylaxis with 200 mg po for 5 days This is to certify that Rina Judge was admitted to [facility] because she is expected to improve for auditory hallucinations and suicidal thoughts. Estimated days: 7 Outpatient treatment upon discharge Legal Status: Voluntary Reaction to Hospitalization: Accepting Medications and Allergies Allergies Allergy/AdvReac Type Severity Reaction Status Date / Time No Known Allergies Allergy Verified 03/19/20 19:21 Home Medications Medication Instructions Recorded Confirmed Last Taken Type LORazepam [Ativan] 1 mg PO TID 08/27/18 05/19/20 05/19/20 History Gabapentin [Neurontin] 800 mg PO QID 03/20/20 05/19/20 05/19/[address] [place]/M-Cryst 100 mg PO BID #8 capsule 04/18/20 05/19/20 05/19/20 Rx [Macrobid CAP] Active Meds: Active Medications Trazodone HCl (Desyrel) 50 mg PO QHS [facility] Last Admin: 05/19/20 22:40 Dose: 50 mg Documented by: Results - Results Labs/Vitals: Laboratory Last Values POC Glucose 107 mg/dL (70-105) H 05/19/20 20:43 Hemoglobin A1c 5.7 % (4-6) 05/19/20 19:45 Triglycerides 484 mg/dL (2-149) H 05/19/20 19:45 Cholesterol 269 mg/dL (50-199) H 05/19/20 19:45 LDL Cholesterol Direct TNR 05/19/20 19:45 HDL Cholesterol 44 mg/dL (40-59) 05/19/20 19:45 Cholesterol/HDL Ratio 6.11 % 05/19/20 19:45 TSH 2.730 mlU/mL (0.270-4.200) 05/19/20 19:45 Last Vital Signs Temp 99.0 F 05/20/20 08:39 Pulse 96 H 05/20/20 08:39 Resp 19 05/20/20 08:39 BP 126/91 05/20/20 08:39 Pulse Ox 94 05/20/20 08:39 Physical Examination - Constitutional Vitals: Vital Signs Temp Pulse Resp BP Pulse Ox 99.0 F 96 H 19 126/91 94 05/20/20 08:39 05/20/20 08:39 05/20/20 08:39 05/20/20 08:39 05/20/20 08:39 Temperature -Last 24 Hours Temperature 99.0 F Temperature 98.0 F Temperature 98.5 F Temperature 98.5 F Mental Status Exam - Vital signs Last Vital Signs Temp 99.0 F 05/20/20 08:39 Pulse 96 H 05/20/20 08:39 Resp 05/20/20 08:39 BP 126/91 05/20/20 08:39 Pulse Ox 94 05/20/20 08:39 Physician Certification - Certification Statement Physician Certification Statement: This is an acknowledgement statement that RINA JUDGE is a 55 year old F who requires inpatient psychiatric admission for treatment which could reasonably be expected to improve the patient's condition for Estimated period of time patient will need to remain in the hospital: [ ] Plan for post-hospital care: [ ]
[2020-05-20] MEDS: risperiDONE 0.25 MG TAB PO SCH ×2 (11:33→22:21)
[2020-05-20] MEDS: clonazePAM 0.5 MG TAB PO SCH ×2 (13:34→20:31)
[2020-05-20] MEDS: GABAPENTIN 400 MG CAP PO SCH ×3 (13:34→22:21)
[2020-05-20] MEDS ORDERED: clonazePAM 0.5 MG TAB PO SCH (14:00)
[2020-05-20] MEDS ORDERED: NON-FORMULARY EACH (Gabapentin [Neurontin] 800 MG) PO SCH (14:00)
--- NOTE | 2020-05-20 17:58 | Consultation ---
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 We requested to assist in her management from medical standpoint. On my review the patient denies any chest pain nausea vomiting or diarrhea she states that she does have neuropathy in her right hand but is well controlled with the gabapentin. She was unable to elaborate further on the course of the injury to her right hand. Past History Past Medical History: other (Neuropathy secondary to right hand injury) Past Surgical History: Other (Right hand surgery) Social history: no significant social history Medications and Allergies Allergies Allergy/AdvReac Type Severity Reaction Status Date / Time No Known Allergies Allergy Verified 03/19/20 19:21 Home Medications Medication Instructions Recorded Confirmed Last Taken Type LORazepam [Ativan] 1 mg PO TID 08/27/18 05/19/20 05/19/20 History Gabapentin [Neurontin] 800 mg PO QID 03/20/20 05/19/20 05/19/20 History Nitrofurantoin [place]/M-Cryst 100 mg PO BID #8 capsule 04/18/20 05/19/20 05/19/20 Rx [Macrobid CAP] Active Meds: Active Medications Clonazepam (Klonopin) 0.25 mg PO TID [facility] Last Admin: 05/20/20 13:34 Dose: 0.25 mg Documented by: Gabapentin (Gabapentin) 800 mg PO QID [facility] Last Admin: 05/20/20 17:30 Dose: 800 mg Documented by: Risperidone (Risperdal) 0.25 mg PO BID [facility] Last Admin: 05/20/20 11:33 Dose: 0.25 mg Documented by: Trazodone HCl (Desyrel) 50 mg PO QHS [facility] Last Admin: 05/19/20 22:40 Dose: 50 mg Documented by: Review of Systems All systems: negative Constitutional: no weight loss, no weight gain Cardiovascular: no orthopnea, no rapid/irregular heart beat, no edema, no syncope Respiratory: no cough, no excessive sputum, no hemoptysis Musculoskeletal: no arm numbness/tingling, no low back pain, no shooting leg pain, no leg numbness/tingling Exam - Physical Exam Narrative exam: VITAL SIGNS: Reviewed. GENERAL: The patient appears normally developed, Vital signs as documented. HEAD: No signs of head trauma. EYES: Pupils are equal. Extraocular motions intact. EARS: Hearing grossly intact. MOUTH: Oropharynx is normal. NECK: No adenopathy, no JVD. CHEST: Chest with clear breath sounds bilaterally. No wheezes, rales, or rhonchi. CARDIAC: Regular rate and rhythm. S1 and S2, without murmurs, gallops, or rubs. VASCULAR: No Edema. Peripheral pulses normal and equal in all extremities. ABDOMEN: Soft, non tender and non distended. No rebound or guarding, and no masses palpated. Bowel Sounds normal. MUSCULOSKELETAL: Good range of motion of all major joints. Extremities without clubbing, cyanosis or edema. NEUROLOGIC EXAM: Alert and oriented x 3 No focal sensory or strength deficits. Several well-healed surgical scar on the right speech normal. Follows commands. PSYCHIATRIC: Mood normal. SKIN: detail exam as documented in skin assessment - Constitutional Vitals: Temp Pulse Resp BP Pulse Ox 99.0 F 96 H 19 126/91 94 05/20/20 08:39 05/20/20 08:39 05/20/20 08:39 05/20/20 08:39 05/20/20 08:39 Results - Labs Labs: Abnormal lab results 05/19/20 05/19/20 Range/Units 19:45 20:43 POC Glucose 107 H (70-105) mg/dL Triglycerides 484 H (2-149) mg/dL Cholesterol 269 H (50-199) mg/dL Assessment and Plan 55-year-old male with bipolar and depression with neuropathy of the right hand secondary to injury Right hand neuropathy secondary to injury Depression Bipolar disorder Plan Supportive care and management per psych Continue gabapentin if dose can be obtained. Thank you for allowing us take part in the care of your patient as an information become available more therapeutic or diagnostic measures may need to implement
[2020-05-20] MEDS: traZODone 50 MG TAB PO SCH ×2 (22:21→22:26)
[2020-05-21] MEDS: clonazePAM 0.5 MG TAB PO SCH ×3 (07:54→20:47)
--- NOTE | 2020-05-21 08:19 | Progress Note ---
Subjective Date of service: 05/21/20 Principal diagnosis: Bipolar Disorder, Current epidsode Depressed Subjective Comment: The medical record was reviewed and the patient's progress was discussed with the nursing staff. The nurse note states the patient continues to think of harming herself but verbally contracts for safety. During my interview with the patient today, she was in the dayroom. The patient says she's feeling "alright." She denies hallucinations of any kind. But the patient states she still feels "suicidal." When asking was there anything in particular making her feel this way, she states "just a lot going on, different stuff." She denies having a plan. Reason for continued inpatient treatment: The patient continues to express suicidal thoughts. ROS: Constitutional: Negative for weight loss ENT: Negative for stridor Respiratory: Negative for cough or hemoptysis All other systems reviewed and are negative MENTAL STATUS EXAMINATION General Appearance and Behavior: Age appropriate, fair hygiene, wearing appropriate clothes, good eye contact, cooperative polite with questioning. Cooperation: Participating Psychomotor Behavior: Normal Mood: "alright" Affect and affective range: incongruent, patient smiling Thought Process: Goal oriented Thought Content: suicidal thoughts Speech: Normal volume, Regular rate and rhythm Suicidal Ideation: Suicidal Homicidal Ideation: Denies HI Hallucinations: Denies Delusions: None elicited Insight and Judgment: Limited Memory: Limited Attention: Limited Orientation: Alert, oriented, anxious Assessment and Plan (1) Bipolar 2 disorder, major depressive episode Current Visit: Yes Status: Acute Treatment Plan Patient admitted for inpatient psychiatric evaluation, medication adjustment and close monitoring The patient's behavior, mood, sleep and appetite will be closely monitored. Patient enrolled in individual and group therapeutic sessions and encouraged to attend. Patient provided with a safe and structured environment. Patient's physical health needs will be addressed by the Hospitalist. Hospitalist Consulted Labs including CBC, CMP, Lipid profile and Hemoglobin A1C levels ordered for baseline reference Social Assessment will be completed and the Security And Compliance Analyst will work with patient and family to ensure a suitable and safe disposition Medication adjustment will be made as clinically indicated Start Zoloft 25mg po daily Usual Wellness Congregation/Preservation: - Start Trazodone 50 mg po QHS & 50 mg po QHS PRN between 10 PM & 2 AM for insomnia - Start Melatonin 5 mg po QHS to promote circadian rhythm - Start [place]-3 for brain health, reduce impulsivity, and as adjunctive treatm ent for mood disorder, continue upon discharge given overall benefits. - Start B1 prophylaxis with 200 mg po for 5 days Estimated days: 5 Outpatient treatment upon discharge Medications and Allergies Allergies Allergy/AdvReac Type Severity Reaction Status Date / Time No Known Allergies Allergy Verified 03/19/20 19:21 Home Medications Medication Instructions Recorded Confirmed Last Taken Type LORazepam [Ativan] 1 mg PO TID 08/27/18 05/19/20 05/19/20 History Gabapentin [Neurontin] 800 mg PO QID 03/20/20 05/19/20 05/19/20 History Nitrofurantoin [place]/M-Cryst 100 mg PO BID #8 capsule 04/18/20 05/19/20 05/19/20 Rx [Macrobid CAP] Active Meds: Active Medications Clonazepam (Klonopin) 0.25 mg PO TID [facility] Last Admin: 05/21/20 07:54 Dose: 0.25 mg Documented by: Gabapentin (Gabapentin) 800 mg PO QID [facility] Last Admin: 05/20/20 22:21 Dose: 800 mg Documented by: Risperidone (Risperdal) 0.25 mg PO BID [facility] Last Admin: 05/20/20 22:21 Dose: 0.25 mg Documented by: Trazodone HCl (Desyrel) 50 mg PO QHS [facility] Last Admin: 05/20/20 22:26 Dose: Not Given Documented by: Results - Results Labs/Vitals: Laboratory Last Values POC Glucose 107 mg/dL (70-105) H 05/19/20 20:43 Hemoglobin A1c 5.7 % (4-6) 05/19/20 19:45 Triglycerides 484 mg/dL (2-149) H 05/19/20 19:45 Cholesterol 269 mg/dL (50-199) H 05/19/20 19:45 LDL Cholesterol Direct TNR 05/19/20 19:45 HDL Cholesterol 44 mg/dL (40-59) 05/19/20 19:45 Cholesterol/HDL Ratio 6.11 % 05/19/20 19:45 TSH 2.730 mlU/mL (0.270-4.200) 05/19/20 19:45 Last Vital Signs Temp 98.9 F 05/20/20 19:46 Pulse 88 05/20/20 19:46 Resp 16 05/20/20 19:46 BP 117/71 05/20/20 19:46 Pulse Ox 97 05/20/20 19:46
[2020-05-21] MEDS: GABAPENTIN 400 MG CAP PO SCH ×4 (09:23→21:18)
[2020-05-21] MEDS: SERTRALINE 25 MG TAB PO SCH (09:23)
[2020-05-21] MEDS: risperiDONE 0.25 MG TAB PO SCH ×2 (09:23→21:18)
[2020-05-21] MEDS: traZODone 50 MG TAB PO SCH (21:19)
--- NOTE | 2020-05-22 08:43 | Progress Note ---
Subjective Date of service: 05/22/20 Principal diagnosis: Bipolar Disorder, Current epidsode Depressed Subjective Comment: The medical record was reviewed and the patient's progress was discussed with the nursing staff. During my interview with the patient today, she was in the dayroom. The patient says she's feeling "okay." She denies hallucinations of any kind. But the patient states she still feels "suicidal." She says she does not take trazodone or risperidone but takes seroquel at night. Will make adjustment. Reason for continued inpatient treatment: The patient continues to express suicidal thoughts. ROS: Constitutional: Negative for weight loss ENT: Negative for stridor Respiratory: Negative for cough or hemoptysis All other systems reviewed and are negative MENTAL STATUS EXAMINATION General Appearance and Behavior: Age appropriate, fair hygiene, wearing appropriate clothes, good eye contact, cooperative polite with questioning. Cooperation: Participating Psychomotor Behavior: Normal Mood: "okay" Affect and affective range: incongruent, patient smiling Thought Process: Goal oriented Thought Content: suicidal thoughts Speech: Normal volume, Regular rate and rhythm Suicidal Ideation: Suicidal Homicidal Ideation: Denies Hallucinations: Denies Delusions: None elicited Insight and Judgment: Limited Memory: Limited Attention: Limited Orientation: Alert, oriented, anxious Assessment and Plan (1) Bipolar 2 disorder, major depressive episode Current Visit: Yes Status: Acute Treatment Plan Patient admitted for inpatient psychiatric evaluation, medication adjustment and close monitoring The patient's behavior, mood, sleep and appetite will be closely monitored. Patient enrolled in individual and group therapeutic sessions and encouraged to attend. Patient provided with a safe and structured environment. Patient's physical health needs will be addressed by the Hospitalist. Hospitalist Consulted Labs including CBC, CMP, Lipid profile and Hemoglobin A1C levels ordered for baseline reference Social Assessment will be completed and the Fishing Rod Assembler will work with p atient and family to ensure a suitable and safe disposition Medication adjustment will be made as clinically indicated Start Zoloft 25mg po daily yesrerday D/c trazodone and risperidone Start Seroquel 50mg po qhs Usual Wellness [facility]op[employer]/Preservation: - Start Trazodone 50 mg po QHS & 50 mg po QHS PRN between 10 PM & 2 AM for insomnia - Start Melatonin 5 mg po QHS to promote circadian rhythm - Start [place]-3 for brain health, reduce impulsivity, and as adjunctive treatment for mood disorder, continue upon discharge given overall benefits. - Start B1 prophylaxis with 200 mg po for 5 days Estimated days: 5 Outpatient treatment upon discharge Medications and Allergies Allergies Allergy/AdvReac Type Severity Reaction Status Date / Time No Known Allergies Allergy Verified 03/19/20 19:21 Home Medications Medication Instructions Recorded Confirmed Last Taken Type LORazepam [Ativan] 1 mg PO TID 08/27/18 05/19/20 05/19/20 History Gabapentin [Neurontin] 800 mg PO QID 03/20/20 05/19/20 05/19/20 History Nitrofurantoin [place]/M-Cryst 100 mg PO BID #8 capsule 04/18/20 05/19/20 05/19/20 Rx [Macrobid CAP] Active Meds: Active Medications Clonazepam (Klonopin) 0.25 mg PO TID [facility] Last Admin: 05/21/20 20:47 Dose: 0.25 mg Documented by: Gabapentin (Gabapentin) 800 mg PO QID [facility] Last Admin: 05/21/20 21:18 Dose: 800 mg Documented by: Sertraline HCl (Zoloft) 25 mg PO QDAY [facility] Last Admin: 05/21/20 09:23 Dose: 25 mg Documented by: Results - Results Labs/Vitals: Laboratory Last Values POC Glucose 107 mg/dL (70-105) H 05/19/20 20:43 Hemoglobin A1c 5.7 % (4-6) 05/19/20 19:45 Triglycerides 484 mg/dL (2-149) H 05/19/20 19:45 Cholesterol 269 mg/dL (50-199) H 05/19/20 19:45 LDL Cholesterol Direct TNR 05/19/20 19:45 HDL Cholesterol 44 mg/dL (40-59) 05/19/20 19:45 Cholesterol/HDL Ratio 6.11 % 05/19/20 19:45 TSH 2.730 mlU/mL (0.270-4.200) 05/19/20 19:45 Last Vital Signs Temp 98.8 F 05/21/20 19:30 Pulse 77 05/21/20 19:30 Resp 16 05/21/20 19:30 BP 108/57 05/21/20 19:30 Pulse Ox 97 05/21/20 19:30
[2020-05-22] MEDS: clonazePAM 0.5 MG TAB PO SCH ×3 (10:17→20:40)
[2020-05-22] MEDS: GABAPENTIN 400 MG CAP PO SCH ×4 (10:18→21:16)
[2020-05-22] MEDS: SERTRALINE 25 MG TAB PO SCH (10:18)
--- NOTE | 2020-05-22 12:43 | Progress Note ---
Assessment and Plan - Patient Problems (1) Neuropathy Current Visit: Yes Status: Acute Plan to address problem: Continue Neurontin, supportive care. NSAID therapy as clinically indicated (2) Bipolar 2 disorder, major depressive episode Current Visit: No Status: Acute Plan to address problem: Supportive care, continue medical management as per primary team. (3) Depression Current Visit: No Status: Acute Qualifiers: Depression Type: unspecified Qualified Code(s): F32.9 - Major depressive disorder, single episode, unspecified Plan to address problem: Continue current therapy. History Interval history: 55 YO Female with Neuropathy, Bipolar Disorder admitted to [facility] for psychiatric stabilization. No reported nursing events. Patient continues to feel depressed. Patient denies fever, chills, chest pain, productive cough. Patient reports satisfactory control of right hand pain. Hospitalist Physical - Constitutional Vitals: Temp Pulse Resp BP Pulse Ox 98.8 F 77 16 108/57 97 05/21/20 19:30 05/21/20 19:30 05/21/20 19:30 05/21/20 19:30 05/21/20 19:30 General appearance: Present: no acute distress - EENT Eyes: Present: PERRL ENT: hearing intact - Neck Neck: Present: supple - Respiratory Respiratory effort: normal Respiratory: bilateral: CTA - Cardiovascular Rhythm: regular Heart Sounds: Present: S1 & S2 - Extremities Extremities: no ischemia Peripheral Pulses: within normal limits - Abdominal General gastrointestinal: soft, non-tender, non-distended - Integumentary Integumentary: Present: clear, dry - Psychiatric Psychiatric: cooperative - Neurologic Neurologic: CNII-XII intact Results - Labs Labs: Laboratory Last Values POC Glucose 107 mg/dL (70-105) H 05/19/20 20:43 Hemoglobin A1c 5.7 % (4-6) 05/19/20 19:45 Triglycerides 484 mg/dL (2-149) H 05/19/20 19:45 Cholesterol 269 mg/dL (50-199) H 05/19/20 19:45 LDL Cholesterol Direct TNR 05/19/20 19:45 HDL Cholesterol 44 mg/dL (40-59) 05/19/20 19:45 Cholesterol/HDL Ratio 6.11 % 05/19/20 19:45 TSH 2.730 mlU/mL (0.270-4.200) 05/19/20 19:45 Sepulveda/IV: Voiding Method Toilet Active Medications - Current Medications Current Medications: Generic Name Dose Route Start Last Admin Trade Name Freq PRN Reason Stop Dose Admin Clonazepam 0.25 mg 05/20/20 14:00 05/22/20 10:17 Klonopin PO 0.25 mg TID GÉNESIS Administration Gabapentin 800 mg 05/20/20 14:00 05/22/20 10:18 Gabapentin PO 800 mg QID GÉNESIS Administration Quetiapine Fumarate 50 mg 05/22/20 22:00 Seroquel PO QHS GÉNESIS Sertraline HCl 25 mg 05/21/20 10:00 05/22/20 10:18 Zoloft PO 25 mg QDAY GÉNESIS Administration
[2020-05-22] MEDS: QUEtiapine 25 MG TAB PO SCH (21:17)
--- NOTE | 2020-05-23 07:19 | Progress Note ---
Subjective Date of service: 05/23/20 Principal diagnosis: Bipolar Disorder, Current epidsode Depressed Subjective Comment: Per Psych Nurse: 1630 Pt less anxious, no verbal outburst, has been calm, cooperative compliant with meds and participated in group activities during groups. Group ; pt was present for full duration of group. pt's interaction with peers was good. pt participated in going through various magazines and finding different positive coping skills to engage in of interest. pt received prompting once aeb pt did not have any pictures on on side of the collage and was encouraged to do so. pt stated "Awe man why?" but pt was cooperative. pt's collage included pictures of [place], coffee, creamers, and an article about being healthy. pt shared collage with the group Psych Progress HPI Since seen this a.m., endorses suicidal ideation, when asked why she is suicidal patient says she does not know why. I informed patient since she does not know why she is suicidal, I am going to send her home, patient then said she may be suicidal because it is her mom's anniversary "something like that". Reason for continuing inpatient treatment: Patient is malingering to have a place where she can be cared for and endorses SI so she can get out of her transition home. ROS: Constitutional: Negative for weight loss ENT: Negative for stridor Respiratory: Negative for cough or hemoptysis All other systems reviewed and are negative MENTAL STATUS EXAMINATION General Appearance and Behavior: Age appropriate, fair hygiene, wearing appropriate clothes, good eye contact, cooperative polite with questioning. Cooperation: Participating Psychomotor Behavior: Psychomotor normal Mood: Depressed Affect and affective range: euphoric Thought Process: Illogical Thought Content: Illogical Speech: Normal volume, Regular rate and rhythm Intellectual Functioning: Average Suicidal Ideation: Suicidal Homicidal Ideation: Denies HI Impulse Control: Impaired Insight and Judgment: Impaired Memory: Prospective memory impaired Attention: Distractible Orientation: Alert, oriented, anxious Diagnoses: Assessment and Plan - Psychiatric problem (1) Bipolar 2 disorder, major depressive episode Current Visit: Yes Status: Acute Treatment Plan Continue current meds Patient admitted for inpatient psychiatric evaluation, medication adjustment and close monitoring The patient's behavior, mood, sleep and appetite will be closely monitored. Patient enrolled in individual and group therapeutic sessions and encouraged to attend. Patient provided with a safe and structured environment. Patient's physical health needs will be addressed by the Hospitalist. Hospitalist Consulted Labs including CBC, CMP, Lipid profile and Hemoglobin A1C levels ordered for baseline reference Social Assessment will be completed and the [employer] will work with patient and family to ensure a suitable and safe disposition Medication adjustment will be made as clinically indicated Usual Wellness Mandaeism/Preservation: - Start Trazodone 50 mg po QHS & 50 mg po QHS PRN between 10 PM & 2 AM for insomnia - Start Melatonin 5 mg po QHS to promote circadian rhythm - Start [place]-3 for brain health, reduce impulsivity, and as adjunctive treatment for mood disorder, continue upon discharge given overall benefits. - Start B1 prophylaxis with 200 mg po for 5 days The patient agreed on the treatment plan, understood the risk, benefit, alternative treatment, potential consequence of no treatment, and gave informed consent. Initial Certification Inpatient psych services: I certify that the inpatient psychiatric services are required for treatment that could reasonably be expected to improve the patient's condition. Estimated days: 4 Post hospital care: primary care provider, psychiatric provider Medications and Allergies Allergies Allergy/AdvReac Type Severity Reaction Status Date / Time No Known Allergies Allergy Verified 03/19/20 19:21 Home Medications Medication Instructions Recorded Confirmed Last Taken Type LORazepam [Ativan] 1 mg PO TID 08/27/18 05/19/20 05/19/20 History Gabapentin [Neurontin] 800 mg PO QID 03/20/20 05/19/20 05/19/20 History Nitrofurantoin [place]/M-Cryst 100 mg PO BID #8 capsule 04/18/20 05/19/20 05/19/20 Rx [Macrobid CAP] Active Meds: Active Medications Clonazepam (Klonopin) 0.25 mg PO TID [facility] Last Admin: 05/22/20 20:40 Dose: 0.25 mg Documented by: Gabapentin (Gabapentin) 800 mg PO QID [facility] Last Admin: 05/22/20 21:16 Dose: 800 mg Documented by: Quetiapine Fumarate (Seroquel) 50 mg PO QHS [facility] Last Admin: 05/22/20 21:17 Dose: 50 mg Documented by: Sertraline HCl (Zoloft) 25 mg PO QDAY [facility] Last Admin: 05/22/20 10:18 Dose: 25 mg Documented by: Results - Results Labs/Vitals: Laboratory Last Values POC Glucose 107 mg/dL (70-105) H 05/19/20 20:43 Hemoglobin A1c 5.7 % (4-6) 05/19/20 19:45 Triglycerides 484 mg/dL (2-149) H 05/19/20 19:45 Cholesterol 269 mg/dL (50-199) H 05/19/20 19:45 LDL Cholesterol Direct TNR 05/19/20 19:45 HDL Cholesterol 44 mg/dL (40-59) 05/19/20 19:45 Cholesterol/HDL Ratio 6.11 % 05/19/20 19:45 TSH 2.730 mlU/mL (0.270-4.200) 05/19/20 19:45 Last Vital Signs Temp 98.8 F 05/21/20 19:30 Pulse 77 05/21/20 19:30 Resp 16 05/21/20 19:30 BP 108/57 05/21/20 19:30 Pulse Ox 97 05/21/20 19:30
[2020-05-23] MEDS: GABAPENTIN 400 MG CAP PO SCH ×4 (10:02→21:16)
[2020-05-23] MEDS: clonazePAM 0.5 MG TAB PO SCH ×3 (10:02→20:53)
[2020-05-23] MEDS: SERTRALINE 25 MG TAB PO SCH (10:02)
[2020-05-23] MEDS: QUEtiapine 25 MG TAB PO SCH (21:16)
--- NOTE | 2020-05-24 08:18 | Progress Note ---
Subjective Date of service: 05/24/20 Principal diagnosis: Bipolar Disorder, Current epidsode Depressed Subjective Comment: Per Psych Nurse: Patient has spent the day interacting with her peers in the activity room. She has participated in groups and treatment. Patient is not getting along with a male peer because he is helping himself to other people's trays. She became upset one time today when her medication was 30 minutes past when she thought it should be given. Will continue to monitor patient for safety. Psych Progress HPI Patient seen and interviewed this a.m., patient reports improved mood today, denies having nightmares or hearing voices and seeing things. Patient denies SI and HI today. Reason for continuing inpatient treatment: Patient is malingering to have a place where she can be cared for and endorses SI so she can get out of her transition home. ROS: Constitutional: Negative for weight loss ENT: Negative for stridor Respiratory: Negative for cough or hemoptysis All other systems reviewed and are negative MENTAL STATUS EXAMINATION General Appearance and Behavior: Age appropriate, fair hygiene, wearing appropriate clothes, good eye contact, cooperative polite with questioning. Cooperation: Participating Psychomotor Behavior: Psychomotor normal Mood: Depressed Affect and affective range: euphoric Thought Process: Illogical Thought Content: Illogical Speech: Normal volume, Regular rate and rhythm Intellectual Functioning: Average Suicidal Ideation: Suicidal Homicidal Ideation: Denies HI Impulse Control: Impaired Insight and Judgment: Impaired Memory: Prospective memory impaired Attention: Distractible Orientation: Alert, oriented, anxious Diagnoses: Assessment and Plan - Psychiatric problem (1) Bipolar 2 disorder, major depressive episode Current Visit: Yes Status: Acute Treatment Plan Continue current meds Patient admitted for inpatient psychiatric evaluation, medication adjustment and close monitoring The patient's behavior, mood, sleep and appetite will be closely monitored. Patient enrolled in individual and group therapeutic sessions and encouraged to attend. Patient provided with a safe and structured environment. Patient's physical health needs will be addressed by the Hospitalist. Hospitalist Consulted Labs including CBC, CMP, Lipid profile and Hemoglobin A1C levels ordered for baseline reference Social Assessment will be completed and the Director Of Academic Support will work with pa tient and family to ensure a suitable and safe disposition Medication adjustment will be made as clinically indicated Usual Wellness Yarsani/Preservation: - Start Trazodone 50 mg po QHS & 50 mg po QHS PRN between 10 PM & 2 AM for insomnia - Start Melatonin 5 mg po QHS to promote circadian rhythm - Start [place]-3 for brain health, reduce impulsivity, and as adjunctive treatment for mood disorder, continue upon discharge given overall benefits. - Start B1 prophylaxis with 200 mg po for 5 days The patient agreed on the treatment plan, understood the risk, benefit, alternative treatment, potential consequence of no treatment, and gave informed consent. Initial Certification Inpatient psych services: I certify that the inpatient psychiatric services are required for treatment that could reasonably be expected to improve the patient's condition. Estimated days: 3 Post hospital care: primary care provider, psychiatric provider Medications and Allergies Allergies Allergy/AdvReac Type Severity Reaction Status Date / Time No Known Allergies Allergy Verified 03/19/20 19:21 Home Medications Medication Instructions Recorded Confirmed Last Taken Type LORazepam [Ativan] 1 mg PO TID 08/27/18 05/19/20 05/19/20 History Gabapentin [Neurontin] 800 mg PO QID 03/20/20 05/19/20 05/19/20 History Nitrofurantoin [place]/M-Cryst 100 mg PO BID #8 capsule 04/18/20 05/19/20 05/19/20 Rx [Macrobid CAP] Active Meds: Active Medications Clonazepam (Klonopin) 0.25 mg PO TID [facility] Last Admin: 05/23/20 20:53 Dose: 0.25 mg Documented by: Gabapentin (Gabapentin) 800 mg PO QID [facility] Last Admin: 05/23/20 21:16 Dose: 800 mg Documented by: Quetiapine Fumarate (Seroquel) 50 mg PO QHS [facility] Last Admin: 05/23/20 21:16 Dose: 50 mg Documented by: Sertraline HCl (Zoloft) 25 mg PO QDAY [facility] Last Admin: 05/23/20 10:02 Dose: 25 mg Documented by: Results - Results Labs/Vitals: Laboratory Last Values POC Glucose 107 mg/dL (70-105) H 05/19/20 20:43 Hemoglobin A1c 5.7 % (4-6) 05/19/20 19:45 Triglycerides 484 mg/dL (2-149) H 05/19/20 19:45 Cholesterol 269 mg/dL (50-199) H 05/19/20 19:45 LDL Cholesterol Direct TNR 05/19/20 19:45 HDL Cholesterol 44 mg/dL (40-59) 05/19/20 19:45 Cholesterol/HDL Ratio 6.11 % 05/19/20 19:45 TSH 2.730 mlU/mL (0.270-4.200) 05/19/20 19:45 Last Vital Signs Temp 98.3 F 05/23/20 22:43 Pulse 71 05/23/20 22:43 Resp 18 05/23/20 22:43 BP 125/55 05/23/20 22:43 Pulse Ox 97 05/23/20 22:43
[2020-05-24] MEDS: GABAPENTIN 400 MG CAP PO SCH ×4 (10:06→21:03)
[2020-05-24] MEDS: SERTRALINE 25 MG TAB PO SCH (10:06)
[2020-05-24] MEDS: clonazePAM 0.5 MG TAB PO SCH ×3 (11:18→20:20)
[2020-05-24] MEDS: QUEtiapine 25 MG TAB PO SCH (21:02)
--- NOTE | 2020-05-25 08:31 | Progress Note ---
Subjective Date of service: 05/25/20 Principal diagnosis: Bipolar Disorder, Current epidsode Depressed Subjective Comment: Per Psych Nurse: Patient had uneventful day, no verbal or physical behavioral disturbances noted. Pt has been calm, cooperative with staff and peers, compliant with meds. No distress noted, will continue to monitor. Psych Progress HPI Today Ms. Judge says she feels good and better today, denies hearing voices, denies suicidal thoughts or depressed episodes, says her mood has been stable and she is taking all of her medication without complaints today. Reason for continuing inpatient treatment: Patient is malingering to have a place where she can be cared for and endorses SI so she can get out of her transition home. ROS: Constitutional: Negative for weight loss ENT: Negative for stridor Respiratory: Negative for cough or hemoptysis All other systems reviewed and are negative MENTAL STATUS EXAMINATION General Appearance and Behavior: Age appropriate, fair hygiene, wearing appropriate clothes, good eye contact, cooperative polite with questioning. Cooperation: Participating Psychomotor Behavior: Psychomotor normal Mood: "i feel better" Affect and affective range: euphoric Thought Process: llogical Thought Content: logical Speech: Normal volume, Regular rate and rhythm Intellectual Functioning: Average Suicidal Ideation: denies Homicidal Ideation: Denies HI Impulse Control: Impaired Insight and Judgment: Impaired Memory: Prospective memory impaired Attention: Distractible Orientation: Alert, oriented, anxious Diagnoses: Assessment and Plan - Psychiatric problem (1) Bipolar 2 disorder, major depressive episode Current Visit: Yes Status: Acute Treatment Plan Continue current meds Patient admitted for inpatient psychiatric evaluation, medication adjustment and close monitoring The patient's behavior, mood, sleep and appetite will be closely monitored. Patient enrolled in individual and group therapeutic sessions and encouraged to attend. Patient provided with a safe and structured environment. Patient's physical health needs will be addressed by the Hospitalist. Hospitalist Consulted Labs including CBC, CMP, Lipid profile and Hemoglobin A1C levels ordered for baseline reference Social Assessment will be completed and the Electric Crane Operator will work with patient and family to ensure a suitable and safe disposition Medication adjustment will be made as clinically indicated Usual Wellness Confucianism/Preservation: - Start Trazodone 50 mg po QHS & 50 mg po QHS PRN between 10 PM & 2 AM for insomnia - Start Melatonin 5 mg po QHS to promote circadian rhythm - Start [place]-3 for brain health, reduce impulsivity, and as adjunctive treatment for mood disorder, continue upon discharge given overall benefits. - Start B1 prophylaxis with 200 mg po for 5 days The patient agreed on the treatment plan, understood the risk, benefit, alternative treatment, potential consequence of no treatment, and gave informed consent. Initial Certification Inpatient psych services: I certify that the inpatient psychiatric services are required for treatment that could reasonably be expected to improve the patient's condition. Estimated days: 2 Post hospital care: primary care provider, psychiatric provider Medications and Allergies Allergies Allergy/AdvReac Type Severity Reaction Status Date / Time No Known Allergies Allergy Verified 03/19/20 19:21 Home Medications Medication Instructions Recorded Confirmed Last Taken Type LORazepam [Ativan] 1 mg PO TID 08/27/18 05/19/20 05/19/20 History Gabapentin [Neurontin] 800 mg PO QID 03/20/20 05/19/20 05/19/20 History Nitrofurantoin [place]/M-Cryst 100 mg PO BID #8 capsule 04/18/20 05/19/20 05/19/20 Rx [Macrobid CAP] Active Meds: Active Medications Clonazepam (Klonopin) 0.25 mg PO TID [facility] Last Admin: 05/24/20 20:20 Dose: 0.25 mg Documented by: Gabapentin (Gabapentin) 800 mg PO QID [facility] Last Admin: 05/24/20 21:03 Dose: 800 mg Documented by: Quetiapine Fumarate (Seroquel) 50 mg PO QHS [facility] Last Admin: 05/24/20 21:02 Dose: 50 mg Documented by: Sertraline HCl (Zoloft) 25 mg PO QDAY [facility] Last Admin: 05/24/20 10:06 Dose: 25 mg Documented by: Results - Results Labs/Vitals: Laboratory Last Values POC Glucose 107 mg/dL (70-105) H 05/19/20 20:43 Hemoglobin A1c 5.7 % (4-6) 05/19/20 19:45 Triglycerides 484 mg/dL (2-149) H 05/19/20 19:45 Cholesterol 269 mg/dL (50-199) H 05/19/20 19:45 LDL Cholesterol Direct TNR 05/19/20 19:45 HDL Cholesterol 44 mg/dL (40-59) 05/19/20 19:45 Cholesterol/HDL Ratio 6.11 % 05/19/20 19:45 TSH 2.730 mlU/mL (0.270-4.200) 05/19/20 19:45 Last Vital Signs Temp 98.5 F 05/25/20 08:09 Pulse 68 05/25/20 08:09 Resp 18 05/25/20 08:09 BP 114/56 05/25/20 08:09 Pulse Ox 93 05/25/20 08:09
[2020-05-25] MEDS: SERTRALINE 25 MG TAB PO SCH (09:29)
[2020-05-25] MEDS: clonazePAM 0.5 MG TAB PO SCH ×3 (09:29→20:10)
[2020-05-25] MEDS: GABAPENTIN 400 MG CAP PO SCH ×4 (09:29→21:17)
[2020-05-25] MEDS: QUEtiapine 25 MG TAB PO SCH (21:17)
--- NOTE | 2020-05-26 07:37 | Progress Note ---
Subjective Date of service: 05/26/20 Principal diagnosis: Bipolar Disorder, Current epidsode Depressed Subjective Comment: Per Psych Nurse: Pt active and visible on the unit and observed interacts appropriate with peers and sleep. Complies with tx regimens. No acute distress or behavioral issue noted. Rested w/o incident overnight. Pt received in day room interacting appropriately with peers. Denies pain, Si or HI. No acute distress observed and none reported. Will continue to monitor. Psych Progress HPI Patient seen this AM, Patient describes a good and stable mood, denies being depressed or excessively nervous. Patient eats and sleeps well. Patient denies panic attacks, recurrent nightmares or flashbacks. Patient denies symptoms suggestive of OCD or PTSD. Patient denies hallucinations, paranoia, thought interference and no features suggestive of hypomania or miroslava. She completely denies suicidal or homicidal thoughts. Reason for continuing inpatient treatment: Patient denies any acute symptoms, start planning for safety discharge. ROS: Constitutional: Negative for weight loss ENT: Negative for stridor Respiratory: Negative for cough or hemoptysis All other systems reviewed and are negative MENTAL STATUS EXAMINATION General Appearance and Behavior: Age appropriate, fair hygiene, wearing appropriate clothes, good eye contact, cooperative polite with questioning. Cooperation: Participating Psychomotor Behavior: Psychomotor normal Mood: "i feel better" Affect and affective range: euphoric Thought Process: logical Thought Content: logical Speech: Normal volume, Regular rate and rhythm Intellectual Functioning: Average Suicidal Ideation: denies Homicidal Ideation: Denies HI Impulse Control: Impaired Insight and Judgment: Impaired Memory: Prospective memory impaired Attention: Distractible Orientation: Alert, oriented, anxious Diagnoses: Assessment and Plan - Psychiatric problem (1) Bipolar 2 disorder, major depressive episode Current Visit: Yes Status: Acute Treatment Plan Continue current meds Patient admitted for inpatient psychiatric evaluation, medication adjustment and close monitoring The patient's behavior, mood, sleep and appetite will be closely monitored. Patient enrolled in individual and group therapeutic sessions and encouraged to attend. Patient provided with a safe and structured environment. Patient's physical health needs will be addressed by the Hospitalist. Hospitalist Consulted Labs including CBC, CMP, Lipid profile and Hemoglobin A1C levels ordered for baseline reference Social Assessment will be completed and the Clerical Order Filler will work with patient and family to ensure a suitable and safe disposition Medication adjustment will be made as clinically indicated Usual Wellness Spiritism/Preservation: - Start Trazodone 50 mg po QHS & 50 mg po QHS PRN between 10 PM & 2 AM for insomnia - Start Melatonin 5 mg po QHS to promote circadian rhythm - Start [place]-3 for brain health, reduce impulsivity, and as adjunctive treatment for mood disorder, continue upon discharge given overall benefits. - Start B1 prophylaxis with 200 mg po for 5 days The patient agreed on the treatment plan, understood the risk, benefit, alternative treatment, potential consequence of no treatment, and gave informed consent. Initial Certification Inpatient psych services: I certify that the inpatient psychiatric services are required for treatment that could reasonably be expected to improve the patient's condition. Estimated days: 1 Post hospital care: primary care provider, psychiatric provider Medications and Allergies Allergies Allergy/AdvReac Type Severity Reaction Status Date / Time No Known Allergies Allergy Verified 03/19/20 19:21 Home Medications Medication Instructions Recorded Confirmed Last Taken Type LORazepam [Ativan] 1 mg PO TID 08/27/18 05/19/20 05/19/20 History Gabapentin [Neurontin] 800 mg PO QID 03/20/20 05/19/20 05/19/20 History Nitrofurantoin [place]/M-Cryst 100 mg PO BID #8 capsule 04/18/20 05/19/20 05/19/20 Rx [Macrobid CAP] Active Meds: Active Medications Clonazepam (Klonopin) 0.25 mg PO TID [facility] Last Admin: 05/25/20 20:10 Dose: 0.25 mg Documented by: Gabapentin (Gabapentin) 800 mg PO QID [facility] Last Admin: 05/25/20 21:17 Dose: 800 mg Documented by: Quetiapine Fumarate (Seroquel) 50 mg PO QHS [facility] Last Admin: 05/25/20 21:17 Dose: 50 mg Documented by: Sertraline HCl (Zoloft) 25 mg PO QDAY [facility] Last Admin: 05/25/20 09:29 Dose: 25 mg Documented by: Results - Results Labs/Vitals: Laboratory Last Values POC Glucose 107 mg/dL (70-105) H 05/19/20 20:43 Hemoglobin A1c 5.7 % (4-6) 05/19/20 19:45 Triglycerides 484 mg/dL (2-149) H 05/19/20 19:45 Cholesterol 269 mg/dL (50-199) H 05/19/20 19:45 LDL Cholesterol Direct TNR 05/19/20 19:45 HDL Cholesterol 44 mg/dL (40-59) 05/19/20 19:45 Cholesterol/HDL Ratio 6.11 % 05/19/20 19:45 TSH 2.730 mlU/mL (0.270-4.200) 05/19/20 19:45 Last Vital Signs Temp 98.5 F 05/25/20 18:23 Pulse 60 05/25/20 18:23 Resp 18 05/25/20 18:23 BP 103/63 05/25/20 18:23 Pulse Ox 97 05/25/20 18:23
[2020-05-26] MEDS: GABAPENTIN 400 MG CAP PO SCH ×4 (10:04→21:16)
[2020-05-26] MEDS: SERTRALINE 25 MG TAB PO SCH (10:05)
[2020-05-26] MEDS: clonazePAM 0.5 MG TAB PO SCH ×3 (10:05→20:32)
--- NOTE | 2020-05-26 11:31 | Progress Note ---
Assessment and Plan - Patient Problems (1) Neuropathy Current Visit: Yes Status: Acute Plan to address problem: Continue Neurontin, supportive care. NSAID therapy as clinically indicated (2) Bipolar 2 disorder, major depressive episode Current Visit: No Status: Acute Plan to address problem: Supportive care, continue medical management as per primary team. (3) Depression Current Visit: No Status: Acute Qualifiers: Depression Type: unspecified Qualified Code(s): F32.9 - Major depressive disorder, single episode, unspecified Plan to address problem: Continue current therapy. History Interval history: 55 YO Female with Neuropathy, Bipolar Disorder admitted to [facility] for psychiatric stabilization. No reported nursing events. Patient continues to feel depressed. Patient denies fever, chills, chest pain, productive cough. Patient reports satisfactory control of right hand pain. Hospitalist Physical - Constitutional Vitals: Temp Pulse Resp BP Pulse Ox 98.9 F 65 18 107/67 96 05/26/20 08:37 05/26/20 08:37 05/26/20 08:37 05/26/20 08:37 05/26/20 08:37 General appearance: Present: no acute distress - EENT Eyes: Present: PERRL, EOM intact ENT: hearing intact - Neck Neck: Present: supple - Respiratory Respiratory effort: normal Respiratory: bilateral: CTA - Cardiovascular Rhythm: regular - Extremities Extremities: no ischemia Peripheral Pulses: within normal limits - Abdominal General gastrointestinal: soft, non-tender, non-distended - Integumentary Integumentary: Present: clear, dry - Psychiatric Psychiatric: cooperative - Neurologic Neurologic: CNII-XII intact Results - Labs Labs: Laboratory Last Values POC Glucose 107 mg/dL (70-105) H 05/19/20 20:43 Hemoglobin A1c 5.7 % (4-6) 05/19/20 19:45 Triglycerides 484 mg/dL (2-149) H 05/19/20 19:45 Cholesterol 269 mg/dL (50-199) H 05/19/20 19:45 LDL Cholesterol Direct TNR 05/19/20 19:45 HDL Cholesterol 44 mg/dL (40-59) 05/19/20 19:45 Cholesterol/HDL Ratio 6.11 % 05/19/20 19:45 TSH 2.730 mlU/mL (0.270-4.200) 11/09/20 19:45 Sepulveda/IV: Voiding Method Toilet Active Medications - Current Medications Current Medications: Generic Name Dose Route Start Last Admin Trade Name Freq PRN Reason Stop Dose Admin Clonazepam 0.25 mg 05/20/20 14:00 05/26/20 10:05 Klonopin PO 0.25 mg TID GÉNESIS Administration Gabapentin 800 mg 05/20/20 14:00 05/26/20 10:04 Gabapentin PO 800 mg QID GÉNESIS Administration Quetiapine Fumarate 50 mg 05/22/20 22:00 05/25/20 21:17 Seroquel PO 50 mg QHS GÉNESIS Administration Sertraline HCl 25 mg 05/21/20 10:00 05/26/20 10:05 Zoloft PO 25 mg QDAY GÉNESIS Administration Nutrition/Malnutrition Assess - Dietary Evaluation Nutrition/Malnutrition Findings: Nutrition Notes Start: 05/26/20 09:19 Freq: Status: Active Protocol: Document 05/26/20 09:19 KASIA (Rec: 05/26/20 09:20 KASIA [id number]) Nutrition Notes Need for Assessment generated from: LOS Other Pertinent Diagnosis Depression, bipolar disorder Current Diet Regular Subjective/Other Information Screen for LOS. Per chart, pt is consuming 100% of meals. Nutrition Intervention Revisit per MD consult or patient Sign Off request:
--- NOTE | 2020-05-26 11:32 | Progress Note ---
Assessment and Plan - Patient Problems (1) Neuropathy Current Visit: Yes Status: Acute Plan to address problem: Continue Neurontin, supportive care. NSAID therapy as clinically indicated (2) Bipolar 2 disorder, major depressive episode Current Visit: No Status: Acute Plan to address problem: Supportive care, continue medical management as per primary team. (3) Depression Current Visit: No Status: Acute Qualifiers: Depression Type: unspecified Qualified Code(s): F32.9 - Major depressive disorder, single episode, unspecified Plan to address problem: Continue current therapy. History Interval history: 55 YO Female with Neuropathy, Bipolar Disorder admitted to [facility] for psychiatric stabilization. No reported nursing events. Patient denies fever, chills, chest pain, productive cough. Patient reports satisfactory control of right hand pain. Hospitalist Physical - Constitutional Vitals: Temp Pulse Resp BP Pulse Ox 98.9 F 65 18 107/67 96 05/26/20 08:37 05/26/20 08:37 05/26/20 08:37 05/26/20 08:37 05/26/20 08:37 General appearance: Present: no acute distress - EENT Eyes: Present: PERRL, EOM intact ENT: hearing intact - Neck Neck: Present: supple - Respiratory Respiratory effort: normal Respiratory: bilateral: CTA - Cardiovascular Rhythm: regular Heart Sounds: Present: S1 & S2 Peripheral Pulses: within normal limits - Abdominal General gastrointestinal: soft, non-tender, non-distended - Integumentary Integumentary: Present: clear, dry - Psychiatric Psychiatric: appropriate mood/affect, cooperative - Neurologic Neurologic: CNII-XII intact Results - Labs Labs: Laboratory Last Values POC Glucose 107 mg/dL (70-105) H 05/19/20 20:43 Hemoglobin A1c 5.7 % (4-6) 05/19/20 19:45 Triglycerides 484 mg/dL (2-149) H 05/19/20 19:45 Cholesterol 269 mg/dL (50-199) H 05/19/20 19:45 LDL Cholesterol Direct TNR 05/19/20 19:45 HDL Cholesterol 44 mg/dL (40-59) 05/19/20 19:45 Cholesterol/HDL Ratio 6.11 % 05/19/20 19:45 TSH 2.730 mlU/mL (0.270-4.200) 05/19/20 19:45 Sepulveda/IV: Voiding Method Toilet Active Medications - Current Medications Current Medications: Generic Name Dose Route Start Last Admin Trade Name Freq PRN Reason Stop Dose Admin Clonazepam 0.25 mg 05/20/20 14:00 05/26/20 10:05 Klonopin PO 0.25 mg TID GÉNESIS Administration Gabapentin 800 mg 05/20/20 14:00 05/26/20 10:04 Gabapentin PO 800 mg QID GÉNESIS Administration Quetiapine Fumarate 50 mg 05/22/20 22:00 05/25/20 21:17 Seroquel PO 50 mg QHS GÉNESIS Administration Sertraline HCl 25 mg 05/21/20 10:00 05/26/20 10:05 Zoloft PO 25 mg QDAY GÉNESIS Administration Nutrition/Malnutrition Assess - Dietary Evaluation Nutrition/Malnutrition Findings: Nutrition Notes Start: 05/26/20 09:19 Freq: Status: Active Protocol: Document 05/26/20 09:19 KASIA (Rec: 05/26/20 09:20 KASIA [id number]) Nutrition Notes Need for Assessment generated from: LOS Other Pertinent Diagnosis Depression, bipolar disorder Current Diet Regular Subjective/Other Information Screen for LOS. Per chart, pt is consuming 100% of meals. Nutrition Intervention Revisit per MD consult or patient Sign Off request:
--- NOTE | 2020-05-26 11:32 | Progress Note ---
Assessment and Plan - Patient Problems (1) Neuropathy Current Visit: Yes Status: Acute Plan to address problem: Continue Neurontin, supportive care. NSAID therapy as clinically indicated (2) Bipolar 2 disorder, major depressive episode Current Visit: No Status: Acute Plan to address problem: Supportive care, continue medical management as per primary team. (3) Depression Current Visit: No Status: Acute Qualifiers: Depression Type: unspecified Qualified Code(s): F32.9 - Major depressive disorder, single episode, unspecified Plan to address problem: Continue current therapy. History Interval history: 55 YO Female with Neuropathy, Bipolar Disorder admitted to [facility] for psychiatric stabilization. No reported nursing events. Patient denies fever, chills, chest pain, productive cough. Patient reports satisfactory control of right hand pain. Hospitalist Physical - Constitutional Vitals: Temp Pulse Resp BP Pulse Ox 98.9 F 65 18 107/67 96 05/26/20 08:37 05/26/20 08:37 05/26/20 08:37 05/26/20 08:37 05/26/20 08:37 General appearance: Present: no acute distress - EENT Eyes: Present: PERRL, EOM intact - Neck Neck: Present: supple - Respiratory Respiratory effort: normal Respiratory: bilateral: CTA - Cardiovascular Rhythm: regular Heart Sounds: Present: S1 & S2 - Extremities Extremities: no ischemia Peripheral Pulses: within normal limits - Abdominal General gastrointestinal: soft, non-tender, non-distended - Integumentary Integumentary: Present: clear, dry - Psychiatric Psychiatric: cooperative - Neurologic Neurologic: CNII-XII intact Results - Labs Labs: Laboratory Last Values POC Glucose 107 mg/dL (70-105) H 05/19/20 20:43 Hemoglobin A1c 5.7 % (4-6) 05/19/20 19:45 Triglycerides 484 mg/dL (2-149) H 05/19/20 19:45 Cholesterol 269 mg/dL (50-199) H 05/19/20 19:45 LDL Cholesterol Direct TNR 05/19/20 19:45 HDL Cholesterol 44 mg/dL (40-59) 05/19/20 19:45 Cholesterol/HDL Ratio 6.11 % 05/19/20 19:45 TSH 2.730 mlU/mL (0.270-4.200) 05/19/20 19:45 Sepulveda/IV: Voiding Method Toilet Active Medications - Current Medications Current Medications: Generic Name Dose Route Start Last Admin Trade Name Freq PRN Reason Stop Dose Admin Clonazepam 0.25 mg 05/20/20 14:00 05/26/20 10:05 Klonopin PO 0.25 mg TID GÉNESIS Administration Gabapentin 800 mg 05/20/20 14:00 05/26/20 10:04 Gabapentin PO 800 mg QID GÉNESIS Administration Quetiapine Fumarate 50 mg 05/22/20 22:00 05/25/20 21:17 Seroquel PO 50 mg QHS GÉNESIS Administration Sertraline HCl 25 mg 05/21/20 10:00 05/26/20 10:05 Zoloft PO 25 mg QDAY GÉNESIS Administration Nutrition/Malnutrition Assess - Dietary Evaluation Nutrition/Malnutrition Findings: Nutrition Notes Start: 05/26/20 09:19 Freq: Status: Active Protocol: Document 05/26/20 09:19 KASIA (Rec: 05/26/20 09:20 KASIA [id number]) Nutrition Notes Need for Assessment generated from: LOS Other Pertinent Diagnosis Depression, bipolar disorder Current Diet Regular Subjective/Other Information Screen for LOS. Per chart, pt is consuming 100% of meals. Nutrition Intervention Revisit per MD consult or patient Sign Off request:
--- NOTE | 2020-05-26 21:10 | Progress Note ---
Assessment and Plan - Patient Problems (1) Neuropathy Current Visit: Yes Status: Acute Plan to address problem: Continue Neurontin, supportive care. NSAID therapy as clinically indicated (2) Bipolar 2 disorder, major depressive episode Current Visit: No Status: Acute Plan to address problem: Supportive care, continue medical management as per primary team. (3) Depression Current Visit: No Status: Acute Qualifiers: Depression Type: unspecified Qualified Code(s): F32.9 - Major depressive disorder, single episode, unspecified Plan to address problem: Continue current therapy. History Interval history: 55 YO Female with Neuropathy, Bipolar Disorder admitted to [facility] for psychiatric stabilization. No reported nursing events. Patient denies fever, chills, chest pain, productive cough. Patient reports satisfactory control of right hand pain. Hospitalist Physical - Constitutional Vitals: Temp Pulse Resp BP Pulse Ox 98.9 F 65 18 107/67 96 05/26/20 08:37 05/26/20 08:37 05/26/20 08:37 05/26/20 08:37 05/26/20 08:37 General appearance: Present: no acute distress - EENT Eyes: Present: PERRL ENT: hearing intact - Neck Neck: Present: supple - Respiratory Respiratory: bilateral: CTA - Cardiovascular Rhythm: regular Heart Sounds: Present: S1 & S2 - Extremities Extremities: no ischemia Peripheral Pulses: within normal limits - Abdominal General gastrointestinal: soft, non-tender, non-distended - Integumentary Integumentary: Present: clear, dry - Psychiatric Psychiatric: cooperative - Neurologic Neurologic: CNII-XII intact Results - Labs Labs: Laboratory Last Values POC Glucose 107 mg/dL (70-105) H 05/19/20 20:43 Hemoglobin A1c 5.7 % (4-6) 05/19/20 19:45 Triglycerides 484 mg/dL (2-149) H 05/19/20 19:45 Cholesterol 269 mg/dL (50-199) H 05/19/20 19:45 LDL Cholesterol Direct TNR 05/19/20 19:45 HDL Cholesterol 44 mg/dL (40-59) 05/19/20 19:45 Cholesterol/HDL Ratio 6.11 % 05/19/20 19:45 TSH 2.730 mlU/mL (0.270-4.200) 05/19/20 19:45 Sepulveda/IV: Voiding Method Toilet Active Medications - Current Medications Current Medications: Generic Name Dose Route Start Last Admin Trade Name Freq PRN Reason Stop Dose Admin Clonazepam 0.25 mg 05/20/20 14:00 05/26/20 20:32 Klonopin PO 0.25 mg TID GÉNESIS Administration Gabapentin 800 mg 05/20/20 14:00 05/26/20 18:08 Gabapentin PO 800 mg QID GÉNESIS Administration Quetiapine Fumarate 50 mg 05/22/20 22:00 05/25/20 21:17 Seroquel PO 50 mg QHS GÉNESIS Administration Sertraline HCl 25 mg 05/21/20 10:00 05/26/20 10:05 Zoloft PO 25 mg QDAY GÉNESIS Administration Nutrition/Malnutrition Assess - Dietary Evaluation Nutrition/Malnutrition Findings: Nutrition Notes Start: 05/26/20 09:19 Freq: Status: Active Protocol: Document 05/26/20 09:19 KASIA (Rec: 05/26/20 09:20 KASIA [id number]) Nutrition Notes Need for Assessment generated from: LOS Other Pertinent Diagnosis Depression, bipolar disorder Current Diet Regular Subjective/Other Information Screen for LOS. Per chart, pt is consuming 100% of meals. Nutrition Intervention Revisit per MD consult or patient Sign Off request:
[2020-05-26] MEDS: QUEtiapine 25 MG TAB PO SCH (21:16)
--- NOTE | 2020-05-27 07:41 | Progress Note ---
Subjective Date of service: 05/27/20 Principal diagnosis: Bipolar Disorder, Current epidsode Depressed Subjective Comment: Per Psych Nurse: pt spent the evening in activity room interacting and socializing with staff, alert and orientedx3, calm and cooperative, able to make needs known, good appetite, medication compliant, no complaints voiced, no distress noted, will continue to monitor for safety. Psych Progress HPI Patient reports feeling strong, better and happier today, she reports compliance with the medication denies any intrusive/abnormal thought disorder, patient denies SI HI and also denies any auditory visual hallucinations. Reason for continuing inpatient treatment: Patient denies any acute symptoms, start planning for safety discharge. ROS: Constitutional: Negative for weight loss ENT: Negative for stridor Respiratory: Negative for cough or hemoptysis All other systems reviewed and are negative MENTAL STATUS EXAMINATION General Appearance and Behavior: Age appropriate, fair hygiene, wearing appropriate clothes, good eye contact, cooperative polite with questioning. Cooperation: Participating Psychomotor Behavior: Psychomotor normal Mood: "i feel better" Affect and affective range: euphoric Thought Process: logical Thought Content: logical Speech: Normal volume, Regular rate and rhythm Intellectual Functioning: Average Suicidal Ideation: denies Homicidal Ideation: Denies HI Impulse Control: Impaired Insight and Judgment: Impaired Memory: Prospective memory impaired Attention: Distractible Orientation: Alert, oriented, anxious Diagnoses: Assessment and Plan - Psychiatric problem (1) Bipolar 2 disorder, major depressive episode Current Visit: Yes Status: Acute Treatment Plan Continue current meds Patient admitted for inpatient psychiatric evaluation, medication adjustment and close monitoring The patient's behavior, mood, sleep and appetite will be closely monitored. Patient enrolled in individual and group therapeutic sessions and encouraged to attend. Patient provided with a safe and structured environment. Patient's physical health needs will be addressed by the Hospitalist. Hospitalist Consulted Labs including CBC, CMP, Lipid profile and Hemoglobin A1C levels ordered for baseline reference Social Assessment will be completed and the Manager Progressive Care will work with patient and family to ensure a suitable and safe disposition Medication adjustment will be made as clinically indicated Usual Wellness Hindu/Preservation: - Start Trazodone 50 mg po QHS & 50 mg po QHS PRN between 10 PM & 2 AM for insomnia - Start Melatonin 5 mg po QHS to promote circadian rhythm - Start [place]-3 for brain health, reduce impulsivity, and as adjunctive treatment for mood disorder, continue upon discharge given overall benefits. - Start B1 prophylaxis with 200 mg po for 5 days The patient agreed on the treatment plan, understood the risk, benefit, alternative treatment, potential consequence of no treatment, and gave informed consent. Initial Certification Inpatient psych services: I certify that the inpatient psychiatric services are required for treatment that could reasonably be expected to improve the patient's condition. Estimated days: 1 Post hospital care: primary care provider, psychiatric provider Medications and Allergies Allergies Allergy/AdvReac Type Severity Reaction Status Date / Time No Known Allergies Allergy Verified 03/19/20 19:21 Home Medications Medication Instructions Recorded Confirmed Last Taken Type LORazepam [Ativan] 1 mg PO TID 08/27/18 05/19/20 05/19/20 History Gabapentin [Neurontin] 800 mg PO QID 03/20/20 05/19/20 05/19/20 History Nitrofurantoin [place]/M-Cryst 100 mg PO BID #8 capsule 04/18/20 05/19/20 05/19/20 Rx [Macrobid CAP] Active Meds: Active Medications Clonazepam (Klonopin) 0.25 mg PO TID [facility] Last Admin: 05/26/20 20:32 Dose: 0.25 mg Documented by: Gabapentin (Gabapentin) 800 mg PO QID [facility] Last Admin: 05/26/20 21:16 Dose: 800 mg Documented by: Quetiapine Fumarate (Seroquel) 50 mg PO QHS [facility] Last Admin: 05/26/20 21:16 Dose: 50 mg Documented by: Sertraline HCl (Zoloft) 25 mg PO QDAY [facility] Last Admin: 05/26/20 10:05 Dose: 25 mg Documented by: Results - Results Labs/Vitals: Laboratory Last Values POC Glucose 107 mg/dL (70-105) H 05/19/20 20:43 Hemoglobin A1c 5.7 % (4-6) 05/19/20 19:45 Triglycerides 484 mg/dL (2-149) H 05/19/20 19:45 Cholesterol 269 mg/dL (50-199) H 05/19/20 19:45 LDL Cholesterol Direct TNR 05/19/20 19:45 HDL Cholesterol 44 mg/dL (40-59) 05/19/20 19:45 Cholesterol/HDL Ratio 6.11 % 05/19/20 19:45 TSH 2.730 mlU/mL (0.270-4.200) 05/19/20 19:45 Last Vital Signs Temp 98.9 F 05/26/20 08:37 Pulse 65 05/26/20 08:37 Resp 18 05/26/20 08:37 BP 107/67 05/26/20 08:37 Pulse Ox 96 05/26/20 08:37
[2020-05-27] MEDS: clonazePAM 0.5 MG TAB PO SCH ×3 (08:00→20:57)
[2020-05-27] MEDS: GABAPENTIN 400 MG CAP PO SCH ×4 (09:00→21:06)
[2020-05-27] MEDS: SERTRALINE 25 MG TAB PO SCH (09:13)
[2020-05-27 20:38] VITALS: BP 104/63
[2020-05-27] MEDS: QUEtiapine 25 MG TAB PO SCH (21:05)
--- NOTE | 2020-05-28 07:39 | Progress Note ---
Subjective Date of service: 05/28/20 Principal diagnosis: Bipolar Disorder, Current epidsode Depressed Subjective Comment: Per Psych Nurse: Pt remained in the activity room interacting with peers and staff. A/o x 4 she is neat and appropriately dressed. Participates in unit activities and is compliant with routine meds. No prns given, appetite good and no complaints of pain. Pt Denies any thoughts of SI currently. No behavior issues. Will continue to monitor q 15 min for safety. Psych Progress HPI Patient describes a good and stable mood, denies being depressed or excessively nervous. Patient eats and sleeps well. Patient denies panic attacks, recurrent nightmares or flashbacks. Patient denies symptoms suggestive of OCD or PTSD. Patient denies hallucinations, paranoia, thought interference and no features suggestive of hypomania or miroslava. She completely denies suicidal or homicidal thoughts. Reason for continuing inpatient treatment: Patient denies any acute symptoms, start planning for safety discharge. ROS: Constitutional: Negative for weight loss ENT: Negative for stridor Respiratory: Negative for cough or hemoptysis All other systems reviewed and are negative MENTAL STATUS EXAMINATION General Appearance and Behavior: Age appropriate, fair hygiene, wearing appropriate clothes, good eye contact, cooperative polite with questioning. Cooperation: Participating Psychomotor Behavior: Psychomotor normal Mood: "i feel better" Affect and affective range: euphoric Thought Process: logical Thought Content: logical Speech: Normal volume, Regular rate and rhythm Intellectual Functioning: Average Suicidal Ideation: denies Homicidal Ideation: Denies HI Impulse Control: Impaired Insight and Judgment: Impaired Memory: Prospective memory impaired Attention: Distractible Orientation: Alert, oriented, anxious Diagnoses: Assessment and Plan - Psychiatric problem (1) Bipolar 2 disorder, major depressive episode Current Visit: Yes Status: Acute Treatment Plan Continue current meds Patient admitted for inpatient psychiatric evaluation, medication adjustment and close monitoring The patient's behavior, mood, sleep and appetite will be closely monitored. Patient enrolled in individual and group therapeutic sessions and encouraged to attend. Patient provided with a safe and structured environment. Patient's physical health needs will be addressed by the Hospitalist. Hospitalist Consulted Labs including CBC, CMP, Lipid profile and Hemoglobin A1C levels ordered for baseline reference Social Assessment will be completed and the [employer] Grinder Operator will work with patient and family to ensure a suitable and safe disposition Medication adjustment will be made as clinically indicated Usual Wellness [employer] Orthodox/Preservation: - Start Trazodone 50 mg po QHS & 50 mg po QHS PRN between 10 PM & 2 AM for insomnia - Start Melatonin 5 mg po QHS to promote circadian rhythm - Start [place]-3 for brain health, reduce impulsivity, and as adjunctive treatment for mood disorder, continue upon discharge given overall benefits. - Start B1 prophylaxis with 200 mg po for 5 days The patient agreed on the treatment plan, understood the risk, benefit, alternative treatment, potential consequence of no treatment, and gave informed consent. Initial Certification Inpatient psych services: I certify that the inpatient psychiatric services are required for treatment that could reasonably be expected to improve the patient's condition. Estimated days: 1 Post hospital care: primary care provider, psychiatric provider Medications and Allergies Allergies Allergy/AdvReac Type Severity Reaction Status Date / Time No Known Allergies Allergy Verified 03/19/20 19:21 Home Medications Medication Instructions Recorded Confirmed Last Taken Type LORazepam [Ativan] 1 mg PO TID 08/27/18 05/19/20 05/19/20 History Gabapentin [Neurontin] 800 mg PO QID 03/20/20 05/19/20 05/19/20 History Nitrofurantoin [place]/M-Cryst 100 mg PO BID #8 capsule 04/18/20 05/19/20 05/19/20 Rx [Macrobid CAP] Active Meds: Active Medications Clonazepam (Klonopin) 0.25 mg PO TID [facility] Last Admin: 05/27/20 20:57 Dose: 0.25 mg Documented by: Gabapentin (Gabapentin) 800 mg PO QID [facility] Last Admin: 05/27/20 21:06 Dose: 800 mg Documented by: Quetiapine Fumarate (Seroquel) 50 mg PO QHS [facility] Last Admin: 05/27/20 21:05 Dose: 50 mg Documented by: Sertraline HCl (Zoloft) 25 mg PO QDAY [facility] Last Admin: 05/27/20 09:13 Dose: 25 mg Documented by: Results - Results Labs/Vitals: Laboratory Last Values POC Glucose 107 mg/dL (70-105) H 05/19/20 20:43 Hemoglobin A1c 5.7 % (4-6) 05/19/20 19:45 Triglycerides 484 mg/dL (2-149) H 05/19/20 19:45 Cholesterol 269 mg/dL (50-199) H 05/19/20 19:45 LDL Cholesterol Direct TNR 05/19/20 19:45 HDL Cholesterol 44 mg/dL (40-59) 05/19/20 19:45 Cholesterol/HDL Ratio 6.11 % 05/19/20 19:45 TSH 2.730 mlU/mL (0.270-4.200) 05/19/20 19:45 Last Vital Signs Temp 98.5 F 05/27/20 20:19 Pulse 63 05/27/20 20:20 Resp 18 05/27/20 20:19 BP 104/63 05/27/20 20:19 Pulse Ox 98 05/27/20 20:20
--- NOTE | 2020-05-28 09:13 | Discharge Summary ---
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 The patients mood, cognition, behavior, motivation, compliance to treatment and appreciation on family/social support are improved and stabilized. At the time of discharge, the patient had no suicidal ideas, no homicidal ideas, no aggressive thoughts, no endangering behavior and no debilitating adverse effects. The patient agareed on the treatment plan, understood the risk, benefit, alternative treatment, potential consequence of no treatment, and gave informed consent. Disposition: DC-01 TO HOME OR SELFCARE Allergies/Adverse Reactions: Allergies No Known Allergies Allergy (Verified 03/19/20 19:21) Vital Signs: Last Vital Signs Temp 98.5 F 05/27/20 20:19 Pulse 63 05/27/20 20:20 Resp 18 05/27/20 20:19 BP 104/63 05/27/20 20:19 Pulse Ox 98 05/27/20 20:20 Last Lab: Laboratory Last Values POC Glucose 107 mg/dL (70-105) H 05/19/20 20:43 Hemoglobin A1c 5.7 % (4-6) 05/19/20 19:45 Triglycerides 484 mg/dL (2-149) H 05/19/20 19:45 Cholesterol 269 mg/dL (50-199) H 05/19/20 19:45 LDL Cholesterol Direct TNR 05/19/20 19:45 HDL Cholesterol 44 mg/dL (40-59) 05/19/20 19:45 Cholesterol/HDL Ratio 6.11 % 05/19/20 19:45 TSH 2.730 mlU/mL (0.270-4.200) 05/19/20 19:45 Core Measure Documentation - Palliative Care Palliative Care/ Comfort Measures: Not Applicable - Core Measures Any of the following diagnoses?: none Exam - Constitutional Vitals: Temp Pulse Resp BP Pulse Ox 98.5 F 63 18 104/63 98 05/27/20 20:19 05/27/20 20:20 05/27/20 20:19 05/27/20 20:19 05/27/20 20:20 General appearance: Present: no acute distress - EENT Eyes: Present: PERRL, EOM intact ENT: hearing intact, clear oral mucosa - Neck Neck: Present: supple, normal ROM - Respiratory Respiratory effort: normal - Abdominal Female genitourinary: Present: deferred - Integumentary Integumentary: Present: clear, warm, dry Plan Activity: no restrictions Care Plan Goals: Goals: Maintain good and stable mental health. Plan of Treatment: The patient should be compliant with medications, not to use drugs and not to drink alcohol. The patient understands that if suicidal ideas, homicidal ideas, or any endangering thoughts arise, the patient should immediately seek for emergent assistance including but not limited to crisis hot line and emergency room. Follow up with outpatient Psychiatrist and PCP within 7 - 14 days of discharge. Assessment: Maintain good and stable mental health. Plan of Treatment: The patient should be compliant with medications, not to use drugs and not to drink alcohol. The patient understands that if suicidal ideas, homicidal ideas, or any endangering thoughts arise, the patient should immediately seek for emergent assistance including but not limited to crisis hot line and emergency room. Follow up with outpatient Psychiatrist and PCP within 7 - 14 days of discharge. Follow up with: PRIMARY CARE, [Primary Care Provider] - 7 Days Prescriptions: QUEtiapine [SEROquel] 50 mg PO QHS #30 tablet Gabapentin 800 mg PO TID #90 capsule clonazePAM [KlonoPIN] 0.5 mg PO BID #60 tablet Sertraline [Zoloft] 25 mg PO QDAY #30 tablet
[2020-05-28] MEDS: clonazePAM 0.5 MG TAB PO SCH ×2 (09:53→13:27)
[2020-05-28] MEDS: SERTRALINE 25 MG TAB PO SCH (09:54)
[2020-05-28] MEDS: GABAPENTIN 400 MG CAP PO SCH ×3 (09:54→17:01)
== END 2020-05-28 17:09 | disposition home or self-care (01) | DRG 885 ==
LOC: UNDOADMIN 16:02 → 3A 16:02 → 5A 16:53
PROVIDERS: ADMIT Psychiatry & Neurology Psychiatry; ATTEND Psychiatry & Neurology Psychiatry
DX: F31.4 Bipolar disorder, current episode depressed, severe, without psychotic features (principal); G62.9 Polyneuropathy, unspecified; Z79.899 Other long term (current) drug therapy; Z79.01 Long term (current) use of anticoagulants
CPT/HCPCS: 36415; 80061; 82962; 83036; 84443; G0378

== ENCOUNTER 2020-07-17 21:57 | Emergency (ER) | payer MEDICARE ==
--- NOTE | 2020-07-18 00:04 | Event Note ---
ED Screening Note Date of service: 07/18/20 Time: 00:01 ED Screening Note: pt is a 55 y/o female who presents for complain of SI. Pt denies plan, has hx of anxiety and drepession, currently being tx with daily day program . This initial assessment/diagnostic orders/clinical plan/treatment(s) is/are subject to change based on patients health status, clinical progression and re- assessment by fellow clinical providers in the ED. Further treatment and workup at subsequent clinical providers discretion. Patient/guardian urged not to elope from the ED as their condition may be serious if not clinically assessed and managed. Initial orders include: bmp, cbc, ua, uds, tylenol, salicylates ,pysch consult
[2020-07-18 00:43] LABS: Basophils # (Auto) 0.1 K/mm3 (0.0-0.1); Basophils % (Auto) 0.7 % (0.0-1.8); Eosinophils # (Auto) 0.1 K/mm3 (0.0-0.4); Eosinophils % (Auto) 1.8 % (0.0-4.3); Hematocrit 38.6 % (30.3-42.9); Hemoglobin 13.5 gm/dl (10.1-14.3); Lymphocytes # (Auto) 2.9 K/mm3 (1.2-5.4); Lymphocytes % (Auto) 38.5 % (13.4-35.0); Mean Corpuscular HGB Conc 35 % (30-34); Mean Corpuscular Volume 97 fl (79-97); Monocytes # (Auto) 0.4 K/mm3 (0.0-0.8); Monocytes % (Auto) 4.8 % (0.0-7.3); Platelet Count 287 K/mm3 (140-440); Red Cell Distribution Width 13.8 % (13.2-15.2)
[2020-07-18 00:50] LABS: Amphetamine Screen,Urine PRESUMPTIVE NEGATIVE; Benzodiazepines Screen,Urine PRESUMPTIVE NEGATIVE; Cannabinoid Screen,Urine PRESUMPTIVE NEGATIVE; Cocaine Screen,Urine PRESUMPTIVE NEGATIVE; Methadone Screen,Urine PRESUMPTIVE NEGATIVE; Opiate Screen,Urine PRESUMPTIVE NEGATIVE
[2020-07-18 00:50] LABS: BUN/Creatinine Ratio 8; Blood Urea Nitrogen 7 mg/dL (7-17); Calcium 9.4 mg/dL (8.4-10.2); Hemolysis Index 21
[2020-07-18 00:53] LABS: Bilirubin,Urine NEG (Negative); Blood,Urine NEG (Negative); Color,Urine Straw (Yellow); Mucus,Urine FEW /HPF; Protein,Urine <15 mg/dL mg/dL (Negative); Urobilinogen,Urine < 2.0 mg/dL (<2.0)
--- NOTE | 2020-07-18 01:01 | Emergency Department Report ---
ED Psych HPI - General Chief Complaint: Psych Stated Complaint: SI Time Seen by Provider: 07/18/20 01:01 Source: patient Mode of arrival: Ambulatory - History of Present Illness Initial Comments: Patient is a 55-year-old female that presents emergency room with complaints of suicidal ideation. Patient states she has a plan to overdose on her pills. Patient states she was to take a handful of her Advair and gabapentin in order to . Patient states she is depressed. Patient states she is anxious. Patient states her symptoms been going on for several days. Patient states her symptoms are worsening. Patient denies homicidal ideations. Patient denies hallucinations. Patient states she has had this in the past. Patient states she had suicide attempts in the past. Patient denies recent travel. Patient denies recent international travel. Patient denies exposure to the novel coronavirus. Patient denies sick contacts. Patient denies fever and chills. Patient denies cough. Patient denies diarrhea. Patient denies coming in contact with anybody with symptoms of the novel coronavirus. MD Complaint: suicidal ideation, feels depressed -: Sudden Associated Psychiatric Symptoms: depression, suicidal ideation, racing thoughts History of same: Yes Quality: constant Improves With: none Worsens With: none Context: significant life stressor Associated Symptoms: denies other symptoms. denies: confusion, headache, shortness of breath, nausea, vomiting, syncope If Self Harm: admits thoughts of, has plan - Related Data Home Medications Medication Instructions Recorded Confirmed Last Taken LORazepam [Ativan] 1 mg PO TID 08/27/18 07/18/20 05/19/20 Gabapentin [Neurontin] 800 mg PO QID 03/20/20 07/18/20 05/19/20 Previous Rx's Medication Instructions Recorded Last Taken Type clonazePAM [KlonoPIN] 0.5 mg PO BID #60 tablet 05/28/20 Unknown Rx Gabapentin 800 mg PO TID #90 capsule 07/18/20 Unknown Rx QUEtiapine [SEROquel] 50 mg PO QHS #30 tablet 07/18/20 Unknown Rx Sertraline [Zoloft] 25 mg PO QDAY #30 tablet 07/18/20 Unknown Rx Allergies Allergy/AdvReac Type Severity Reaction Status Date / Time No Known Allergies Allergy Verified 03/19/20 19:21 ED Review of Systems ROS: Stated complaint: SI Other details as noted in HPI Constitutional: denies: chills, fever Eyes: denies: eye pain, eye discharge, vision change ENT: denies: ear pain, throat pain Respiratory: denies: cough, shortness of breath, wheezing Cardiovascular: denies: chest pain, palpitations Endocrine: no symptoms reported Gastrointestinal: denies: abdominal pain, nausea, diarrhea Genitourinary: denies: urgency, dysuria, discharge Musculoskeletal: denies: back pain, joint swelling, arthralgia Skin: denies: rash, lesions Neurological: denies: headache, weakness, paresthesias Psychiatric: anxiety, depression, suicidal thoughts. 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 - Surgical History Past Surgical History?: Yes Hx Cholecystectomy: No Hx Appendectomy: No Additional Surgical History: hand surgery - Family History Family history: no significant - Social History Smoking Status: Current Every Day Smoker Substance Use Type: None - Medications Home Medications: Home Medications Medication Instructions Recorded Confirmed Last Taken Type LORazepam [Ativan] 1 mg PO TID 08/27/18 07/18/20 05/19/20 History Gabapentin [Neurontin] 800 mg PO QID 03/20/20 07/18/20 05/19/20 History clonazePAM [KlonoPIN] 0.5 mg PO BID #60 tablet 05/28/20 07/18/20 Unknown Rx Gabapentin 800 mg PO TID #90 capsule 07/18/20 Unknown Rx QUEtiapine [SEROquel] 50 mg PO QHS #30 tablet 07/18/20 Unknown Rx Sertraline [Zoloft] 25 mg PO QDAY #30 tablet 07/18/20 Unknown Rx ED Physical Exam - General Limitations: No Limitations General appearance: alert, in no apparent distress - Head Head exam: Present: atraumatic, normocephalic - Eye Eye exam: Present: normal appearance - ENT ENT exam: Present: mucous membranes moist - Neck Neck exam: Present: normal inspection - Respiratory Respiratory exam: Present: normal lung sounds bilaterally. Absent: respiratory distress - Cardiovascular Cardiovascular Exam: Present: regular rate, normal rhythm. Absent: systolic murmur, diastolic murmur, rubs, gallop - GI/Abdominal GI/Abdominal exam: Present: soft, normal bowel sounds - Extremities Exam Extremities exam: Present: normal inspection - Back Exam Back exam: Present: normal inspection - Neurological Exam Neurological exam: Present: alert, oriented X3 - Psychiatric Psychiatric exam: Present: flat affect, suicidal ideation - Skin Skin exam: Present: warm, dry, intact, normal color. Absent: rash ED Course Vital Signs 07/18/20 07/18/20 07/18/20 02:47 03:50 04:30 Temperature 98.5 F 98.5 F Pulse Rate 98 H 76 Respiratory 20 18 20 Rate Blood Pressure 135/96 Blood Pressure 136/96 [Right] O2 Sat by Pulse 92 98 98 Oximetry - Reevaluation(s) Reevaluation #1: Patient is medically cleared. Patient remained in the ER as an ER hold. Patien t is final disposition will come from our psychiatry team. I discussed all results and clinical findings with patient. I discussed plan of care with patient. Patient agrees with plan of care. 07/18/20 01:18 ED Medical Decision Making - Lab Data Result diagrams: 07/18/20 00:05 07/18/20 00:05 - Medical Decision Making Patient is a 55-year-old female that presents emergency room with complaints of suicidal ideation with a plan to overdose on her medications. Patient states she has in the past. Patient had labs done. Patient's labs were essentially unremarkable. Patient did not have any physical complaints. Patient is medically cleared. Patient will remain in the ER as an ER hold until the patient is cleared from a psychiatric standpoint by our psych team. Patient's final disposition will come from our psychiatry mental health team. - Differential Diagnosis Suicidal ideation, depression, anxiety Critical care attestation.: If time is entered above; I have spent that time in minutes in the direct care of this critically ill patient, excluding procedure time. ED Disposition Clinical Impression: Suicidal ideation Disposition: DC-01 TO HOME OR SELFCARE Is pt being admited?: No Does the pt Need Aspirin: No Condition: Stable Additional Instructions: OUTPATIENT MENTAL HEALTH RESOURCES [facility], [facility] Sue Ni MD: [address] [place] [address] [place] [address] [facility]: [employer] [address] [place] [address] [place] [address] [phone] [place]: [facility] Healthcare: [address] [place] [address] [facility] [id number] [facility]: Mitchell Leary MD: [address] [facility] [address] [facility] [id number] [facility]: [address] [place], [place] [id number] [phone] [place] CRISIS AND ACCESS LINE: * Prescriptions: QUEtiapine [SEROquel] 50 mg PO QHS #30 tablet Gabapentin 800 mg PO TID #90 capsule Sertraline [Zoloft] 25 mg PO QDAY #30 tablet Referrals: PRIMARY CAREMD [Primary Care Provider] - 3-5 Days Time of Disposition: 01:18
--- NOTE | 2020-07-18 06:43 | Consultation ---
History of Present Illness - Reason for Consult Consult date: 07/18/20 Reason for consult: [facility] Requesting physician: FÉLIX GARCIA III - History of Present Psychiatric Illness Per ED Provider: Patient is a 55-year-old female that presents emergency room with complaints of suicidal ideation. Patient states she has a plan to overdose on her pills. Patient states she was to take a handful of her Advair and gabape ntin in order to . Patient states she is depressed. Patient states she is anxious. Patient states her symptoms been going on for several days. Patient states her symptoms are worsening. Patient denies homicidal ideations. Patient denies hallucinations. Patient states she has had this in the past. Patient states she had suicide attempts in the past. PSYCH HPI Patient is a 55 year old single, unemployed currently on disability 55 year old female who resides in a skilled nursing with past psychiatric history of depression and panic attacks presents to the ED with chief complaint of suicidal ideation. Patient is well-known to me from prior multiple encounters, patient was recently admitted to the [facility] psych unit and was stabilized with outpatient medication recommendation placed. Patient presents today stating that she was just feeling suicidal and does not know why, statting "she guessed she was depressed". Patient was in bed trying not to cooperate with interview. After informing patient that I will be recommending outpatient follow-up with safety plan patient then got up and walked up to me, stating she is suidical because of her mom. PAST PSYCHIATRIC HISTORY: Diagnoses: suicidal thoughts, panic attacks Suicide attempts or Self-harm behavior: Denies Prior psychiatric hospitalizations: Twice Substance Abuse history: Denies Previous psychiatric medications tried: Ativan, Gabapentin Outpatient treatment: Yes PAST MEDICAL HISTORY: None reported Family Psychiatric History None reported SOCIAL HISTORY Marital Status: Single Living Arrangements: "rents a room" Employment Status: Disabled Access to guns/weapons: Denied Education: High school diploma History of Abuse: Denies Legal History: Denies ROS: Constitutional: Negative for weight loss ENT: Negative for stridor Respiratory: Negative for cough or hemoptysis All other systems reviewed and are negative MENTAL STATUS EXAMINATION General Appearance and Behavior: Age appropriate, fair hygiene, wearing appropriate clothes, good eye contact, cooperative polite with questioning. Cooperation: Participating and Guarded Psychomotor Behavior: Psychomotor normal Mood: Depressed Affect and affective range: incongruent with mood Thought Process: Illogical Thought Content: Illogical, hallucination Speech: Normal volume, Regular rate and rhythm Intellectual Functioning: Average Suicidal Ideation: Suicidal Homicidal Ideation: Denies HI Impulse Control: Impaired Insight and Judgment: Impaired Memory: Prospective memory impaired Attention: Normal Orientation: Alert, oriented, Assessment and Plan - Psychiatric problem (1) Bipolar 2 disorder Current Visit: Yes Status: Acute F31.81 Treatment Plan Patient is known to me from prior encounters. Patient has received intervention and stabilized with medications less than 2 months ago. patient current risk factors are not currently modifiable with acute inpatient psychiatric hospitalization based on history, the patient is seeking secondary gain for inpatient care as regards to food, medication mostly ativan hence psychiatrically hospitalizing this patient is contraindicated, as it will reinforce maladaptive behaviors of coming to the hospital for those specific reasons. Patient presenting symptoms can be managed outpt with her psychiatrist. Protective factors include access to care, no history of suicide attempts, and disability income. MEDICATIONS: Risks, benefits and alternatives of medications discussed with the patient, q uestions answered and consent obtained from patient. PSYCHOTHERAPY: Supportive psychotherapy provided MEDICAL: Per primary team DELIRIUM PRECAUTIONS: Please re-orient patient frequently, keep lights on during the day, and minimize benzodiazepines and opiates as these medications could worsen patient's confusion. 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 Outpt psych, defer to case management LEGAL STATUS: [id number] rescinded FOLLOW-UP: Will sign off Thank you for the consult. Please contact with any questions and/or concerns. Medications and Allergies Allergies Allergy/AdvReac Type Severity Reaction Status Date / Time No Known Allergies Allergy Verified 03/19/20 19:21 Home Medications Medication Instructions Recorded Confirmed Last Taken Type LORazepam [Ativan] 1 mg PO TID 08/27/18 05/19/20 05/19/20 History Gabapentin [Neurontin] 800 mg PO QID 03/20/20 05/19/20 05/19/20 History Gabapentin 800 mg PO TID #90 capsule 05/28/20 Unknown Rx QUEtiapine [SEROquel] 50 mg PO QHS #30 tablet 05/28/20 Unknown Rx Sertraline [Zoloft] 25 mg PO QDAY #30 tablet 05/28/20 Unknown Rx clonazePAM [KlonoPIN] 0.5 mg PO BID #60 tablet 05/28/20 Unknown Rx Results Result Diagrams: 07/18/20 00:05 07/18/20 00:05 Abnormal lab results 07/18/20 07/18/20 07/18/20 Range/Units 00:05 00:05 00:05 MCH 34 H (28-32) pg MCHC 35 H (30-34) % Lymph % (Auto) 38.5 H (13.4-35.0) % Sodium 135 L (137-145) mmol/L Glucose 140 H (65-100) mg/dL Salicylates < 0.3 L (2.8-20.0) mg/dL Acetaminophen (10.0-30.0) ug/mL 07/18/20 Range/Units 00:05 MCH (28-32) pg MCHC (30-34) % Lymph % (Auto) (13.4-35.0) % Sodium (137-145) mmol/L Glucose (65-100) mg/dL Salicylates (2.8-20.0) mg/dL Acetaminophen 5.0 L (10.0-30.0) ug/mL All other labs normal. Assessment and Plan - Psychiatric problem (1) Bipolar 2 disorder Current Visit: Yes Status: Acute
[2020-07-18 07:19] VITALS: BP 136/96
== END 2020-07-18 13:50 | disposition home or self-care (01) ==
LOC: ED 21:57
DX: R45.851 Suicidal ideations (principal); F32.9 Major depressive disorder, single episode, unspecified; F41.9 Anxiety disorder, unspecified; F17.200 Nicotine dependence, unspecified, uncomplicated; Z98.890 Other specified postprocedural states; Z79.899 Other long term (current) drug therapy
CPT/HCPCS: 36415; 80048; 80307; 80320; 81001; 85025; G0480

== ENCOUNTER 2020-08-15 18:02 | Emergency (ER) | payer MEDICARE ==
[2020-08-15] MEDS ORDERED: ASPIRIN 325 MG TAB PO ONE (21:15)
[2020-08-15] MEDS ORDERED: ONDANSETRON 4 MG/2 ML INJ IV ONE (21:18)
--- NOTE | 2020-08-15 21:19 | Event Note ---
ED Screening Note Date of service: 08/15/20 Time: 21:17 ED Screening Note: 55 yr old female presents with left sided chest pain. Sharp and intermittent in nature. Onset was this morning. Radiates into left arm. With associated SOB, nausea and abd pain. She reports hx of anxiety and chronic right hand nerve damage but she denies any other pmhx This initial assessment/diagnostic orders/clinical plan/treatment(s) is/are subject to change based on patients health status, clinical progression and re- assessment by fellow clinical providers in the ED. Further treatment and workup at subsequent clinical providers discretion. Patient/guardian urged not to elope from the ED as their condition may be serious if not clinically assessed and managed. Initial orders include: Cardiac w/u ; Chest pain order set.
[2020-08-15 21:54] LABS: Basophils % (Auto) 0.5 % (0.0-1.8); Eosinophils # (Auto) 0.1 K/mm3 (0.0-0.4); Eosinophils % (Auto) 0.8 % (0.0-4.3); Hematocrit 39.5 % (30.3-42.9); Hemoglobin 13.5 gm/dl (10.1-14.3); Lymphocytes # (Auto) 2.1 K/mm3 (1.2-5.4); Lymphocytes % (Auto) 31.6 % (13.4-35.0); Mean Corpuscular HGB Conc 34 % (30-34); Mean Corpuscular Volume 96 fl (79-97); Monocytes # (Auto) 0.4 K/mm3 (0.0-0.8); Monocytes % (Auto) 5.7 % (0.0-7.3); Platelet Count 235 K/mm3 (140-440); Red Cell Distribution Width 13.1 % (13.2-15.2)
[2020-08-15 22:04] LABS: Alanine Aminotransferase 41 units/L (7-56); Albumin 4.7 g/dL (3.9-5); BUN/Creatinine Ratio 13; Blood Urea Nitrogen 10 mg/dL (7-17); Hemolysis Index 3
--- NOTE | 2020-08-15 22:07 | XRay Report ---
CHEST 2 VIEWS INDICATION / CLINICAL INFORMATION: Chest Pain. FINDINGS: SUPPORT DEVICES: None. HEART / MEDIASTINUM: No significant abnormality. LUNGS / PLEURA: No significant pulmonary or pleural abnormality. No pneumothorax. ADDITIONAL FINDINGS: No significant additional findings. IMPRESSION: 1. No acute findings. Signer Name: Juan Luis Wills MD Signed: 08/15/2020 10:02 PM Workstation Name: [id number]
[2020-08-15] MEDS ORDERED: ONDANSETRON 4 MG ODT TAB PO ONE (22:36)
[2020-08-15] MEDS ORDERED: ONDANSETRON 4 MG ODT TAB ONE (22:36)
--- NOTE | 2020-08-16 00:04 | Emergency Department Report ---
ED Chest Pain HPI - General Chief Complaint: Chest Pain Stated Complaint: CHEST PAIN/NAUSEA PUI?: No Time Seen by Provider: 08/15/20 23:35 Source: patient Mode of arrival: Ambulatory Limitations: No Limitations - History of Present Illness Initial Comments: Patient is a 55-year-old female that presents emergency room with complaints of chest pain. Patient states that her chest pain started at 10 AM this morning. Patient states that it is continuous. Patient states it is a dull pain in the left chest. Patient states the chest pain is worse with movement and palpation. Patient dates the chest pain is better with rest. Patient denies nausea vomiting. Patient denies shortness of breath. Patient denies diaphoresis. Patient denies recent travel. Patient denies recent international travel. Patient denies exposure to the novel coronavirus. Patient denies sick contacts. Patient denies fever and chills. Patient denies cough. Patient denies diarrhea. Patient denies coming in contact with anybody with symptoms of the novel coronavirus. History of anxiety. Patient denies CAD history. MD Complaint: chest pain -: Sudden Onset: during rest Pain Location: left chest Pain Radiation: none Severity scale (0 -10): 2 Quality: dull Consistency: constant Improves With: rest Worsens With: palpation, movement re: denies: nausea, vomting, diaphoresis, dyspnea, sense of impending doom Other Symptoms: denies: cough, fever, syncope, rash, acid taste in mouth, leg swelling, palpitations, burping Treatments Prior to Arrival: none Aspirin use within the Past 7 Days: (0) No - Related Data On Oral Contraceptives: No Home Medications Medication Instructions Recorded Confirmed Last Taken LORazepam [Ativan] 1 mg PO TID 08/27/18 07/18/20 05/19/20 Gabapentin [Neurontin] 800 mg PO QID 03/20/20 07/18/20 05/19/20 Previous Rx's Medication Instructions Recorded Last Taken Type clonazePAM [KlonoPIN] 0.5 mg PO BID #60 tablet 05/28/20 Unknown Rx Gabapentin 800 mg PO TID #90 capsule 07/18/20 Unknown Rx QUEtiapine [SEROquel] 50 mg PO QHS #30 tablet 07/18/20 Unknown Rx Sertraline [Zoloft] 25 mg PO QDAY #30 tablet 07/18/20 Unknown Rx Allergies Allergy/AdvReac Type Severity Reaction Status Date / Time No Known Allergies Allergy Verified 03/19/20 19:21 Heart Score - HEART Score History: Slightly suspicious EKG: Normal Age: 45-65 Risk factors: No known risk factors Troponin: < normal limit HEART Score: 1 ED Review of Systems ROS: Stated complaint: CHEST PAIN/NAUSEA Other details as noted in HPI Constitutional: denies: chills, fever Eyes: denies: eye pain, eye discharge, vision change ENT: denies: ear pain, throat pain Respiratory: denies: cough, shortness of breath, wheezing Cardiovascular: as per HPI, chest pain. denies: palpitations Endocrine: no symptoms reported Gastrointestinal: denies: abdominal pain, nausea, diarrhea Genitourinary: denies: urgency, dysuria, discharge Musculoskeletal: denies: back pain, joint swelling, arthralgia Skin: denies: rash, lesions Neurological: denies: headache, weakness, paresthesias Psychiatric: denies: anxiety, depression Hematological/Lymphatic: denies: easy bleeding, easy bruising ED Past Medical Hx - Past Medical History Previous Medical History?: Yes Hx Congestive Heart Failure: No Hx Diabetes: No Hx Renal Disease: No Hx Arthritis: No Hx Seizures: No Hx Psychiatric Treatment: Yes (anxiety, panic attack, Schizophrenia) Hx Asthma: No Hx COPD: No Hx Dementia: No Additional medical history: jhoana's dz, 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 - Surgical History Past Surgical History?: Yes Hx Cholecystectomy: No Hx Appendectomy: No Additional Surgical History: hand surgery - Family History Family history: no significant - Social History Smoking Status: Current Every Day Smoker Substance Use Type: None - Medications Home Medications: Home Medications Medication Instructions Recorded Confirmed Last Taken Type LORazepam [Ativan] 1 mg PO TID 08/27/18 07/18/20 05/19/20 History Gabapentin [Neurontin] 800 mg PO QID 03/20/20 07/18/20 05/19/20 History clonazePAM [KlonoPIN] 0.5 mg PO BID #60 tablet 05/28/20 07/18/20 Unknown Rx Gabapentin 800 mg PO TID #90 capsule 07/18/20 Unknown Rx QUEtiapine [SEROquel] 50 mg PO QHS #30 tablet 07/18/20 Unknown Rx Sertraline [Zoloft] 25 mg PO QDAY #30 tablet 07/18/20 Unknown Rx ED Physical Exam - General Limitations: No Limitations General appearance: alert, in no apparent distress - Head Head exam: Present: atraumatic, normocephalic - Eye Eye exam: Present: normal appearance - ENT ENT exam: Present: mucous membranes moist - Neck Neck exam: Present: normal inspection - Respiratory Respiratory exam: Present: normal lung sounds bilaterally, chest wall tenderness (Tenderness to palpation of the left chest wall. Palpation of the chest wall reproduces symptoms.). Absent: respiratory distress - Cardiovascular Cardiovascular Exam: Present: regular rate, normal rhythm. Absent: systolic murmur, diastolic murmur, rubs, gallop - GI/Abdominal GI/Abdominal exam: Present: soft, normal bowel sounds. Absent: distended, ten derness, guarding - Rectal Rectal exam: Present: deferred - Extremities Exam Extremities exam: Present: normal inspection - Back Exam Back exam: Present: normal inspection - Neurological Exam Neurological exam: Present: alert, oriented X3 - Psychiatric Psychiatric exam: Present: normal affect, normal mood - Skin Skin exam: Present: warm, dry, intact, normal color. Absent: rash ED Course Vital Signs 08/15/20 18:11 Temperature 98.0 F Pulse Rate 79 Respiratory 18 Rate Blood Pressure 105/53 [Right] O2 Sat by Pulse 97 Oximetry - Reevaluation(s) Reevaluation #1: I discussed all results and clinical findings with patient. I discussed plan of care with patient. Patient agrees with plan of care. Patient is stable for discharge. Patient will be discharged home. Patient given discharge instructions. Patient voiced understanding of discharge instructions. 08/16/20 00:06 MAGDIEL score - Magdiel Score Age > 65: (0) No Aspirin use within the Past 7 Days: (0) No 3 or more CAD Risk Factors: (0) No 2 or more Angina events in past 24 hrs: (0) No Known CAD with more than 50% Stenosis: (0) No Elevated Cardiac Markers: (0) No ST Deviation Greater than 0.5mm: (0) No MAGDIEL Score: 0 ED Medical Decision Making - Lab Data Result diagrams: 08/15/20 21:25 08/15/20 21:25 - EKG Data EKG shows normal: sinus rhythm, axis, intervals, QRS complexes, ST-T waves Rate: normal - Radiology Data Radiology results: report reviewed, image reviewed interpreted by me: Chest x-ray: No pneumonia, no pneumothorax, no foreign body, no osseous findings, no acute findings CHEST 2 VIEWS INDICATION / CLINICAL INFORMATION: Chest Pain. FINDINGS: SUPPORT DEVICES: None. HEART / MEDIASTINUM: No significant abnormality. LUNGS / PLEURA: No significant pulmonary or pleural abnormality. No pneumothorax. ADDITIONAL FINDINGS: No significant additional findings. IMPRESSION: 1. No acute findings. - Medical Decision Making Patient is a 55-year-old female that presents emergency with chest pain x14 hours. Patient on exam had reproducible chest pain and palpation of the chest wall reproduces her symptoms. Patient had labs done which was unremarkable and her troponin was negative. Patient EKG is unremarkable. Patient's chest x-ray is negative. Patient is stable for discharge. Patient discharged home. Patient information faxed over to our local submarine advisory team watch officer for further evaluation and treatment and risk stratification. Patient's chest pain can be worked up as an outpatient since her heart score is low. - Differential Diagnosis Chest wall pain, chest wall strain, chest pain, anxiety Critical care attestation.: If time is entered above; I have spent that time in minutes in the direct care of this critically ill patient, excluding procedure time. ED Disposition Clinical Impression: Chest wall pain, Chest wall tenderness Chest pain Qualifiers: Chest pain type: unspecified Qualified Code(s): R07.9 - Chest pain, unspecified Disposition: DC-01 TO HOME OR SELFCARE Is pt being admited?: No Does the pt Need Aspirin: No Condition: Stable Instructions: Chest Pain (ED), Nonspecific Chest Pain, Adult, [id number], Chest Wall Pain, [id number] Additional Instructions: Patient to follow-up with primary care in 2 to 3 days. Patient to follow-up with submarine advisory team watch officer in 2 to 3 days. Patient to rest. Patient to increase water. Patient to avoid strenuous exercise or heavy lifting until cleared by card iologist patient to take Tylenol or ibuprofen as needed for pain. Patient to return to the ER if condition worsens, changes or new symptoms arise. Referrals: PRIMARY CARE, [Primary Care Provider] - 2-3 Days PÉREZ BROWN MD [Staff Physician] - 2-3 Days Time of Disposition: 00:07
[2020-08-16 00:33] VITALS: BP 118/65
[2020-08-16 06:34] LABS: Bilirubin,Urine NEG (Negative); Blood,Urine NEG (Negative); Color,Urine Yellow (Yellow); Protein,Urine <15 mg/dL mg/dL (Negative); Urobilinogen,Urine < 2.0 mg/dL (<2.0)
[2020-08-16 06:40] LABS: Amphetamine Screen,Urine PRESUMPTIVE NEGATIVE; Benzodiazepines Screen,Urine PRESUMPTIVE NEGATIVE; Cannabinoid Screen,Urine PRESUMPTIVE NEGATIVE; Cocaine Screen,Urine PRESUMPTIVE NEGATIVE; Methadone Screen,Urine PRESUMPTIVE NEGATIVE; Opiate Screen,Urine PRESUMPTIVE NEGATIVE
== END 2020-08-16 00:34 | disposition home or self-care (01) ==
LOC: ED 18:02
DX: R07.89 Other chest pain (principal); F41.9 Anxiety disorder, unspecified; F17.200 Nicotine dependence, unspecified, uncomplicated; Z98.890 Other specified postprocedural states; Z79.899 Other long term (current) drug therapy
CPT/HCPCS: 36415; 71046; 80053; 80307; 81001; 84484; 85025; 93005; Q0162

== ENCOUNTER 2020-08-16 05:06 | Emergency (ER) | payer MEDICARE ==
[2020-08-16 05:29] VITALS: BP 114/75
--- NOTE | 2020-08-16 08:12 | Emergency Department Report ---
ED Psych HPI - General Chief Complaint: Psych Stated Complaint: SUICIDAL Time Seen by Provider: 08/16/20 06:16 Source: patient Mode of arrival: Ambulatory - History of Present Illness Initial Comments: This is a 55-year-old female who was seen last night for complaint of chest pain. She was diagnosed with chest wall pain. She went to the waiting room and decided that she needed to check back in again for suicidal ideation. Patient denies hallucinosis. She denies paranoid ideation. She has no intent to harm others. She states that she "feels suicidal every day". She tells me that she has never done anything to harm her self. She tells me that she is not homeless and lives right nearby the hospital. She states that she cannot go home because she does not have a ride. At the time of my encounter I am not finding any criteria for involuntary confinement. I do note that the psychiatriC staff came to a similar conclusion in July when she was seen here. She has been previously admitted to the [facility] psych unit. Patient states she is just on gabapentin and Ativan. She denies being on any medication for depression or a thought disorder. The record does indicate that the patient has schizophrenia. She is not on related medication. 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 I do not know the accuracy of this. Per July note Treatment Plan Patient is known to me from prior encounters. Patient has received intervention and stabilized with medications less than 2 months ago. patient current risk factors are not currently modifiable with acute inpatient psychiatric hospitalization based on history, the patient is seeking secondary gain for inpatient care as regards to food, medication mostly ativan hence psychiat rically hospitalizing this patient is contraindicated, as it will reinforce maladaptive behaviors of coming to the hospital for those specific reasons. Patient presenting symptoms can be managed outpt with her psychiatrist. - History of Present Psychiatric Illness Per ED Provider: Patient is a 55-year-old female that presents emergency room with complaints of suicidal ideation. Patient states she has a plan to overdose on her pills. Patient states she was to take a handful of her Advair and gabapentin in order to . Patient states she is depressed. Patient states she is anxious. Patient states her symptoms been going on for several days. Patient states her symptoms are worsening. Patient denies homicidal ideations. Patient denies hallucinations. Patient states she has had this in the past. Patient states she had suicide attempts in the past. PSYCH HPI Patient is a 55 year old single, unemployed currently on disability 55 year old female who resides in a correction with past psychiatric history of depression and panic attacks presents to the ED with chief complaint of suicidal ideation. Patient is well-known to me from prior multiple encounters, patient was recently admitted to the [facility] psych unit and was stabilized with outpatient medication recommendation placed. Patient presents today stating that she was just feeling suicidal and does not know why, statting "she guessed she was depressed". Patient was in bed trying not to cooperate with interview. After informing patient that I will be recommending outpatient follow-up with safety plan patient then got up and walked up to me, stating she is suidical because of her mom. PAST PSYCHIATRIC HISTORY: Diagnoses: suicidal thoughts, panic attacks Suicide attempts or Self-harm behavior: Denies Prior psychiatric hospitalizations: Twice Substance Abuse history: Denies Previous psychiatric medications tried: Ativan, Gabapentin Outpatient treatment: Yes MD Complaint: suicidal ideation -: year(s) Associated Psychiatric Symptoms: none History of same: Yes Quality: intermittent Improves With: none Worsens With: none Associated Symptoms: denies other symptoms (Although the patient was just here for chest pain she denies any current medical symptoms.) If Self Harm: admits thoughts of Details of Plan: Has never formulated a plan or acted upon it - Related Data Home Medications Medication Instructions Recorded Confirmed Last Taken LORazepam [Ativan] 1 mg PO TID 08/27/18 07/18/20 05/19/20 Gabapentin [Neurontin] 800 mg PO QID 03/20/20 07/18/20 05/19/20 Previous Rx's Medication Instructions Recorded Last Taken Type clonazePAM [KlonoPIN] 0.5 mg PO BID #60 tablet 05/28/20 Unknown Rx Gabapentin 800 mg PO TID #90 capsule 08/16/20 Unknown Rx QUEtiapine [SEROquel] 50 mg PO QHS #30 tablet 08/16/20 Unknown Rx Sertraline [Zoloft] 25 mg PO QDAY #30 tablet 08/16/20 Unknown Rx Allergies Allergy/AdvReac Type Severity Reaction Status Date / Time No Known Allergies Allergy Verified 03/19/20 19:21 ED Review of Systems ROS: Stated complaint: SUICIDAL Other details as noted in HPI Constitutional: denies: chills, fever Eyes: denies: eye pain, vision change ENT: denies: ear pain, throat pain Respiratory: denies: cough, shortness of breath, wheezing Cardiovascular: denies: chest pain, palpitations Endocrine: no symptoms reported Gastrointestinal: denies: abdominal pain, nausea, diarrhea Genitourinary: denies: urgency, dysuria, discharge Musculoskeletal: denies: back pain, joint swelling Skin: denies: rash, lesions Neurological: denies: headache, weakness, paresthesias Psychiatric: as per HPI Hematological/Lymphatic: denies: easy bleeding, easy bruising ED Past Medical Hx - Past Medical History Hx Congestive Heart Failure: No Hx Diabetes: No Hx Renal Disease: No Hx Arthritis: No Hx Seizures: No Hx Psychiatric Treatment: Yes (anxiety, panic attack, Schizophrenia) Hx Asthma: No Hx COPD: No Hx Dementia: No Additional medical history: jhoana's dz, 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 - Surgical History Hx Cholecystectomy: No Hx Appendectomy: No Additional Surgical History: hand surgery - Social History Smoking Status: Current Every Day Smoker Substance Use Type: None - Medications Home Medications: Home Medications Medication Instructions Recorded Confirmed Last Taken Type LORazepam [Ativan] 1 mg PO TID 08/27/18 07/18/20 05/19/20 History Gabapentin [Neurontin] 800 mg PO QID 03/20/20 07/18/20 05/19/20 History clonazePAM [KlonoPIN] 0.5 mg PO BID #60 tablet 05/28/20 07/18/20 Unknown Rx Gabapentin 800 mg PO TID #90 capsule 08/16/20 Unknown Rx QUEtiapine [SEROquel] 50 mg PO QHS #30 tablet 08/16/20 Unknown Rx Sertraline [Zoloft] 25 mg PO QDAY #30 tablet 08/16/20 Unknown Rx ED Physical Exam - General Limitations: No Limitations ED Course Vital Signs 08/16/20 05:26 Temperature 98.4 F Pulse Rate 85 Respiratory 20 Rate Blood Pressure 114/75 O2 Sat by Pulse 97 Oximetry - Reevaluation(s) Reevaluation #1: Patient was seen and evaluated by psychiatric staff. She was deemed appropriate for outpatient management. Several prescriptions were recommended by the psychiatric PA as well as outpatient follow-up. The patient will be discharged. She was deemed to have no criteria for involuntary confinement. 08/16/20 11:34 Critical care attestation.: If time is entered above; I have spent that time in minutes in the direct care of this critically ill patient, excluding procedure time. ED Disposition Clinical Impression: Bipolar 2 disorder Disposition: DC-01 TO HOME OR SELFCARE Is pt being admited?: No Does the pt Need Aspirin: No Condition: Stable Instructions: Managing Bipolar Disorder, Suicidal Feelings: How to Help Yourself, Suicide Hotline Additional Instructions: OUTPATIENT MENTAL HEALTH RESOURCES [facility], [facility] Sue Ni MD: [address] [place] [address] [place] [address] [facility]: [facility] [address] [place] [address] [place] [address] [phone] [facility]: [facility] Healthcare: [address] [facility] [place] [address] [facility] [id number] [facility]: Mitchell Leary MD: [address] [place] [id number] [facility]: [address] [place], [place] [id number] [phone] [place] CRISIS AND ACCESS LINE: Prescriptions: Gabapentin 800 mg PO TID #90 capsule QUEtiapine [SEROquel] 50 mg PO QHS #30 tablet Sertraline [Zoloft] 25 mg PO QDAY #30 tablet Referrals: PRIMARY CAREMD [Primary Care Provider] - 3-5 Days Time of Disposition: 11:36
[2020-08-16 08:17] LABS: Bilirubin,Urine NEG (Negative); Blood,Urine NEG (Negative); Color,Urine Straw (Yellow); Protein,Urine <15 mg/dL mg/dL (Negative); Urobilinogen,Urine < 2.0 mg/dL (<2.0)
[2020-08-16 08:24] LABS: Amphetamine Screen,Urine Negative; Benzodiazepines Screen,Urine Negative; Cannabinoid Screen,Urine Negative; Cocaine Screen,Urine Negative; Methadone Screen,Urine Negative; Opiate Screen,Urine Negative
--- NOTE | 2020-08-16 10:32 | Consultation ---
History of Present Illness - Reason for Consult Consult date: 08/16/20 Reason for consult: MHE Requesting physician: LESLIE CONNER - History of Present Psychiatric Illness Per ED Provider: This is a 55-year-old female who was seen last night for complaint of chest pain. She was diagnosed with chest wall pain. She went to the waiting room and decided that she needed to check back in again for suicidal ideation. Patient denies hallucinosis. She denies paranoid ideation. She has no intent to harm others. She states that she "feels suicidal every day". She tells me that she has never done anything to harm her self. She tells me that she is not homeless and lives right nearby the hospital. She states that she cannot go home because she does not have a ride. At the time of my encounter I am not finding any criteria for involuntary confinement. I do note that the psychiatriC staff came to a similar conclusion in July when she was seen here. She has been previously admitted to the [facility] psych unit. Patient states she is just on gabapentin and Ativan. She denies being on any medication for depression or a thought disorder. The record does indicate that the patient has schizophrenia. She is not on related medication. 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 I do not know the accuracy of this. PSYCH HPI Patient is a 55 year old single, unemployed currently on disability 55 year old female who resides in a halfway with past psychiatric history of depression and panic attacks presents to the ED with chief complaint of suicidal ideation. Patient is well-known to me from prior multiple encounters, patient had presented to the ED yesterday with complaints of chest pain where she was worked up and discharged without any psychiatric complaints, patient then presented back to facility complaining of suicidal ideation. Patient has had multiple visits last year for psychiatric inpatient management and also visited earlier this year with chief complaint of suicidal ideation before being discharged. Today patient requesting to be started back on her medications, says she is suicidal but not as bad as before. PAST PSYCHIATRIC HISTORY: Diagnoses: suicidal thoughts, panic attacks Suicide attempts or Self-harm behavior: Twice Prior psychiatric hospitalizations: Multiple Substance Abuse history: Denies Previous psychiatric medications tried: Ativan, Gabapentin Outpatient treatment: Yes PAST MEDICAL HISTORY: None reported Family Psychiatric History None reported SOCIAL HISTORY Marital Status: Single Living Arrangements: concern for homelessness Employment Status: Disabled Access to guns/weapons: Denied Education: High school diploma History of Abuse: Denies Legal History: Denies ROS: Constitutional: Negative for weight loss ENT: Negative for stridor Respiratory: Negative for cough or hemoptysis All other systems reviewed and are negative MENTAL STATUS EXAMINATION General Appearance and Behavior: Age appropriate, fair hygiene, wearing appropriate clothes, good eye contact, cooperative polite with questioning. Cooperation: Participating and Guarded Psychomotor Behavior: Psychomotor normal Mood: Depressed Affect and affective range: incongruent with mood Thought Process: Illogical Thought Content: Illogical, hallucination Speech: Normal volume, Regular rate and rhythm Intellectual Functioning: Average Suicidal Ideation: Suicidal passive Homicidal Ideation: Denies HI Impulse Control: Impaired Insight and Judgment: Impaired Memory: Prospective memory impaired Attention: Normal Orientation: Alert, oriented, Assessment and Plan - Psychiatric problem (1) Bipolar 2 disorder Current Visit: Yes Status: Acute F31.81 Treatment Plan Patient is known to me from prior encounters. Patient has received intervention and stabilized with medications less than 2 months ago. patient current risk factors are not currently modifiable with acute inpatient psychiatric hospitalization based on history, the patient is seeking secondary gain for inpatient care as regards to food, medication mostly ativan hence psychiatrically hospitalizing this patient is contraindicated, as it will reinforce maladaptive behaviors of coming to the hospital for those specific reasons. Patient presenting symptoms can be managed outpt with her psychiatrist. WIll renew pts medications Protective factors include access to care, no history of suicide attempts, and disability income. MEDICATIONS: Risks, benefits and alternatives of medications discussed with the patient, questions answered and consent obtained from patient. PSYCHOTHERAPY: Supportive psychotherapy provided MEDICAL: Per primary team DELIRIUM PRECAUTIONS: Please re-orient patient frequently, keep lights on during the day, and minimize benzodiazepines and opiates as these medications could worsen patient's confusion. SPAGHETTI PRESS HELPER: DISPOSITION: Do not Recommend acute inpatient psychiatric hospitalization at this time. Outpt psych, defer to case management LEGAL STATUS: [id number] rescinded FOLLOW-UP: Will sign off Thank you for the consult. Please contact with any questions and/or concerns. Medications and Allergies Allergies Allergy/AdvReac Type Severity Reaction Status Date / Time No Known Allergies Allergy Verified 03/19/20 19:21 Home Medications Medication Instructions Recorded Confirmed Last Taken Type LORazepam [Ativan] 1 mg PO TID 08/27/18 07/18/20 05/19/20 History Gabapentin [Neurontin] 800 mg PO QID 03/20/20 07/18/20 05/19/20 History clonazePAM [KlonoPIN] 0.5 mg PO BID #60 tablet 05/28/20 07/18/20 Unknown Rx Gabapentin 800 mg PO TID #90 capsule 08/16/20 Unknown Rx QUEtiapine [SEROquel] 50 mg PO QHS #30 tablet 08/16/20 Unknown Rx Sertraline [Zoloft] 25 mg PO QDAY #30 tablet 08/16/20 Unknown Rx Mental Status Exam - Vital signs Last Vital Signs Temp 98.4 F 08/16/20 05:26 Pulse 85 08/16/20 05:26 Resp 20 08/16/20 05:26 BP 114/75 08/16/20 05:26 Pulse Ox 97 08/16/20 05:26 Results Abnormal lab results 08/16/20 08/16/20 Range/Units 05:48 05:48 Salicylates < 0.3 L (2.8-20.0) mg/dL Acetaminophen 5.0 L (10.0-30.0) ug/mL All other labs normal.
== END 2020-08-16 12:08 | disposition home or self-care (01) ==
LOC: ED 05:06
DX: F31.9 Bipolar disorder, unspecified (principal); F17.200 Nicotine dependence, unspecified, uncomplicated; Z98.890 Other specified postprocedural states; Z79.899 Other long term (current) drug therapy
CPT/HCPCS: 36415; 80307; 80320; 81001; G0480